=== PATIENT | female | born 1950 | race Caucasian/White ===

== ENCOUNTER 2016-09-08 12:12 | Emergency (ER) | payer MEDICARE, BC ==
[2016-09-08] MEDS ORDERED: NORMAL SALINE 1,000 ML IV ONE (12:36)
[2016-09-08] MEDS ORDERED: FAMOTIDINE 10 MG/ML VIAL IV ONE ×2 (12:52→13:35)
[2016-09-08 12:54] LABS: Hematocrit 29.9 % (37.0-47.0); Hemoglobin 9.5 gm/dL (12.5-16.0); Mean Cell Volume 86.7 fl (78-100); Mean Corpuscular Hemoglobin 27.5 pg (27-31); Mean Corpuscular Hgb Conc 31.8 g/dl (32-36); Neutrophil # 5.1 K/mm3 (1.3-6.0); Neutrophil % 62.4 % (42-75.0); Platelet Count 136 K/mm3 (150-450); Red Blood Count 3.45 M/mm3 (4.2-5.4); White Blood Count 8.2 K/mm3 (4.0-10.5)
[2016-09-08 13:17] LABS: Albumin * 3.1 gm/dl (3.4-5.0); BUN/Creatinine Ratio 42.3 (9.0-21.6); Bilirubin, Total 0.6 mg/dL (0.0-1.1); Ca. Corrected For Albumin 9.1 mg/dL (8.4-10.2); Calcium * 8.7 mg/dL (7.9-10.9); Carbon Dioxide 27.5 mmol/L (24-32.6); Potassium 4.5 mmol/L (3.4-4.6); Total Protein 7.2 gm/dL (6.2-8.2)
[2016-09-08 13:19] LABS: Prothrombin Time (Patient) 10.9 Seconds (9.4-11.4)
[2016-09-08 13:25] LABS: INR 1.05 INR (0.90-1.10)
--- NOTE | 2016-09-08 13:28 | ERNOTE ---
GI Bleeding/Rectal Pain ER Date of Service: 09/08/16 Time Seen by Provider: 09/08/16 12:29 Immunizations: IMMUNIZATION HX Immunizations Up to Date Yes History of Influenza Vaccine Yes Hx Pneumococcal Vaccination Yes Allergies/Adverse Reactions: Allergies lactose Adverse Reaction (Mild, Verified 09/08/16 12:30) GAS latex Adverse Reaction (Mild, Verified 09/08/16 12:30) RASH Home Medications: HOME MEDICATIONS Insulin Aspart [Novolog Flexpen] 10 unit SQ AC 09/18/13 [Last Taken Unknown] Insulin Glargine,Hum.rec.anlog [Lantus] 30 unit SQ BID 09/18/13 [Last Taken Unknown] Cholecalciferol (Vitamin D3) [Vitamin D3] 1,000 unit PO DAILY 12/01/14 [Last Taken Unknown] Aspirin [Aspirin EC] 81 mg PO DAILY 04/20/16 [Last Taken Unknown] Nadolol [Corgard] 40 mg PO DAILY 09/08/16 [Last Taken Unknown] Narrative: Here for vomiting coffee ground and feeling dizzy when she stands up. has a history of Cirrhosis and esophageal varices - Patient's Past Medical History Patient History - Medical: Anemia, Anesthesia Reaction, Arthritis, Diabetes Type 2, Depression, GERD, Headache, Liver Disease, UTI'S Patient History - Cardiac/Respiratory: Myocardial Infarction Patient History - Cancer: No Hx of Cancer Patient History - Surgical Procedures: Cataracts, Colonoscopy, Cardiac stent, EGD, Hysterectomy, Other Patient History - Other: None LMP (females 10-50): Menopausal - Family History Mother Family History - Medical: No pertinent hx Family History - Cardiac/Respiratory: No pertinent hx - Social History Living Situations: home Abuse History: No History of abuse Psych History: Hx of Depression Smoking Status: Never smoker Alcohol Use: none Drug Use: none - Immunizations Immunizations Up to Date: Yes Hx Pneumococcal Vaccination: Yes History of Influenza Vaccine: Yes ED Progress - Vital Signs Vital Signs: Vital Signs 09/08/16 09/08/16 12:22 12:38 Temperature 35.9 C L Pulse Rate 72 78 Respiratory 16 Rate Blood Pressure 113/56 82/38 O2 Sat by Pulse 100 Oximetry - Progress/Reassessment Chief Complaint: GI Bleed Departure Clinical Impression: Upper GI bleeding - Departure Disposition: [facility] Condition: Fair Referrals: Kavya Jacinto MD [Primary Care Provider] -
[2016-09-08] MEDS ORDERED: ONDANSETRON HCL/PF 2 MG/ML VIAL IV ONE (14:22)
[2016-09-08] MEDS ORDERED: ONDANSETRON HCL/PF 2 MG/ML VIAL ONE (14:26)
[2016-09-08 14:40] VITALS: BP 135/50
== END 2016-09-08 14:42 | disposition short-term general hospital (02) ==
LOC: ER 12:12
DX: K92.2 Gastrointestinal hemorrhage, unspecified (principal); E11.9 Type 2 diabetes mellitus without complications; Z79.4 Long term (current) use of insulin

== ENCOUNTER 2016-10-19 07:18 | Emergency (ER) | payer MEDICARE, BC ==
[2016-10-19] MEDS ORDERED: ONDANSETRON HCL/PF 2 MG/ML VIAL IV ONE ×2 (07:45→09:39)
[2016-10-19] MEDS ORDERED: NORMAL SALINE 1,000 ML IV ONE (07:46)
--- NOTE | 2016-10-19 07:53 | ERNOTE ---
<Kyler Berrios - Last Filed: 10/19/16 08:15> Medical Problem HPI - General Chief Complaint: Nausea/Vomiting Time Seen by Provider: 10/19/16 07:45 Source: patient Exam Limitations: no limitations - Immun/Allergies/Home Medications Immunizations: IMMUNIZATION HX Immunizations Up to Date Yes History of Influenza Vaccine Yes Hx Pneumococcal Vaccination Yes Allergies/Adverse Reactions: Allergies lisinopril Allergy (Verified 10/19/16 07:36) lactose Adverse Reaction (Mild, Verified 10/19/16 07:36) GAS latex Adverse Reaction (Mild, Verified 10/19/16 07:36) RASH Home Medications: HOME MEDICATIONS Insulin Aspart [Novolog Flexpen] 13 unit SQ AC 09/18/13 [Last Taken Unknown] Insulin Glargine,Hum.rec.anlog [Lantus] 30 unit SQ BID 09/18/13 [Last Taken Unknown] Cholecalciferol (Vitamin D3) [Vitamin D3] 1,000 unit PO DAILY 12/01/14 [Last Taken Unknown] Aspirin [Aspirin EC] 81 mg PO DAILY 04/20/16 [Last Taken Unknown] Nadolol [Corgard] 40 mg PO DAILY 09/08/16 [Last Taken Unknown] Dicyclomine HCl [Bentyl] 1 tab PO Q6H PRN #20 tablet 10/19/16 [Last Taken Unknown] Metoclopramide HCl [Reglan] 1 tab PO Q6H PRN #30 tab 10/19/16 [Last Taken Unknown] - History of Present History Narrative: approx 20:00 last night pt began to have nausea and an hour or two later began to vomit small amounts of clear liquid. Pt has been unable to hold down anything throughout the night. Timing: intermittent Severity: moderate Modifying Factors - (Worsens): Present: eating Review of Systems - Review of Systems Constitutional: Present: fatigue. Absent: recent illness EYE: Present: no symptoms reported ENT: Present: no symptoms reported Respiratory: Absent: shortness of breath Cardiology: Absent: chest pain Gastrointestinal/Abdominal: Present: See HPI, constipation - last BM Monday morning, abdominal pain, other - Melana and coffee ground emesis 3 weeks ago transferred to [facility], no source of bleeding found.. Absent: diarrhea Genitourinary: Present: no symptoms reported Musculoskeletal: Present: no symptoms reported Skin: Present: no symptoms reported Neurological: Present: no symptoms reported Endocrine: Present: no symptoms reported Hematologic/Lymphatic: Present: other - Anemia due to recent GI bleed, recieved Iron Psych: Present: no symptoms reported - Patient's Past Medical History Patient History - Medical: Anemia, Anesthesia Reaction, Arthritis, Diabetes Type 2, Depression, GERD, Headache, Liver Disease, UTI'S Patient History - Cardiac/Respiratory: Myocardial Infarction Patient History - Cancer: No Hx of Cancer Patient History - Surgical Procedures: Cataracts, Colonoscopy, Cardiac stent, EGD, Hysterectomy, Other Patient History - Other: None - Family History Mother Family History - Medical: No pertinent hx Family History - Cardiac/Respiratory: No pertinent hx - Social History Living Situations: alone Abuse History: No History of abuse Psych History: Hx of Depression Smoking Status: Never smoker Have you smoked in the past 12 months: No Do you dip or chew tobacco: No Alcohol Use: none Drug Use: none - Immunizations Immunizations Up to Date: Yes Hx Pneumococcal Vaccination: Yes History of Influenza Vaccine: Yes Physical Exam - Physical Exam General Appearance: Present: wd/wn, alert, no apparent distress Eye Exam: Normal inspection: bilateral, PERRL: bilateral Ears, Nose, Throat: Present: normal ENT inspection Neck: Present: normal inspection, nontender Respiratory: Present: no respiratory distress, normal breath sounds, lungs clear Cardiovascular/Chest: Present: regular rate, rhythm, no murmur, normal peripheral pulses Gastrointestinal/Abdominal: Present: normal bowel sounds, tenderness - diffuse across R & LUQ . Absent: distended, guarding, rebound Back Exam: Present: normal inspection, normal range of motion Neurological Exam: Present: alert, oriented, normal mood/affect, no motor/ sensory deficits Skin Exam: Present: normal color, warm/dry ED Progress - Vital Signs Vital Signs: Vital Signs 10/19/16 07:24 Temperature 37.3 C Pulse Rate 72 Respiratory 14 Rate Blood Pressure 123/48 - Progress/Reassessment Chief Complaint: Nausea/Vomiting Progress:: Unchanged - Transfer of Care Physician Sign Out: Kyler Berrios Receiving Physician: Kyle Glass Pending Results: Labs, X-ray results Departure - Departure Clinical Impression: Vomiting Qualifiers: Vomiting type: unspecified Vomiting Intractability: non-intractable Nausea presence: with nausea Qualified Code(s): R11.2 - Nausea with vomiting, unspecified Disposition: Home self-care Instructions: Nausea and Vomiting, Adult, [id number] Prescriptions: Dicyclomine HCl [Bentyl] 1 tab PO Q6H PRN #20 tablet PRN Reason: Abdominal cramps Metoclopramide HCl [Reglan] 1 tab PO Q6H PRN #30 tab PRN Reason: Nausea And Vomiting <QuanKyle - Last Filed: 10/19/16 11:48> Medical Problem HPI - Narrative Date of Service: 10/19/16 - Immun/Allergies/Home Medications Immunizations: IMMUNIZATION HX Immunizations Up to Date Yes History of Influenza Vaccine Yes Hx Pneumococcal Vaccination Yes ED Progress - Results and Orders Patient's Lab Results:: I have reviewed the patient's lab results. - Vital Signs Patient's Vital Signs:: I have reviewed the patient's vital signs. Vital Signs: Vital Signs 10/19/16 10/19/16 10/19/16 07:24 07:41 08:08 Temperature 37.3 C 37.3 C Pulse Rate 72 72 71 Respiratory 14 14 13 Rate Blood Pressure 123/48 133/40 123/40 O2 Sat by Pulse 96 95 96 Oximetry 10/19/16 10/19/16 10/19/16 09:00 09:36 10:29 Temperature 36.5 C 37.6 C H Pulse Rate 80 81 79 Respiratory 12 14 14 Rate Blood Pressure 144/64 145/65 123/56 O2 Sat by Pulse 94 93 91 Oximetry 10/19/16 10:48 Temperature 37.3 C Pulse Rate 77 Respiratory 14 Rate Blood Pressure 132/63 O2 Sat by Pulse 95 Oximetry - Progress/Reassessment Progress:: Improved - at discharge
[2016-10-19 08:00] LABS: Hematocrit 29.4 % (37.0-47.0); Hemoglobin 9.3 gm/dL (12.5-16.0); Mean Cell Volume 77.2 fl (78-100); Mean Corpuscular Hemoglobin 24.4 pg (27-31); Mean Corpuscular Hgb Conc 31.6 g/dl (32-36); Mean Platelet Volume 9.9 fl (6.0-9.5); Neutrophil # 10.8 K/mm3 (1.3-6.0); Neutrophil % 80.3 % (42-75.0); Platelet Count 160 K/mm3 (150-450); Red Blood Count 3.81 M/mm3 (4.2-5.4); Red Cell Distribution Width 17.2 % (11.5-14.0); White Blood Count 13.5 K/mm3 (4.0-10.5)
[2016-10-19] MEDS ORDERED: ONDANSETRON HCL/PF 2 MG/ML VIAL ONE ×2 (08:02→09:35)
--- OUTSIDE RECORDS SUMMARY | 2016-10-19 08:10 | XMS REPORT | Continuity of Care Document ---
:1950 Author Organization [facility] ([facility]) Address [address] [place] [address] Phone [phone] Care Team Providers Name Role Phone Kavya Jacinto Primary Care Provider [phone] Source Comments This disclosure is being made pursuant to the Care Everywhere program, applicable federal and state laws, and may not contain all informaitonavailable regarding this patient.[facility] ([facility]) Active Allergies and Adverse Reactions Allergen Noted Date Severity Reactions Comments Latex 09/08/2015 Rash Current Medications Prescription Sig. Disp. Refills Start End Date Status Date DULoxetine 30 mg XR Take 30 mg by Active capsule mouth daily. nadolol 40 mg Take 1 tablet (40 30 tablet 11 Active tablet mg total) by mouth 6 daily. INSULIN Inject 30 Units Active GLARGINE,HUM.REC.AN subcutaneously 2 LOG (LANTUS SC) times daily. INSULIN ASPART Inject 10 Units Active (NOVOLOG SC) subcutaneously 3 times daily. furosemide 20 mg Take 1 tablet (20 30 tablet 3 Active tablet mg total) by mouth 7 daily. vitamin E 400 unit Take 400 Units by Active capsule mouth daily. spironolactone 25 Take 25 mg by Active mg tablet mouth daily. CALCIUM Take 1 tablet by Active CARBONATE/VITAMIN mouth daily. D3 (CALCIUM + D PO) aspirin 81 mg EC Take 1 tablet (81 30 tablet 0 Active tablet mg total) by mouth 7 daily. Please start taking after two repeat hemoglobins are drawn within 7 days. You can restart this medication after 09/17 pantoprazole 40 mg Take 1 tablet (40 60 tablet 1 Active EC tablet mg total) by mouth 7 2 times daily. pantoprazole 40 mg Take 1 tablet (40 45 tablet 0 10/19/19 Discontinued EC tablet mg total) by mouth 7 17 2 times daily. Active Problems Problem Noted Date Alcoholic cirrhosis of liver without ascites 12/15/2015 Overview: With varices Diabetes mellitus type 2, controlled 09/08/2015 Diabetic neuropathy 09/08/2015 Unsteady gait 09/08/2015 Frequent falls 09/08/2015 Essential hypertension 09/08/2015 Depression 09/08/2015 GERD (gastroesophageal reflux disease) 09/08/2015 Coronary artery disease involving [place] coronary artery without angina 2015 pectoris Vision disturbance 09/08/2015 Stress incontinence 09/08/2015 Resolved Problems Problem Noted Date Resolved Date Gastrointestinal hemorrhage 09/08/2016 09/09/2016 Most Recent Encounters Date Type Specialty Providers Description 10/18/2016 Telephone Med GI/Hepatology Jayda Tran Chief Comp: Need Prior Authorization 10/18/2016 Refill Med GI/Hepatology Neo Gary, Dx: Alcoholic cirrhosis RN of liver without ascites (Primary Dx) 10/07/2016 Telephone Med GI/Hepatology Radha Ellison RN 09/13/2016 Nurse Triage General Care Jessie Hampton, Chief Comp: IP Inpatient - Adult training developer Follow-up Call 09/08/2016 - [facility] Jb Adamson Dx: Gastrointestinal 09/10/2016 Encounter Inpatient - Adult MD hemorrhage with Ball, Prosper hematemesis (Primary JrMD [place] Dx) Tawnya Gallego MD Iyer, Priyanka, MD 09/05/2016 Refill Med GI/Hepatology Kevin, Dx: 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 (Primary Dx) 09/02/2016 Orders/Notes Transplant JAMMIE Brown/GUILHERME/CRYS Cornelius MD 08/25/2016 Office Visit Med GI/Hepatology Kevin Dx: 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 (Primary Dx) 08/25/2016 Hospital Radiology Melvin Stark Dx: Pre-procedure lab Encounter MD Beau exam (Primary Dx) Immunizations Name Dates Previously Given Next Due Influenza, unspecified 05/07/2015 Social History Tobacco Use Types Packs/Day Years Used Date Never Smoker Smokeless Tobacco: Never Used Tobacco Cessation:Counseling Given: Yes Comments: Alcohol Use Drinks/Week oz/Week Comments No 0 Standard drinks or equivalent 0.0 Quit 30 years ago Last Filed Vital Signs Vital Sign Reading Time Taken Blood Pressure 116/54 09/10/2016 11:11 AM BIOLOGY LECTURER Pulse 81 09/10/2016 11:11 AM BIOLOGY LECTURER Temperature 36.8 C (98.2 F) 09/10/2016 11:11 AM BIOLOGY LECTURER Respiratory Rate 16 09/10/2016 11:11 AM BIOLOGY LECTURER Height 1.702 m (5' 7") 09/08/2016 11:45 PM BIOLOGY LECTURER Weight 83.7 kg (184 lb 8.4 oz) 09/08/2016 11:45 PM BIOLOGY LECTURER Body Mass Index 28.89 09/08/2016 11:45 PM BIOLOGY LECTURER Oxygen Saturation 97% 09/10/2016 11:11 AM BIOLOGY LECTURER Plan of Care Date Type Specialty Providers Description 11/14/2016 Appointment Radiology Subj: Appointment Scheduled 03/23/2017 Appointment Med GI/Hepatology Adryan Brown MD Subj: Appointment [address] [place] [address] [phone] (Fax) Health Maintenance Due Date Last Done Comments HCV Screening 1950 Hepatitis B Vaccine (1 of 3 - Primary 1950 Series) Tdap Vaccine 1960 DIABETIC: Cholesterol 1967 Diabetic: Hdl 1967 Diabetic: Ldl 1967 DIABETIC: Microalbumin 1967 DIABETIC: Triglycerides 1967 Td Vaccine 1967 Mammogram 1989 Colonoscopy 1999 Zoster Vaccine 2009 Osteoporosis Screening (DXA Bone Density) 2014 Pneumococcal Vaccine (1 of 2 - PCV13) 2014 DIABETIC: Foot Exam 09/08/2015 DIABETIC: Retinal Eye Exam 09/08/2015 Influenza Vaccine: Seasonal (#1) 03/07/2016 05/07/2015 DIABETIC: Hemoglobin A1C 06/16/2016 12/15/2015, 09/08/2015 Results from Last 3 Months HEMOGLOBIN (09/10/2016 1:06 PM)Only the most recent of2 resultswithin the time period is included. Component Value Range Hemoglobin 8.7(L) 11.9-15.5 g/dL Specimen Whole Blood BLOOD GLUCOSE, BEDSIDE (09/10/2016 12:09 PM)Only the most recent of9 resultswithin the time period is included. Component Value Range Glucose, Accu-Chek 344(H) 65-99 mg/dL Specimen Blood, capillary BASIC METABOLIC PANEL W/ CALCIUM (CHEM 8) (09/10/2016 8:12 AM)Only the most recent of2 resultswithin the time period is included. Component Value Range Sodium 137 135-145 mEq/L Potassium 4.1 3.5-5.0 mEq/L Chloride 103 95-107 mEq/L CO2 25 22-29 mEq/L Anion Gap 9 8-18 mEq/L BUN 13 10-20 mg/dL Creatinine 0.9Comment: 0.5-1.0 mg/dL Creatinine switched to enzymatic method on 12/14/2010.GFR equation switched to IDMS-traceable MDRD equation on 12/14/2010. Calculated GFR values are not valid in clinical settings where serum creatinine is changing. Glucose 308(H)Comment: 65-99 mg/dL The Expert Committee on the Diagnosis and Classification of Diabetes has defined impaired fasting glucose as greater than or equal to 100 mg/dL but less than 126 mg/dL.(Diabetes Care 28 (Suppl 1)S41,2005) Calcium 8.1(L) 8.5-10.5 mg/dL Calculated GFR 62 >60 mL/min/1.73 m2 Specimen Blood CBC (COMPLETE BLOOD COUNT) (09/10/2016 8:12 AM)Only the most recent of2 resultswithin the time period is included. Component Value Range WBC Count 6.0 3.7-10.5 K/MM3 RBC Count 3.12(L) 4.00-5.20 M/MM3 Hemoglobin 8.6(L) 11.9-15.5 g/dL Hematocrit 27(L) 35-47 % MCV (Mean Corpuscular Volume) 87 82-99 FL MCH (Mean Corpuscular Hemoglobin) 28 25-35 PG MCHC (Mean Corpuscular Hemoglobin Concentration) 32 32-36 % Platelet Count 104(L) 150-400 K/MM3 MPV (Mean Platelet Volume) 11.3 9.4-12.3 FL RBC Dist Width-STD 50.4(H) 36.4-46.3 FL RBC Distrib Width 15.8(H) 9.0-14.5 % Nucleated RBC 0 /100 WBC Specimen Whole Blood ENDOSCOPY UPPER (09/09/2016 12:30 PM) Narrative Aniket Wagner MD 09/09/2016 12:30 PM ENDOSCOPY UPPER Esophagogastroduodenoscopy (EGD) procedure note Procedure Date: 09/09/2016 Procedure: Esophagogastroduodenoscopy (EGD) Indications: coffee ground emesis Attending Staff: Andree Vick MD Fellow: MD Kevin Referring Physician: Kavya Jacinto Consent: The risks, benefits, indications, potential complications, and alternatives were explained to the patient and informed consent obtained. Medications No current facility-administered medications on file prior to encounter. Current Outpatient Prescriptions on File Prior to Encounter Medication Sig Dispense Refill aspirin 81 mg EC tablet Take 81 mg by mouth daily. DULoxetine 30 mg XR capsule Take 30 mg by mouth daily. furosemide 20 mg tablet Take 1 tablet (20 mg total) by mouth daily. 30 tablet 3 INSULIN ASPART (NOVOLOG SC) Inject 10 Units subcutaneously 3 times daily. INSULIN GLARGINE,HUM.REC.ANLOG (LANTUS SC) Inject 30 Units subcutaneously 2 times daily. nadolol 40 mg tablet Take 1 tablet (40 mg total) by mouth daily. 30 tablet 11 Allergies: Allergies Allergen Reactions Latex Rash ASA Class: 3 Preoperative Anesthesia Assessment: Based on the pre-procedure assessment, including review of the patient's medical history, medications, allergies, and review of systems, elizabeth been deemed to be an appropriate candidate for conscious sedation; she was therefore sedated with the medications listed below. Procedural Medications: Versed 4 mg IV, fentanyl 25 mcg IV The procedure sedation was given under my direction from 09/09/16 12:11 PM to 09/09/16 12:18 PM. Description of Procedure: The patient was placed in the left lateral decubitus position. The patient was monitored continuously withpulse oximetry, blood pressure monitoring, and direct observations. The gastroscope was inserted into the mouth and advanced under direct vision to third portion of the duodenum.A careful inspection was made as the gastroscope was withdrawn, including a retroflexed view of the proximal stomach; findings and interventions are described below. Photographs: Appropriate photodocumentation was obtained. Biopsy/Specimens: none Findings: Duodenum: the duodenum was explored to D3.The mucosa was endoscopically normal without ulcerations or erosions.Random biopsies were not taken. Stomach: The stomach insufflated normally, normal rugal folds, the mucosa appeared normal with no ulcers, erosions or erythema, but showed mild signs of portal hypertensive gastropathy. Retroflexion showed normal fundus. No evidence of recent or active bleeding Esophagus:Z-line was noted at 42 cm and was regular.No hiatal hernia.No esophageal varices, no endoscopic evidence of esophagitis. There was evidence of scarring from prior banding. Complications: The patient did tolerate the procedure well and no complications were noted. Impression: No signs of recent or active bleeding. Mild portal hypertensive gastropathy Plan: Stop octreotide Stop IV PPI and start PO PPI No need for further GI procedures this admission Monae Brown MD Gastroenterology/Hepatology Fellow Pager#: [phone] Teaching Statement: Dr. Manjit Rodriguez present for the entire procedure. Aniket Mathias MD Clinical Revenue Audit Clerk Department of Internal Medicine Division of Gastroenterology and Hepatology [address] [place] [address] Fax [email or web address] DIFFERENTIAL (09/09/2016 8:53 AM)Only the most recent of2 resultswithin the time period is included. Component Value Range % Neutrophils-Auto Diff 60.5 % Neutrophils-Auto Diff 3190 9377-1935 /MM3 % Lymphocytes-Auto Diff 26.4 % Lymphocytes-Auto Diff 3424 059-0058 /MM3 % Monocytes-Auto Diff 8.0 % Monocytes-Auto Diff 420 130-860 /MM3 % Eosinophils-Auto Diff 3.6 % Eosinophils-Auto Diff 190 40-390 /MM3 % Basophils 1.3 % Basophils-Auto Diff 70 10-136 /MM3 % Immature Granulocytes-Auto Diff 0.2 % Immature Granulocytes-Auto Diff 10 /MM3 Specimen Whole Blood CBC (COMPLETE BLOOD COUNT) (09/09/2016 8:53 AM)Only the most recent of2 resultswithin the time period is included. Component Value Range WBC Count 5.3 3.7-10.5 K/MM3 RBC Count 3.13(L) 4.00-5.20 M/MM3 Hemoglobin 8.8(L) 11.9-15.5 g/dL Hematocrit 27(L) 35-47 % MCV (Mean Corpuscular Volume) 87 82-99 FL MCH (Mean Corpuscular Hemoglobin) 28 25-35 PG MCHC (Mean Corpuscular Hemoglobin Concentration) 33 32-36 % Platelet Count 107(L) 150-400 K/MM3 MPV (Mean Platelet Volume) 11.6 9.4-12.3 FL RBC Dist Width-STD 51.4(H) 36.4-46.3 FL RBC Distrib Width 16.3(H) 9.0-14.5 % Nucleated RBC 0 /100 WBC Specimen Whole Blood PT/INR (PROTHROMBIN TIME/INR) VENOUS (09/09/2016 8:53 AM)Only the most recent of3 resultswithin the time period is included. Component Value Range PT (Prothrombin Time) 11 9-12 secs INR 1.1 <4.0 Specimen Blood GAMMA GLUTAMYLTRANSPEPTIDASE (09/09/2016 8:53 AM) Component Value Range GGT 166(H) 5-36 U/L Specimen Blood BILIRUBIN, TOTAL (09/09/2016 8:53 AM) Component Value Range Bilirubin Total 0.4 <=1.2 mg/dL Specimen Blood BILIRUBIN, DIRECT (09/09/2016 8:53 AM) Component Value Range Bilirubin, Direct <0.2 0.0-0.2 mg/dL Specimen Blood ASPARTATE AMINOTRANSFERASE (09/09/2016 8:53 AM) Component Value Range AST 41(H)Comment: 0-32 U/L Adult reference ranges updated on 07/02/13 at 830am Specimen Blood ALANINE AMINOTRANSFERASE (09/09/2016 8:53 AM) Component Value Range ALT 53(H)Comment: 0-33 U/L The upper limit of normal for alanine aminotransferase (ALT) reference ranges for adults is controversial with some authorities recommending limit as low as 30 U/L for males and 19 U/L for females. Th ere is increased incidence of subclinical liver disease (e.g., early steatohepatitis) in patients with ALT values in the range of 31-41 U/L for males and 20-33 U/L for females. ALT values should alway s be interpreted in conjunction with clinical history, physical examination findings, and, if applicable, data from other diagnostic tests. Specimen Blood ALKALINE PHOSPHATASE (09/09/2016 8:53 AM) Component Value Range ALP 137(H) 35-104 U/L Specimen Blood ALBUMIN (09/09/2016 8:53 AM) Component Value Range Albumin 3.1(L) 3.4-4.8 g/dL Specimen Blood CHEM 7 PANEL (09/09/2016 8:53 AM) Component Value Range Sodium 144 135-145 mEq/L Chloride 108(H) 95-107 mEq/L Potassium 3.9 3.5-5.0 mEq/L CO2 25 22-29 mEq/L BUN 23(H) 10-20 mg/dL Creatinine 0.8Comment: 0.5-1.0 mg/dL Creatinine switched to enzymatic method on 12/14/2010.GFR equation switched to IDMS-traceable MDRD equation on 12/14/2010. Calculated GFR values are not valid in clinical settings where serum creatinine is changing. Glucose 91Comment: 65-99 mg/dL The Expert Committee on the Diagnosis and Classification of Diabetes has defined impaired fasting glucose as greater than or equal to 100 mg/dL but less than 126 mg/dL.(Diabetes Care 28 (Suppl 1)S41,2005) Anion Gap 11 8-18 mEq/L Calculated GFR 72 >60 mL/min/1.73 m2 Specimen Blood CBC WITH DIFFERENTIAL (09/09/2016 8:53 AM)Only the most recent of2 resultswithin the time period is included. Specimen Whole Blood Narrative The following orders were created for panel order CBC WITH DIFFERENTIAL. Procedure Abnormality Status --------- ------ CBC (COMPLETE BLOOD COUNT)[[id number]] AbnormalFinal result DIFFERENTIAL[[id number]] Final result Please view results for these tests on the individual orders. MICROSCOPIC URINALYSIS (09/09/2016 12:37 AM)Only the most recent of2 resultswithin the time period is included. Component Value Range White Blood Cells, Urine 155(H) 0-5 /HPF Red Blood Cells, Urine 120(H) 0-2 /HPF Squamous Epithelial Cells, Urine 19(H) <=10 /LPF Specimen Urine URINALYSIS WITH REFLEX CULTURE (09/09/2016 12:37 AM)Only the most recent of2 resultswithin the time period is included. Component Value Range Color, Urine Yellow Straw, Pale Yellow, Yellow, Clear, None Clarity, Urine Slightly Cloudy(A) Clear pH, Urine 7.0 <9.0 Spec [place], Urine 1.015 1.000-1.030 Glucose, Urine Negative Negative Blood, Urine 2+(A) Negative Ketones, Urine Negative Negative Protein, Urine Negative Negative Urobilinogen, Urine Normal Normal Bilirubin, Urine Negative Negative Leukocyte Esterase, Urine 3+(A) Negative Nitrite, Urine Negative Negative Specimen Urine URINALYSIS WITH REFLEXED CULTURE AND MICROSCOPIC EXAM (09/09/2016 12:37 AM)Only the most recent of2 resultswithin the time period is included. Specimen Culture - Urine, Midstream clean catch Narrative The following orders were created for panel order URINALYSIS WITH REFLEXED CULTURE AND MICROSCOPIC EXAM. Procedure Abnormality Status --------- ------ URINALYSIS WITH REFLEX C...[[id number]]AbnormalFinal result MICROSCOPIC URINALYSIS[[id number]] Abnormal Final result URINE CULTURE, REFLEXED[[id number]]Abnormal Final result Please view results for these tests on the individual orders. URINE CULTURE, REFLEXED (09/09/2016 12:37 AM)Only the most recent of2 resultswithin the time period is included. Component Value Range Quantitative Culture 10,000-100,000 CFU/mL Enterococcus faecalis(A)Comment: Synergy for gentamicin when combined with ampicillin or vancomycin Synergy for streptomycin when combined with ampicillin or vancomycin. Specimen Culture - Urine, Midstream clean catch Narrative Identification performed by MALDI-TOF mass spectrometry (MS).The performance characteristics of MALDI-TOF MS were determined by the [facility].It has not been cleared orApproved by the FDA. The FDA has determined that such clearance or approval is not necessary.This test is for clinical purposes. It should not be regarded as investigational or for research.The laboratory is certified under the Clinical Laboratory Improvement Amendments of 1988 (CLIA) as qualified to perform high complexity clinical laboratory testing. Organism Antibiotic Method Susceptibility Enterococcus faecalis AMPICILLIN <=2: Susceptible Enterococcus faecalis GENTAMICIN HIGH LEVEL Susceptible Enterococcus faecalis LEVOFLOXACIN 1: Susceptible Enterococcus faecalis NITROFURANTOIN <=16: Susceptible Enterococcus faecalis STREPTOMYCIN HIGH LEVEL Susceptible Enterococcus faecalis VANCOMYCIN 2: Susceptible TYPE AND SCREEN (BLOOD TYPE(ABORH) AND RBC ANTIBODY SCREEN) (09/08/2016 4:36 PM ) Component Value Range ABORH B Negative Specimen Expiration Date 2016-09-11 Antibody Screen Negative Specimen Blood LIPASE (09/08/2016 4:34 PM) Component Value Range Lipase 51 13-60 U/L Specimen Blood PTT (PARTIAL THROMBOPLASTIN TIME) (09/08/2016 4:34 PM) Component Value Range PTT 22 22-31 secs Specimen Blood HEPATIC FUNCTION PANEL (09/08/2016 4:34 PM) Component Value Range Albumin 3.4 3.4-4.8 g/dL ALP 157(H) 35-104 U/L Bilirubin Total 0.5 <=1.2 mg/dL Bilirubin, Direct <0.2 0.0-0.2 mg/dL ALT 65(H) 0-33 U/L Total Protein 7.1 6.0-8.0 g/dL AST Hemolyzed(A)Comment: U/L For inpatient phlebotomy redraws, please contact pager #[phone] between the hours of 05:00 to 13:00. Specimen Blood LACTIC ACID, WHOLE BLOOD ([facility]) (09/08/2016 4:34 PM) Component Value Range Lactic Acid, Whole Blood 1.1Comment: 0.5-2.0 mEq/L Glycolate, the principle toxic metabolite of ethylene glycol, can cause artifactual elevation of measured lactate. Specimen Blood ALPHA-FETOPROTEIN (08/25/2016 3:23 PM) Component Value Range AFP 1.8 0.0-9.0 ng/mL Specimen Blood AMMONIA, PLASMA (08/25/2016 3:23 PM) Component Value Range Plasma Ammonia 31 16-60 mol/L Specimen Blood COMPREHENSIVE METABOLIC PANEL (CMP) (08/25/2016 3:23 PM) Component Value Range Sodium 140 135-145 mEq/L Potassium 5.1(H) 3.5-5.0 mEq/L Chloride 103 95-107 mEq/L CO2 29 22-29 mEq/L Anion Gap 8 8-18 mEq/L BUN 18 10-20 mg/dL Creatinine 0.9Comment: 0.5-1.0 mg/dL Creatinine switched to enzymatic method on 12/14/2010.GFR equation switched to IDMS-traceable MDRD equation on 12/14/2010. Calculated GFR values are not valid in clinical settings where serum creatinine is changing. Glucose 143(H)Comment: 65-99 mg/dL The Expert Committee on the Diagnosis and Classification of Diabetes has defined impaired fasting glucose as greater than or equal to 100 mg/dL but less than 126 mg/dL.(Diabetes Care 28 (Suppl 1)S41,2005) Calcium 8.4(L) 8.5-10.5 mg/dL Total Protein 7.6 6.0-8.0 g/dL Albumin 3.5 3.4-4.8 g/dL AST 44(H)Comment: 0-32 U/L Adult reference ranges updated on 07/02/13 at 830am ALP 211(H) 35-104 U/L Bilirubin Total 0.6 <=1.2 mg/dL ALT 42(H)Comment: 0-33 U/L The upper limit of normal for alanine aminotransferase (ALT) reference ranges for adults is controversial with some authorities recommending limit as low as 30 U/L for males and 19 U/L for females. Th ere is increased incidence of subclinical liver disease (e.g., early steatohepatitis) in patients with ALT values in the range of 31-41 U/L for males and 20-33 U/L for females. ALT values should alway s be interpreted in conjunction with clinical history, physical examination findings, and, if applicable, data from other diagnostic tests. Calculated GFR 62 >60 mL/min/1.73 m2 Specimen Blood MRI ABDOMEN W/WO CONTRAST ([id number]) (08/25/2016 2:58 PM) Impressions Impression: 1. Cirrhotic liver. 2. Stable subcentimeter hypoenhancing fat-containing nodule in hepatic segment 7; differential diagnosis includes HCC, fat-containing regenerative nodule and (less likely) hepatic adenoma (LR3/4). 3. Small early enhancing lesion with washout to isointensity in segment 4A (LR 3). 4. Small Tranter perfusion abnormality in peripheral segment 5. 5. Cholelithiasis. Narrative Procedure: MRI ABDOMEN W/WO CONTRAST ([id number]) Clinical Indication: Cirrhosis, F/U LR3-4 lesions in January/2016. Technique: MRI of the abdomen with attention to the liver was performed on a 1.5 [facility] scanner using a surface multicoil. Imaging consisted of 3 plane TrueFISP localizer, coronal HASTE T2 localizer, axial T1 FLASH in- and bbi-la-pakci, axial T2 fat-sat BRICE, axial T2* GRE, axial long TE T2 HASTE, axial diffusion-weighted imaging, axial fat-sat T1 FLASH, and pre-contrast, multiphase dynamic post-contrast and 20 min post-contrast (hepatocyte phase) axial fat-sat T1 3D VIBE. Imaging was performed before and after administration IV Eovist. 20 ml of IV contrast was administered. Comparison:MRI with Gadavist dated 01/18/2016. Findings: Lower chest: Normal Liver: Liver is cirrhotic and measures 17.6 cm craniocaudal. There is a stable 0.9 cm lesion in segment 7 shows mild hyperintensity versus background liver on in phase T1, signal loss on opposed phase T1, near isointensity on fat-sat T2, does not exclude iron on T2* gradient echo, and appears hypointense versus background liver on all postcontrast phases. 7 mm early enhancing lesion at dome in anterior segment 4A shows washout to isointensity, unchanged. 6 mm peripheral wedge-shaped area of transient early enhancement in segment 5. Patent portal veins and hepatic veins. Small recanalized umbilical vein. Small distal esophageal and perigastric varices. Bile ducts: Not dilated. Gallbladder: Multiple small gallstones. No gallbladder wall thickening. Pancreas: There are a few tiny cysts in the uncinate process, unchanged. Spleen: Mildly enlarged at 13 cm. Adrenal glands: Normal Kidneys: Tiny right renal cyst. 2 left renal arteries. Ureters: Normal Aorta: Normal. Left gastric artery arises directly from aorta. Retroperitoneum: No lymphadenopathy. Peritoneum: Trace ascites. Mesentery: Normal Stomach: Not distended. Bowel: Not distended. Abdominal wall: Normal. Bones: Hemangioma on right side of L2. Procedure Note Zve, Incoming Imaging Results - [facility] Aug 25, 2016 4:48 PM BIOLOGY LECTURER Procedure: MRI ABDOMEN W/WO CONTRAST ([id number]) Clinical Indication: Cirrhosis, F/U LR3-4 lesions in January/2016. Technique: MRI of the abdomen with attention to the liver was performed on a 1.5 [facility] scanner using a surface multicoil. Imaging consisted of 3 plane TrueFISP localizer, coronal HASTE T2 localizer, axial T1 FLASH in- and [id number], axial T2 fat-sat BRICE, axial T2* GRE, axial long TE T2 HASTE, axial diffusion-weighted imaging, axial fat-sat T1 FLASH, and pre-contrast, multiphase dynamic post-contrast and 20 min post-contrast (hepatocyte phase) axial fat-sat T1 3D VIBE. Imaging was performed before and after administration IV Eovist. 20 ml of IV contrast was administered. Comparison: MRI with Gadavist dated 01/18/2016. Findings: Lower chest: Normal Liver: Liver is cirrhotic and measures 17.6 cm craniocaudal. There is a stable 0.9 cm lesion in segment 7 shows mild hyperintensity versus background liver on in phase T1, signal loss on opposed phase T1, near isointensity on fat-sat T2, does not exclude iron on T2* gradient echo, and appears hypointense versus background liver on all postcontrast phases. 7 mm early enhancing lesion at dome in anterior segment 4A shows washout to isointensity, unchanged. 6 mm peripheral wedge-shaped area of transient early enhancement in segment 5. Patent portal veins and hepatic veins. Small recanalized umbilical vein. Small distal esophageal and perigastric varices. Bile ducts: Not dilated. Gallbladder: Multiple small gallstones. No gallbladder wall thickening. Pancreas: There are a few tiny cysts in the uncinate process, unchanged. Spleen: Mildly enlarged at 13 cm. Adrenal glands: Normal Kidneys: Tiny right renal cyst. 2 left renal arteries. Ureters: Normal Aorta: Normal. Left gastric artery arises directly from aorta. Retroperitoneum: No lymphadenopathy. Peritoneum: Trace ascites. Mesentery: Normal Stomach: Not distended. Bowel: Not distended. Abdominal wall: Normal. Bones: Hemangioma on right side of L2. IMPRESSION Impression: 1. Cirrhotic liver. 2. Stable subcentimeter hypoenhancing fat-containing nodule in hepatic segment 7; differential diagnosis includes HCC, fat-containing regenerative nodule and (less likely) hepatic adenoma (LR3/4). 3. Small early enhancing lesion with washout to isointensity in segment 4A (LR 3). 4. Small Tranter perfusion abnormality in peripheral segment 5. 5. Cholelithiasis. CREATININE, POINT OF CARE (08/25/2016 2:15 PM) Component Value Range POC CREATININE 0.9 0.5-1.0 mg/dL POC CALCULATED GFR >60 60 mL/min/1.73 m2 Specimen Blood
[2016-10-19 08:13] LABS: Albumin * 3.2 gm/dl (3.4-5.0); Anion Gap 10.8 mmol/L (6.8-13.8); BUN/Creatinine Ratio 13.9 (9.0-21.6); Bilirubin, Total 0.6 mg/dL (0.0-1.1); Calcium * 8.7 mg/dL (7.9-10.9); Carbon Dioxide 27.9 mmol/L (24-32.6); Potassium 3.7 mmol/L (3.4-4.6); Total Protein 7.9 gm/dL (6.2-8.2)
[2016-10-19] MEDS ORDERED: ORPHENADRINE CITRATE 30 MG/ML VIAL ONE (09:35)
[2016-10-19] MEDS ORDERED: ORPHENADRINE CITRATE 30 MG/ML VIAL IV ONE (09:39)
[2016-10-19 09:45] LABS: Urine Appearance Cloudy; Urine Bacteria 3+; Urine Bilirubin Negative (NEGATIVE); Urine Blood 250 /ul (NEGATIVE); Urine Color Dark Yellow; Urine Ketone Negative (NEGATIVE); Urine Nitrite Positive (NEGATIVE); Urine Protein 15 mg/dL (NEGATIVE); Urine RBC >50 /hpf (0-5); Urine Urobilinogen Normal (NORMAL); Urine WBC 25-50 /hpf (0-5); Urine pH 7.5 pH (5.0-7.0)
[2016-10-19] MEDS ORDERED: METOCLOPRAMIDE HCL 5 MG/ML VIAL ONE (10:51)
[2016-10-19] MEDS ORDERED: METOCLOPRAMIDE HCL 5 MG/ML VIAL IV ONE (10:52)
[2016-10-19 11:50] VITALS: BP 126/55
== END 2016-10-19 11:57 | disposition home or self-care (01) ==
LOC: ER 07:18
DX: R11.2 Nausea with vomiting, unspecified (principal); I25.2 Old myocardial infarction; E11.9 Type 2 diabetes mellitus without complications

== ENCOUNTER 2016-10-20 10:18 | Inpatient (IN) | payer MEDICARE, BC ==
--- OUTSIDE RECORDS SUMMARY | 2016-10-20 10:25 | XMS REPORT | Continuity of Care Document ---
:1950 Author Organization [facility] ([facility]) Address [address] [place] [address] Phone [phone] Care Team Providers Name Role Phone Kavya Jacinto Primary Care Provider [phone] Source Comments This disclosure is being made pursuant to the Care Everywhere program, applicable federal and state laws, and may not contain all informaitonavailable regarding this patient.[facility] ([facility]) Active Allergies and Adverse Reactions Allergen Noted [...] pantoprazole 40 mg Take 1 tablet (40 30 tablet 1 Active EC tablet mg total) by mouth 7 daily. pantoprazole 40 mg Take 1 tablet (40 45 tablet 0 10/19/19 Discontinued EC tablet mg total) by mouth 7 17 2 times daily. pantoprazole 40 mg Take 1 tablet (40 60 tablet 1 10/20/19 Discontinued EC tablet mg total) by mouth 7 17 2 times daily. Active Problems Problem Noted Date Alcoholic cirrhosis of liver without ascites 12/15/2015 Overview: With varices Diabetes mellitus type 2, controlled 09/08/2015 Diabetic neuropathy 09/08/2015 Unsteady gait 09/08/2015 Frequent falls 09/08/2015 Essential hypertension 09/08/2015 Depression 09/08/2015 GERD (gastroesophageal reflux disease) 09/08/2015 Coronary artery disease involving [place] coronary artery without angina 2015 pectoris Vision disturbance 09/08/2015 Stress incontinence 09/08/2015 Resolved Problems Problem Noted Date Resolved Date Gastrointestinal hemorrhage 09/08/2016 09/09/2016 Most Recent Encounters Date Type Specialty Providers Description 10/19/2016 Telephone Med GI/Hepatology Jayda Tran Chief Comp: Need Prior Authorization 10/18/2016 Refill Med GI/Hepatology Jayda Tran Dx: Alcoholic cirrhosis of liver without ascites (Primary Dx) 10/18/2016 Refill Med GI/Hepatology Neo Gary Dx: Alcoholic cirrhosis RN of liver without ascites (Primary Dx) 10/07/2016 Telephone Med GI/Hepatology Radha Ellison RN 09/13/2016 Nurse Triage [facility] Jessie [place], Chief Comp: 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 Follow-up Call 09/08/2016 - Hospital [facility] Jb Adamson, Dx: Gastrointestinal 09/10/2016 Encounter Inpatient - Adult MD hemorrhage with Ball, Prosper hematemesis (Primary MD Nikia Dx) Tawnya Gallego MD Iyer, Priyanka, MD 09/05/2016 Refill Med GI/Hepatology Kevin Dx: Liver cirrhosis MD [...] Taken Blood Pressure 116/54 09/10/2016 11:11 AM NEWS ASSIGNMENT EDITOR Pulse 81 09/10/2016 11:11 AM NEWS ASSIGNMENT EDITOR Temperature 36.8 C (98.2 F) 09/10/2016 11:11 AM NEWS ASSIGNMENT EDITOR Respiratory Rate 16 09/10/2016 11:11 AM NEWS ASSIGNMENT EDITOR Height 1.702 m (5' 7") 09/08/2016 11:45 PM NEWS ASSIGNMENT EDITOR Weight 83.7 kg (184 lb 8.4 oz) 09/08/2016 11:45 PM NEWS ASSIGNMENT EDITOR Body Mass Index 28.89 09/08/2016 11:45 PM NEWS ASSIGNMENT EDITOR Oxygen Saturation 97% 09/10/2016 11:11 AM NEWS ASSIGNMENT EDITOR Plan of Care Date Type Specialty Providers Description 11/14/2016 Appointment Radiology Subj: Appointment Scheduled 03/23/2017 Appointment Med GI/Hepatology Adryan Brown MD Subj: Appointment [address] [place] [address] [phone] (Fax) Health Maintenance Due Date Last Done [...] Whole Blood ENDOSCOPY UPPER (09/09/2016 12:30 PM) Aniket Holliday MD 09/09/2016 12:30 PM ENDOSCOPY UPPER Esophagogastroduodenoscopy [...] admission Monae Brown MD Gastroenterology/Hepatology Fellow Pager#: [phone] Teaching Statement: Dr. Manjit Rodriguez present for the entire procedure. Aniket Mathias MD Clinical Manager [place] Department of [facility] Medicine Division of Gastroenterology and Hepatology [address] [place] [address] Fax [email or web address] DIFFERENTIAL (09/09/2016 8:53 AM)Only the most recent of2 resultswithin the time period is included. Component Value Range % Neutrophils-Auto Diff 60.5 % Neutrophils-Auto Diff 3190 [id number] /MM3 % Lymphocytes-Auto Diff 26.4 % Lymphocytes-Auto Diff 6706 198-4813 /MM3 % Monocytes-Auto Diff 8.0 % Monocytes-Auto [...] Abnormality Status --------- ------ CBC (COMPLETE BLOOD COUNT)[[id number]] AbnormalFinal result DIFFERENTIAL[[id number]] Final result Please view results for these [...] Cloudy(A) Clear pH, Urine 7.0 <9.0 Spec [place], Urine 1.015 1.000-1.030 Glucose, Urine Negative Negative [...] Abnormality Status --------- ------ URINALYSIS WITH REFLEX C...[[id number]]AbnormalFinal result MICROSCOPIC URINALYSIS[[id number]] Abnormal Final result URINE CULTURE, REFLEXED[[id number]]Abnormal Final result Please view results for these [...] were determined by the [facility].It has not been cleared orApproved by [...] For inpatient phlebotomy redraws, please contact pager #[phone] between the hours of 05:00 to 13:00. [...] m2 Specimen Blood MRI ABDOMEN W/WO CONTRAST ([id number]) (08/25/2016 2:58 PM) Impressions Impression: 1. Cirrhotic liver. 2. Stable subcentimeter hypoenhancing fat-containing nodule in hepatic segment 7; differential diagnosis includes HCC, fat-containing regenerative nodule and (less likely) hepatic adenoma (LR3/4). 3. Small early enhancing lesion with washout to isointensity in segment 4A (LR 3). 4. Small Tranter perfusion abnormality in peripheral segment 5. 5. Cholelithiasis. Narrative Procedure: MRI ABDOMEN W/WO CONTRAST ([id number]) Clinical Indication: Cirrhosis, F/U LR3-4 lesions in January/2016. Technique: MRI of the abdomen with attention to the liver was performed on a 1.5 Ashley scanner using a surface multicoil. Imaging consisted of 3 plane TrueFISP localizer, coronal HASTE T2 localizer, axial T1 FLASH in- and [id number], axial T2 fat-sat BRICE, axial T2* GRE, [...] on right side of L2. Procedure Note Zev, Incoming Imaging Results - Clemencia Aug 25, 2016 4:48 PM NEWS ASSIGNMENT EDITOR Procedure: MRI ABDOMEN W/WO CONTRAST ([id number]) Clinical Indication: Cirrhosis, F/U LR3-4 lesions in January/2016. Technique: MRI of the abdomen with attention to the liver was performed on a 1.5 Ashley scanner using a surface multicoil. Imaging consisted of 3 plane TrueFISP localizer, coronal HASTE T2 localizer, axial T1 FLASH in- and [id number], axial T2 fat-sat BRICE, axial T2* GRE, [...]
[2016-10-20] MEDS ORDERED: NORMAL SALINE 1,000 ML IV PRN (11:08)
[2016-10-20] MEDS: PANTOPRAZOLE SODIUM 40 MG in NORMAL SALINE 100 ML IV SCH (11:41)
[2016-10-20] MEDS: ACETAMINOPHEN 500 MG TABLET PO SCH ×3 (11:41→22:56)
[2016-10-20 11:54] LABS: Hematocrit 27.8 % (37.0-47.0); Hemoglobin 8.7 gm/dL (12.5-16.0); Mean Cell Volume 79.2 fl (78-100); Mean Corpuscular Hemoglobin 24.8 pg (27-31); Mean Corpuscular Hgb Conc 31.3 g/dl (32-36); Mean Platelet Volume 10.6 fl (6.0-9.5); Neutrophil # 11.6 K/mm3 (1.3-6.0); Neutrophil % 82.3 % (42-75.0); Platelet Count 140 K/mm3 (150-450); Red Blood Count 3.51 M/mm3 (4.2-5.4); Red Cell Distribution Width 17.9 % (11.5-14.0); White Blood Count 14.1 K/mm3 (4.0-10.5)
[2016-10-20 11:55] LABS: Albumin * 2.7 gm/dl (3.4-5.0); Anion Gap 10.6 mmol/L (6.8-13.8); BUN/Creatinine Ratio 15.6 (9.0-21.6); Bilirubin, Total 1.2 mg/dL (0.0-1.1); Calcium * 8.3 mg/dL (7.9-10.9); Carbon Dioxide 27.8 mmol/L (24-32.6); Potassium 3.4 mmol/L (3.4-4.6); Total Protein 7.1 gm/dL (6.2-8.2)
[2016-10-20] MEDS ORDERED: traMADol HCL 50 MG TABLET PO PRN (13:14)
[2016-10-20] MEDS ORDERED: DEXTROSE 5%-0.5 NORMAL SALINE 1,000 ML IV PRN (17:01)
[2016-10-20] MEDS: CIPROFLOXACIN LACTATE/D5W 400 MG in Premix Bag 1 BAG IV SCH (17:14)
[2016-10-20] MEDS: metroNIDAZOLE/SODIUM CHLORIDE 500 MG/100 ML BAG IV SCH (18:54)
[2016-10-20 21:02] LABS: Urine Bilirubin Negative (NEGATIVE); Urine Blood 50 /ul (NEGATIVE); Urine Ketone Negative (NEGATIVE); Urine Protein 30 mg/dL (NEGATIVE); Urine Specific Gravity >=1.030 SP.GR. (1.005-1.010); Urine Urobilinogen Normal (NORMAL); Urine pH 5.5 pH (5.0-7.0)
[2016-10-20 21:14] LABS: Urine Appearance Cloudy; Urine Bacteria 2+; Urine Color Yellow; Urine Nitrite Positive (NEGATIVE); Urine RBC 0-5 /hpf (0-5); Urine WBC >50 /hpf (0-5)
[2016-10-20] MEDS: NORMAL SALINE 1,000 ML IV PRN (21:15)
[2016-10-21] MEDS: metroNIDAZOLE/SODIUM CHLORIDE 500 MG/100 ML BAG IV SCH ×3 (00:39→16:49)
[2016-10-21] MEDS ORDERED: ACETAMINOPHEN 650 MG SUPP.RECT RC ONE (02:25)
[2016-10-21] MEDS: CIPROFLOXACIN LACTATE/D5W 400 MG in Premix Bag 1 BAG IV SCH ×2 (05:03→18:00)
[2016-10-21] MEDS: ACETAMINOPHEN 500 MG TABLET PO SCH ×4 (05:05→22:21)
[2016-10-21 05:55] LABS: Hematocrit 27.4 % (37.0-47.0); Hemoglobin 8.4 gm/dL (12.5-16.0); Mean Cell Volume 79.4 fl (78-100); Mean Corpuscular Hemoglobin 24.3 pg (27-31); Mean Corpuscular Hgb Conc 30.7 g/dl (32-36); Mean Platelet Volume 11.4 fl (6.0-9.5); Neutrophil # 11.8 K/mm3 (1.3-6.0); Neutrophil % 79.2 % (42-75.0); Platelet Count 136 K/mm3 (150-450); Red Blood Count 3.45 M/mm3 (4.2-5.4); Red Cell Distribution Width 18.6 % (11.5-14.0); White Blood Count 14.9 K/mm3 (4.0-10.5)
[2016-10-21 06:09] LABS: Total Cells Counted 100
[2016-10-21 06:21] LABS: Atypical (Reactive) Lymph 1 % (0-2); Eosinophil 1 % (0-3); Lymphocyte 2 % (20-51); Monocyte 7 % (0-9); Neutrophil 89 % (42-75); Neutrophil # 13.3 K/mm3 (1.3-6.0); Platelet Estimate Normal (NORMAL); RBC Morphology Normal (NORMAL)
[2016-10-21] MEDS: INSULIN LISPRO 100 UNITS/ML VIAL SC SCH ×3 (07:19→16:52)
--- NOTE | 2016-10-21 08:11 | PN ---
Progess Note - Interim Narrative: 10/21/16 08:09 US showed multiple GS with tickened GB wall- acute vs chronic cholecystitis. Spiked a fever and WBC went up , Cipro/flagyl started yesterday. HIDA scan scheduled for today. Not sure if WBC /Fever due to UTI or GB. await HIDA scan before surgery consult. 10/21/16 10:04 10/21/16 11:39 HIDA scan ow EF 5%, positive kinevac. Consult surgery. keep patient NPO.
[2016-10-21] MEDS ORDERED: SINCALIDE IJ ONE (09:30)
[2016-10-21] MEDS ORDERED: NORMAL SALINE IJ ONE (09:30)
[2016-10-21] MEDS: ONDANSETRON HCL/PF 2 MG/ML VIAL IV PRN (10:34)
[2016-10-21] MEDS: PANTOPRAZOLE SODIUM 40 MG in NORMAL SALINE 100 ML IV SCH (12:35)
--- NOTE | 2016-10-21 12:46 | PN ---
Subjective - Date and Time Seen Date: 10/21/16 Time: 12:45 Subjective Narrative: Patient is still with RUQ pain. WBC is 14.9. Tmax is 39.4. Objective - Review of Systems Generalized/Overall Review: Reports: Fever. Denies: Chills EENTM: Reports: No Symptoms Reported Respiratory: Denies: Cough, Shortness of Breath Cardiac: Denies: Chest Pain, Edema, Palpitations Abdominal: Reports: Nausea, Abdominal Pain. Denies: Vomiting Genitourinary Symptoms: Denies: Urgency, Frequency - Vitals Vitals: Last Vital Signs Temp 37.6 C H 10/21/16 11:09 Pulse 74 10/21/16 11:09 Resp 16 10/21/16 11:09 BP 151/61 10/21/16 11:09 Pulse Ox 96 10/21/16 11:09 - Abnormal Lab Findings Abnormal Lab Findings: Abnormal Lab Results 10/20/16 10/21/16 Range/Units 20:53 05:00 WBC 14.9 H (4.0-10.5) K/mm3 RBC 3.45 L (4.2-5.4) M/mm3 Hgb 8.4 L (12.5-16.0) gm/dL Hct 27.4 L (37.0-47.0) % MCH 24.3 L (27-31) pg MCHC 30.7 L (32-36) g/dl RDW 18.6 H (11.5-14.0) % Plt Count 136 L (150-450) K/mm3 MPV 11.4 H (6.0-9.5) fl Immature Gran % (Auto) 0.70 H (0.001-0.429) % Immature Gran # (Auto) 0.10 H (0.000-0.0310) K/mm3 Neutrophils % 79.2 H (42-75.0) % Neutrophils % (Manual) 89 H (42-75) % Lymphocytes % 7.7 L (20-51) % Lymphocytes % (Manual) 2 L (20-51) % Monocytes % 11.7 H (0.0-9) % Neutrophils # 11.8 H (1.3-6.0) K/mm3 Neutrophils # (Manual) 13.3 H (1.3-6.0) K/mm3 Lymphocytes # 1.2 L (1.5-3.5) k/mm3 Lymphocytes # (Manual) 0.3 L (1.5-3.5) k/mm3 Monocytes # 1.7 H (0.0-1.0) k/mm3 Urine Protein 30 H (NEGATIVE) mg/dL Urine Blood 50 H (NEGATIVE) /ul Urine Nitrate Positive H (NEGATIVE) Ur Leukocyte Esterase 75 H (NEGATIVE) /ul Urine WBC >50 H (0-5) /hpf Urine Bacteria 2+ H (NONE) - Exam Constitutional: Present: Alert, Oriented x3, Cooperative ENT Exam: Present: hearing grossly normal Neck: Present: supple Breasts: Present: Exam deferred Respiratory: Present: normal breath sounds, No wheezing Cardiovascular/Chest: Present: regular rate, rhythm, no JVD, no murmur Abdomen: Present: soft, nondistended, tender - RUQ, hypoactive Extremity: Present: no pedal edema, no calf tenderness Assessment/Plan - Problems/Diagnosis (1) Leukocytosis Problem: Acute Narrative: infectious likely acute cholecystits vs UTI. on Cipro /flagyl. (2) Nausea & vomiting Problem: Acute Qualifiers: Vomiting type: unspecified Narrative: with RUQ pain likely acute cholecystits. surgery on consult. (3) Urinary tract infection Problem: Acute Qualifiers: Urinary tract infection type: acute cystitis Hematuria presence: with hematuria Qualified Code(s): N30.01 - Acute cystitis with hematuria Narrative: on Cipro. C & S on 10/19/16 in the ER - [facility] on admission pending. (4) Orthostatic hypotension Problem: Resolved Narrative: (5) Liver cirrhosis, alcoholic Problem: Acute (6) CAD (coronary artery disease) Problem: Chronic Qualifiers: Coronary Disease-Associated Artery/Lesion type: unspecified vessel or lesion type [place] vs. transplanted heart: [place] heart Associated angina: without angina Qualified Code(s): I25.10 - Atherosclerotic heart disease of [place] coronary artery without angina pectoris (7) Diabetes mellitus type 2 in obese Problem: Chronic (8) HTN (hypertension) Problem: Chronic Qualifiers: Hypertension type: essential hypertension Qualified Code(s): I10 - Essential (primary) hypertension (9) Anemia Problem: Acute Qualifiers: Anemia type: iron deficiency Iron deficiency anemia type: unspecified iron deficiency Qualified Code(s): D50.9 - Iron deficiency anemia, unspecified Narrative: chronic. will type and x-match 2 units.. transfuse .
[2016-10-21] MEDS: NORMAL SALINE 1,000 ML IV PRN (13:08)
--- NOTE | 2016-10-21 14:02 | CONS ---
HPI - General Date of Service: 10/21/16 Narrative: Asked to see this patient admitted through the ER with RUQ pain. She has had intermittant RUQ pain for many years. An US yesterday showed multiple gallstones, a 5mm wall, negative sonographic joshi's sign, and no pericholecystic fluid. Subsequent HIDA showed normal gallbladder filling but only a tiny ejection fraction with a reproduction of her symptoms with CCK. Since admission her white count continues to climb and she is having fevers. She may have urosepsis as a confounding factor. Source: patient, old records Exam Limitations: no limitations - History of Present Illness Allergies/Adverse Reactions: Allergies lisinopril Allergy (Verified 10/20/16 10:30) lactose Adverse Reaction (Mild, Verified 10/20/16 10:30) GAS latex Adverse Reaction (Mild, Verified 10/20/16 10:30) RASH Home Medications: Home Medications Medication Instructions Recorded Last Taken Insulin Aspart [Novolog Flexpen] 13 unit SQ AC 09/18/13 Unknown Insulin Glargine,Hum.rec.anlog 30 unit SQ BID 09/18/13 Unknown [Lantus] Cholecalciferol (Vitamin D3) 1,500 mg PO DAILY 12/01/14 Unknown [Vitamin D3] Aspirin [Aspirin EC] 81 mg PO DAILY 04/20/16 Unknown Nadolol [Corgard] 40 mg PO HS 09/08/16 Unknown Acetaminophen [Tylenol] 1 - 2 tab PO Q6H 10/20/16 Unknown Cholecalciferol (Vitamin D3) 2,000 unit PO DAILY 10/20/16 Unknown [Vitamin D3] Duloxetine HCl [Cymbalta] 30 mg PO DAILY 10/20/16 Unknown Furosemide [Lasix] 20 mg PO DAILY 10/20/16 Unknown Pantoprazole Sodium [Protonix] 40 mg PO DAILY 10/20/16 Unknown Pramipexole Di-HCl [Mirapex] 0.25 mg PO HS 10/20/16 Unknown Pravastatin Sodium [Pravachol] 20 mg PO DAILY 10/20/16 Unknown Vitamin E 1,000 unit PO DAILY 10/20/16 Unknown - Patient's Past Medical History Patient History - Medical: Anemia, Anesthesia Reaction, Arthritis, Diabetes Type 2, Depression, GERD, Headache, Liver Disease, UTI'S Patient History - Cardiac/Respiratory: Coronary Heart Disease, Hypertension, Myocardial Infarction Patient History - Cancer: No Hx of Cancer Patient History - Surgical Procedures: Cataracts, Colonoscopy, Cardiac stent, EGD, Hysterectomy, Other Patient History - Other: None - Family History Mother Family History - Medical: Family History - Cardiac/Respiratory: No pertinent hx Family History - Cancer: Pancreatic Father Family History - Medical: , Diabetes Type 2 Family History - Cardiac/Respiratory: CHF Brother Family History - Medical: , Diabetes Type 2 Sister Family History - Medical: - Social History Living Situations: home Abuse History: No History of abuse Psych History: Hx of Depression Smoking Status: Never smoker Have you smoked in the past 12 months: No Do you dip or chew tobacco: No Patient requests Smoking Cessation Consult: No Initiate information on Smoking Cessation: No Alcohol Use: none Drug Use: none - Immunizations Immunizations Up to Date: Yes Hx Pneumococcal Vaccination: Yes History of Influenza Vaccine: Yes Procedures ARTERIAL BLD GAS MEASURE (12/10/14) ENDOSC POLYPECTOMY OF LG INTEST (09/30/13) ESOPHAGOGASTRODUODENOSCOPY [EGD] W/CLOSED BIOPSY (02/11/15) EXCISION OF STOMACH, ENDO, DIAGN (11/04/15) FLUOROSCOPY OF RIGHT SHOULDER (02/23/16) IMMOBILIZATION OF LEFT LOWER LEG USING SPLINT (05/29/15) INTERPHALANGEAL FUSION (12/10/14) REPOSITION RIGHT HUMERAL HEAD WITH INT FIX, OPEN APPROACH (04/20/16) Medications - Medications Current Medications: Current Medications Acetaminophen (Tylenol) 500 mg PO Q6H SHEREEN Stop: 11/19/16 11:16 Last Admin: 10/21/16 11:13 Dose: 500 mg Pantoprazole Sodium 40 mg/ (Sodium Chloride) 100 mls @ 400 mls/hr IV Q24H SHEREEN Stop: 11/19/16 11:16 Last Admin: 10/21/16 12:35 Dose: 400 mls/hr Ciprofloxacin/Dextrose 400 mg/ (Premix Bag) 200 mls @ 200 mls/hr IV Q12H SHEREEN PRN Reason: Protocol Stop: 11/19/16 17:01 Last Admin: 10/21/16 05:03 Dose: 200 mls/hr Metronidazole (Flagyl) 500 mg in 100 mls @ 100 mls/hr IV Q8H SHEREEN Stop: 11/19/16 17:01 Last Admin: 03/17/17 10:36 Dose: 100 mls/hr Sodium Chloride (Sodium Chloride 0.9%) 1,000 mls @ 100 mls/hr IV .Q10H PRN PRN Reason: HYDRATION Stop: 11/19/16 21:10 Last Admin: 10/21/16 13:08 Dose: 100 mls/hr Sincalide 2 mcg/ Sodium (Chloride) 8 mls @ 0.01 mls/hr IJ ONCE ONE Stop: 11/23/16 17:29 Last Admin: 10/21/16 10:43 Dose: Not Given Insulin Human Lispro (Humalog) 0 - 21 units SC ACINS SHEREEN PRN Reason: Protocol Stop: 11/20/16 07:01 Last Admin: 10/21/16 11:54 Dose: Not Given Ondansetron HCl (Zofran) 4 mg IV Q6H PRN PRN Reason: Nausea And Vomiting Stop: 11/19/16 11:11 Last Admin: 10/21/16 10:34 Dose: 4 mg Tramadol HCl (Ultram) 50 mg PO Q6H PRN PRN Reason: Pain Stop: 11/19/16 13:15 Last Admin: 10/20/16 13:43 Dose: 50 mg Review of Systems - Review of Systems Abdominal: Present: Abdominal Pain Misc: All systems neg except as marked Physical Examination - Exam Vital Signs: Vital Signs - Last Taken Temp 37.6 C H 10/21/16 11:09 Pulse 74 10/21/16 11:09 Resp 16 10/21/16 11:09 BP 151/61 10/21/16 11:09 Pulse Ox 96 10/21/16 11:09 O2 Oxygen Delivery Method Room Air Constitutional: Present: Alert, Oriented x3, Cooperative, Mild distress ENT Exam: Present: normal ENT inspection Neck: Present: full range of motion, supple, normal inspection Respiratory: Present: no respiratory distress Abdomen: Present: soft, nondistended, no hepatospenomegaly, positive Joshi sign , other - small upper midline scar with hernia.. Absent: hernia /Rectal: Present: Exam deferred Extremity: Present: normal inspection Skin Exam: Present: warm/dry Neurologic: Present: no motor/sensory deficits - Results and Findings: Narrative: A: Acute Cholecystitis P: While she had a negative joshi's yesterday on sonogram, she certainly has an unequivocal one today on my physical exam. I recommend early cholecystectomy and would like to get a little more antibiotic in her and take her to the OR tomorrow morning. The options, risks, and benefits of the procedure have been discussed fully with the patient. She seems to understand, asks appropriate questions, and desires to proceed. Lab/Microbiology results last 24 hrs: Abnormal/Pending Laboratory Last 24 HRS 10/21/16 10/20/16 05:00 20:53 WBC 14.9 H RBC 3.45 L Hgb 8.4 L Hct 27.4 L MCH 24.3 L MCHC 30.7 L RDW 18.6 H Plt Count 136 L MPV 11.4 H Immature Gran % (Auto) 0.70 H Immature Gran # (Auto) 0.10 H Neutrophils % 79.2 H Neutrophils % (Manual) 89 H Lymphocytes % 7.7 L Lymphocytes % (Manual) 2 L Monocytes % 11.7 H Neutrophils # 11.8 H Neutrophils # (Manual) 13.3 H Lymphocytes # 1.2 L Lymphocytes # (Manual) 0.3 L Monocytes # 1.7 H Urine Protein 30 H Urine Blood 50 H Urine Nitrate Positive H Ur Leukocyte Esterase 75 H Urine WBC >50 H Urine Bacteria 2+ H - Assessments/Findings (1) Acute cholecystitis with chronic cholecystitis Problem: Acute
[2016-10-21 14:49] LABS: INR 1.15 INR (0.90-1.10)
[2016-10-21] MEDS: PIPERACILLIN SODIUM/TAZOBACTAM 3.375 GM in DEXTROSE 5 % IN WATER 100 ML IV SCH ×2 (22:47)
[2016-10-22] MEDS: NORMAL SALINE 1,000 ML IV PRN ×2 (00:45→13:18)
[2016-10-22] MEDS: ONDANSETRON HCL/PF 2 MG/ML VIAL IV PRN (01:06)
[2016-10-22] MEDS: metroNIDAZOLE/SODIUM CHLORIDE 500 MG/100 ML BAG IV SCH (02:45)
[2016-10-22] MEDS: CIPROFLOXACIN LACTATE/D5W 400 MG in Premix Bag 1 BAG IV SCH (03:59)
[2016-10-22] MEDS: PIPERACILLIN SODIUM/TAZOBACTAM 3.375 GM in DEXTROSE 5 % IN WATER 100 ML IV SCH ×2 (05:01)
[2016-10-22] MEDS ORDERED: diphenhydrAMINE HCL 50 MG/ML VIAL IV ONE ×2 (05:09→07:10)
[2016-10-22] MEDS ORDERED: FUROSEMIDE 10 MG/ML VIAL IV ONE (05:09)
[2016-10-22] MEDS: ACETAMINOPHEN 500 MG TABLET PO SCH ×3 (05:15→12:02)
--- NOTE | 2016-10-22 05:24 | PN ---
Subjective - Date and Time Seen Date: 10/22/16 Time: 04:54 Subjective Narrative: patient seen today AOX3 no acute distress. Temp gradually improved overnight with tylenol. She denies cough, chest pain, palpitation and reported nausea, vomiting and abdominal pain. Pt anticipating lap flo possible open later today. Objective - Review of Systems Generalized/Overall Review: Reports: Fever, Fatigue EENTM: Reports: No Symptoms Reported Respiratory: Reports: No Symptoms Reported Cardiac: Reports: No Symptoms Reported Abdominal: Reports: Nausea, Vomiting, Abdominal Pain Genitourinary Symptoms: Reports: No Symptoms Reported Musculoskeletal Complaints: Reports: No Symptoms Reported Neurological: Reports: No Symptoms Reported Skin: Reports: No Symptoms Reported Endocrine: Reports: No Symptoms Reported - Vitals Vitals: Last Vital Signs Temp 37.5 C 10/22/16 03:00 Pulse 81 10/22/16 03:00 Resp 16 10/22/16 03:00 BP 151/63 10/22/16 03:00 Pulse Ox 94 10/22/16 03:00 - Abnormal Lab Findings Abnormal Lab Findings: Abnormal Lab Results 10/21/16 10/21/16 Range/Units 05:00 14:15 WBC 14.9 H (4.0-10.5) K/mm3 RBC 3.45 L (4.2-5.4) M/mm3 Hgb 8.4 L (12.5-16.0) gm/dL Hct 27.4 L (37.0-47.0) % MCH 24.3 L (27-31) pg MCHC 30.7 L (32-36) g/dl RDW 18.6 H (11.5-14.0) % Plt Count 136 L (150-450) K/mm3 MPV 11.4 H (6.0-9.5) fl Immature Gran % (Auto) 0.70 H (0.001-0.429) % Immature Gran # (Auto) 0.10 H (0.000-0.0310) K/mm3 Neutrophils % 79.2 H (42-75.0) % Neutrophils % (Manual) 89 H (42-75) % Lymphocytes % 7.7 L (20-51) % Lymphocytes % (Manual) 2 L (20-51) % Monocytes % 11.7 H (0.0-9) % Neutrophils # 11.8 H (1.3-6.0) K/mm3 Neutrophils # (Manual) 13.3 H (1.3-6.0) K/mm3 Lymphocytes # 1.2 L (1.5-3.5) k/mm3 Lymphocytes # (Manual) 0.3 L (1.5-3.5) k/mm3 Monocytes # 1.7 H (0.0-1.0) k/mm3 PT 12.0 H (9.4-11.4) Seconds INR (Anticoag Therapy) 1.15 H (0.90-1.10) INR - Exam Constitutional: Present: Alert, Oriented x3, Cooperative, Well developed, No distress ENT Exam: Present: normal ENT inspection, moist mucous membranes Neck: Present: full range of motion Breasts: Present: Exam deferred Respiratory: Present: chest non-tender, lungs clear, normal breath sounds, no respiratory distress Cardiovascular/Chest: Present: normal peripheral pulses, regular rate, rhythm, no chest tenderness, no edema Abdomen: Present: Normal bowel sounds, soft, nondistended /Rectal: Present: Exam deferred Extremity: Present: normal range of motion, non-tender, normal inspection, no pedal edema, no calf tenderness Skin Exam: Present: normal color, warm/dry, no cyanosis Neurologic: Present: oriented x 3 Appearance: Present: appropriate appearance Eye contact: Present: cooperative Thoughts: Present: normal thought pattern Assessment/Plan Plan Narrative: Acute cholecystitis 10/21/16 Preliminary blood cultures: gram + cocci in clusters.DC cipro and flagyl and start Zosyn Temp gradually improving overnight temp 36.7---->37.5 after zosyn added and use of Tylenol CBC and CMP in am pt is schedule for Lap cholecystectomy possible open CXR pending EKG- NSR VTE ppx SCD and ambulate Encourage use of I/S RCRI moderate risk and pt medically appropriate for planned procedure. Nausea and vomiting- likely due to cholecystitis IV antiemetics PRN Keep NPO Supportive care Anemia On adm hgb-8.7---->8.4 Type and screen, transfuse 1 UPRBC and hold 1 unit for OR Per PCP Pt has history esophageal varices and have + orthostatic vitals in office Pre-medicated with Tylenol and Benadryl before transfusion. May give Lasix 10mg x1 between transfusion Monitor H/H 1hr post transfusion Diabetes Accu-check AC+HS and PRN as indicated Continue with Low dose SSI UTI- seen on urinalysis Culture and sensitivity pending Continue with Zosyn Code Status: Full code VTE ppx:SCD and ambulate pt Anticipate discharge 2-3 days Time 45 minutes, previous records reviewed - Problems/Diagnosis (1) Acute cholecystitis with chronic cholecystitis Problem: Acute (2) Nausea & vomiting Problem: Acute Qualifiers: Vomiting type: unspecified (3) Urinary tract infection Problem: Acute Qualifiers: Urinary tract infection type: acute cystitis Hematuria presence: with hematuria Qualified Code(s): N30.01 - Acute cystitis with hematuria (4) Diabetes mellitus type 2 in obese Problem: Chronic (5) HTN (hypertension) Problem: Chronic Qualifiers: Hypertension type: essential hypertension Qualified Code(s): I10 - Essential (primary) hypertension
[2016-10-22 05:49] LABS: Hematocrit 27.7 % (37.0-47.0); Hemoglobin 8.6 gm/dL (12.5-16.0); Mean Cell Volume 79.4 fl (78-100); Mean Corpuscular Hemoglobin 24.6 pg (27-31); Mean Platelet Volume 10.9 fl (6.0-9.5); Neutrophil # 11.4 K/mm3 (1.3-6.0); Neutrophil % 83.5 % (42-75.0); Platelet Count 128 K/mm3 (150-450); Red Blood Count 3.49 M/mm3 (4.2-5.4); Red Cell Distribution Width 19.3 % (11.5-14.0); White Blood Count 13.6 K/mm3 (4.0-10.5)
[2016-10-22 06:06] LABS: Albumin * 2.2 gm/dl (3.4-5.0); Anion Gap 15.1 mmol/L (6.8-13.8); BUN/Creatinine Ratio 14.4 (9.0-21.6); Bilirubin, Total 1.5 mg/dL (0.0-1.1); Ca. Corrected For Albumin 9.1 mg/dL (8.4-10.2); Carbon Dioxide 21.7 mmol/L (24-32.6); Potassium 3.8 mmol/L (3.4-4.6); Total Protein 6.6 gm/dL (6.2-8.2)
[2016-10-22] MEDS: INSULIN LISPRO 100 UNITS/ML VIAL SC SCH ×2 (09:23→12:02)
[2016-10-22] MEDS ORDERED: VANCOMYCIN HCL 1.5 GM in DEXTROSE 5 % IN WATER 500 ML IV SCH ×2 (11:30)
[2016-10-22] MEDS: PANTOPRAZOLE SODIUM 40 MG in NORMAL SALINE 100 ML IV SCH (11:36)
[2016-10-22 11:45] LABS: Hematocrit 30.3 % (37.0-47.0); Hemoglobin 9.6 gm/dL (12.5-16.0)
[2016-10-22] MEDS ORDERED: FUROSEMIDE 10 MG/ML VIAL IV SCH (12:00)
--- NOTE | 2016-10-22 12:56 | PN ---
Subjective - Date and Time Seen Date: 10/22/16 Time: 12:50 Subjective Narrative: Pt is not having RUQ abdominal pain this morning. Objective - Vitals Vitals: Last Vital Signs Temp 36.9 C 10/22/16 11:05 Pulse 77 10/22/16 11:25 Resp 18 10/22/16 11:05 BP 127/56 10/22/16 11:25 Pulse Ox 94 10/22/16 11:05 - Abnormal Lab Findings Abnormal Lab Findings: Abnormal Lab Results 10/21/16 10/22/16 10/22/16 Range/Units 14:15 05:40 05:40 WBC 13.6 H (4.0-10.5) K/mm3 RBC 3.49 L (4.2-5.4) M/mm3 Hgb 8.6 L (12.5-16.0) gm/dL Hct 27.7 L (37.0-47.0) % MCH 24.6 L (27-31) pg MCHC 31.0 L (32-36) g/dl RDW 19.3 H (11.5-14.0) % Plt Count 128 L (150-450) K/mm3 MPV 10.9 H (6.0-9.5) fl Immature Gran % (Auto) 1.10 H (0.001-0.429) % Immature Gran # (Auto) 0.15 H (0.000-0.0310) K/mm3 Neutrophils % 83.5 H (42-75.0) % Lymphocytes % 4.8 L (20-51) % Monocytes % 10.3 H (0.0-9) % Neutrophils # 11.4 H (1.3-6.0) K/mm3 Lymphocytes # 0.7 L (1.5-3.5) k/mm3 Monocytes # 1.4 H (0.0-1.0) k/mm3 PT 12.0 H (9.4-11.4) Seconds INR (Anticoag Therapy) 1.15 H (0.90-1.10) INR Carbon Dioxide 21.7 L (24-32.6) mmol/L Anion Gap 15.1 H (6.8-13.8) mmol/L Est GFR (Non-Af Amer) 49 L (60-130) mL/min Random Glucose 314 H D (70-110) mg/dL Total Bilirubin 1.5 H (0.0-1.1) mg/dL Albumin 2.2 L (3.4-5.0) gm/dl Crossmatch 10/22/16 10/22/16 Range/Units 05:40 11:30 WBC (4.0-10.5) K/mm3 RBC (4.2-5.4) M/mm3 Hgb 9.6 L (12.5-16.0) gm/dL Hct 30.3 L (37.0-47.0) % MCH (27-31) pg MCHC (32-36) g/dl RDW (11.5-14.0) % Plt Count (150-450) K/mm3 MPV (6.0-9.5) fl Immature Gran % (Auto) (0.001-0.429) % Immature Gran # (Auto) (0.000-0.0310) K/mm3 Neutrophils % (42-75.0) % Lymphocytes % (20-51) % Monocytes % (0.0-9) % Neutrophils # (1.3-6.0) K/mm3 Lymphocytes # (1.5-3.5) k/mm3 Monocytes # (0.0-1.0) k/mm3 PT (9.4-11.4) Seconds INR (Anticoag Therapy) (0.90-1.10) INR Carbon Dioxide (24-32.6) mmol/L Anion Gap (6.8-13.8) mmol/L Est GFR (Non-Af Amer) (60-130) mL/min Random Glucose (70-110) mg/dL Total Bilirubin (0.0-1.1) mg/dL Albumin (3.4-5.0) gm/dl Crossmatch See Detail - Exam Constitutional: Present: Alert, Oriented x3, Cooperative, No distress Abdomen: Present: soft, nontender, negative Joshi sign Assessment/Plan Plan Narrative: A: Absence of Joshi's today brings into question acute cholecystitis P: Pt now has bacteremia with Gm Pos Cocci. Was switched to Zosyn overnight. Her sugar is >300. Bilirubin is climbing which may raise the spectre of cholangitis. Given her pre-existing liver disease and esophageal varices I am going to cancel her intended lap flo, given her clinical deterioration overnight, and recommend transfer to a higher level of care. Case D/W Dr. Lewis who is in agreement. - Problems/Diagnosis (1) Acute cholecystitis with chronic cholecystitis Problem: Acute
[2016-10-22 14:35] VITALS: BP 117/59
--- NOTE | 2016-10-24 11:06 | DS ---
Transfer Discharge Summary - Diagnosis(s)/Problems (1) Bacteremia due to Gram-positive bacteria Problem: Acute (2) Acute cholecystitis with chronic cholecystitis Problem: Acute (3) Anemia Problem: Acute - Course Description of Stay: Patient admitted from PCP, Dr. Jacinto' office on 10.20.2016 for dizziness, nausea and vomiting. Work-up revealed acute vs. chronic cholecystitis. The plan was to proceed with cholecystectomy on 10.22.2016 by general surgeon, Dr. Santos, here at [facility]. However, her blood culture result came back positive for gram positive cocci. Case discussed with Dr. Santos and the decision was made to transfer the patient to the [facility] for a higher level of care given her history of liver cirrhosis and esophageal varices. There was concern that the patient was possibly developing ascending cholangitis. Also, concern that patient may need an ERCP which we cannot do at our facility.C ase discussed with triage physician, Dr. Palacios, at the [facility] and patient accepted for transfer once a bed is available. Patient transferred via ground ambulance. Procedures Performed: none - Medications Medications: Active Medications Discontinued Medications Acetaminophen (Tylenol) 500 mg PO Q6H SHEREEN Stop: 11/19/16 11:16 Last Admin: 10/22/16 12:02 Dose: 500 mg Acetaminophen (Tylenol Suppository) 650 mg RC ONCE ONE Stop: 10/21/16 02:26 Last Admin: 10/21/16 03:03 Dose: 650 mg Diphenhydramine HCl (Benadryl) 25 mg IV ONCE ONE Stop: 10/22/16 05:10 Last Admin: 10/22/16 07:15 Dose: Not Given Diphenhydramine HCl (Benadryl) 25 mg IV ONCE ONE Stop: 10/22/16 07:11 Last Admin: 10/22/16 07:14 Dose: 25 mg Furosemide (Lasix) 10 mg IV ONCE ONE Stop: 10/22/16 05:10 Last Admin: 10/22/16 11:51 Dose: Not Given Furosemide (Lasix) 10 mg IV ONCE SHEREEN Stop: 10/22/16 23:59 Last Admin: 10/22/16 11:25 Dose: 10 mg Sodium Chloride (Sodium Chloride 0.9%) 1,000 mls @ 125 mls/hr IV .Q8H PRN PRN Reason: HYDRATION Stop: 11/19/16 11:09 Last Infusion: 10/20/16 17:04 Dose: 0 mls/hr Pantoprazole Sodium 40 mg/ (Sodium Chloride) 100 mls @ 400 mls/hr IV Q24H SHEREEN Stop: 11/19/16 11:16 Last Admin: 10/22/16 11:36 Dose: 400 mls/hr Ciprofloxacin/Dextrose 400 mg/ (Premix Bag) 200 mls @ 200 mls/hr IV Q12H SHEREEN PRN Reason: Protocol Stop: 11/19/16 17:01 Last Infusion: 10/22/16 05:00 Dose: Infused Metronidazole (Flagyl) 500 mg in 100 mls @ 100 mls/hr IV Q8H SHEREEN Stop: 11/19/16 17:01 Last Infusion: 10/22/16 04:17 Dose: Infused Dextrose/Sodium Chloride (Dextrose 5%-0.45%Ns) 1,000 mls @ 100 mls/hr IV .Q10H PRN PRN Reason: HYDRATION Stop: 11/19/16 17:02 Last Infusion: 10/20/16 21:15 Dose: 0 mls/hr Sodium Chloride (Sodium Chloride 0.9%) 1,000 mls @ 100 mls/hr IV .Q10H PRN PRN Reason: HYDRATION Stop: 11/19/16 21:10 Last Admin: 10/22/16 13:18 Dose: 100 mls/hr Sincalide 2 mcg/ Sodium (Chloride) 8 mls @ 0.01 mls/hr IJ ONCE ONE Stop: 11/23/16 17:29 Last Admin: 10/21/16 10:43 Dose: Not Given Piperacillin Sod/Tazobactam (Sod 3.375 gm/ Dextrose/Water) 100 mls @ 25 mls/hr IV Q8H SHEREEN PRN Reason: Protocol Stop: 11/20/16 22:01 Last Infusion: 10/22/16 09:01 Dose: Infused Vancomycin HCl 1.5 gm/ (Dextrose/Water) 500 mls @ 250 mls/hr IV Q24H SHEREEN PRN Reason: Protocol Stop: 11/21/16 11:31 Last Admin: 10/22/16 11:39 Dose: 250 mls/hr Insulin Human Lispro (Humalog) 0 - 21 units SC ACINS SHEREEN PRN Reason: Protocol Stop: 11/20/16 07:01 Last Admin: 10/22/16 12:02 Dose: 12 units Ondansetron HCl (Zofran) 4 mg IV Q6H PRN PRN Reason: Nausea And Vomiting Stop: 11/19/16 11:11 Last Admin: 10/22/16 01:06 Dose: 4 mg Tramadol HCl (Ultram) 50 mg PO Q6H PRN PRN Reason: Pain Stop: 11/19/16 13:15 Last Admin: 10/20/16 13:43 Dose: 50 mg - Disposition Disposition: [facility] Condition: Fair Discharge Date: 10/22/16
== END 2016-10-22 14:56 | disposition short-term general hospital (02) | DRG 445 ==
LOC: MS 10:18 → OBSVTOIN 10-22 08:38
PROVIDERS: ADMIT Internal Medicine; ATTEND Internal Medicine
DX: K80.12 Calculus of gallbladder with acute and chronic cholecystitis without obstruction (principal); I85.00 Esophageal varices without bleeding; Z53.09 Procedure and treatment not carried out because of other contraindication; B96.89 Other specified bacterial agents as the cause of diseases classified elsewhere; K70.30 Alcoholic cirrhosis of liver without ascites; F10.10 Alcohol abuse, uncomplicated; I10 Essential (primary) hypertension; I25.10 Atherosclerotic heart disease of native coronary artery without angina pectoris; Z95.5 Presence of coronary angioplasty implant and graft
CPT/HCPCS: 36415; 71020; 76700; 78227; 80053; 81001; 83605; 85007; 85014; 85018; 85025; 85610; 86850; 86900; 87040; 87077; 87086; 87186; 93005; A9537; G0378; G0379; P9016

== ENCOUNTER 2017-04-24 15:13 | Emergency (ER) | payer MEDICARE, BC ==
[2017-04-24 15:21] VITALS: BP 110/66
--- NOTE | 2017-04-24 16:36 | ERNOTE ---
Lower Extremity HPI - General Lower Extremities Pain: leg: left Time Seen by Provider: 04/24/17 15:29 Source: patient Exam Limitations: no limitations - Immun/Allergies/Home Medications Immunizations: IMMUNIZATION HX Immunizations Up to Date Yes History of Influenza Vaccine Yes Hx Pneumococcal Vaccination Yes Allergies/Adverse Reactions: Allergies Allergy/AdvReac Type Severity Reaction Status Date / Time lisinopril Allergy Verified 04/24/17 15:21 lactose AdvReac Mild GAS Verified 04/24/17 15:21 latex AdvReac Mild RASH Verified 04/24/17 15:21 Home Medications: HOME MEDICATIONS Insulin Aspart [Novolog Flexpen] 13 unit SQ AC 09/18/13 [Last Taken Unknown] Insulin Glargine,Hum.rec.anlog [Lantus] 30 unit SQ BID 09/18/13 [Last Taken Unknown] Cholecalciferol (Vitamin D3) [Vitamin D3] 1,500 mg PO DAILY 12/01/14 [Last Taken Unknown] Aspirin [Aspirin EC] 81 mg PO DAILY 04/20/16 [Last Taken Unknown] Nadolol [Corgard] 40 mg PO HS 09/08/16 [Last Taken Unknown] Dicyclomine HCl [Bentyl] 1 tab PO Q6H PRN #20 tablet 10/19/16 [Last Taken Unknown] Metoclopramide HCl [Reglan] 1 tab PO Q6H PRN #30 tab 10/19/16 [Last Taken Unknown] Acetaminophen [Tylenol] 1 - 2 tab PO Q6H 10/20/16 [Last Taken Unknown] Cholecalciferol (Vitamin D3) [Vitamin D3] 2,000 unit PO DAILY 10/20/16 [Last Taken Unknown] Duloxetine HCl [Cymbalta] 30 mg PO DAILY 10/20/16 [Last Taken Unknown] Furosemide [Lasix] 20 mg PO DAILY 10/20/16 [Last Taken Unknown] Pantoprazole Sodium [Protonix] 40 mg PO DAILY 10/20/16 [Last Taken Unknown] Pramipexole Di-HCl [Mirapex] 0.25 mg PO HS 10/20/16 [Last Taken Unknown] Pravastatin Sodium [Pravachol] 20 mg PO DAILY 10/20/16 [Last Taken Unknown] Vitamin E 1,000 unit PO DAILY 10/20/16 [Last Taken Unknown] traMADol HCL [Ultram] 50 mg PO QID PRN #20 tablet 04/24/17 [Last Taken Unknown] - History of Present Illness Narrative: Patient tripped on the sidewalk and landed on the left knee causing a small abrasion and mostly has pain in the left tibial saba area. The pain is moderate intensity and worse with walking. Occurred: just prior to arrival Location of Incident: other - Street Method of Injury: Reports: fell Reason for Fall: Reports: tripped Loss of Consciousness: Reports: no loss of consciousness Associated Symptoms: Reports: none Other Injuries: Reports: none Review of Systems - Review of Systems Constitutional: Present: See HPI EYE: Present: no symptoms reported ENT: Present: no symptoms reported Respiratory: Present: no symptoms reported Cardiology: Present: no symptoms reported Gastrointestinal/Abdominal: Present: no symptoms reported Genitourinary: Present: no symptoms reported Musculoskeletal: Present: See HPI Skin: Present: no symptoms reported Neurological: Present: no symptoms reported Endocrine: Present: no symptoms reported Hematologic/Lymphatic: Present: no symptoms reported Psych: Present: no symptoms reported - Patient's Past Medical History Patient History - Medical: Anemia, Anesthesia Reaction, Arthritis, Diabetes Type 2, Depression, GERD, Headache, Liver Disease, UTI'S Patient History - Cardiac/Respiratory: Coronary Heart Disease, Hypertension, Myocardial Infarction Patient History - Cancer: No Hx of Cancer Patient History - Surgical Procedures: Cataracts, Colonoscopy, Cardiac stent, EGD, Hysterectomy, Other Patient History - Other: None - Family History Mother Family History - Medical: Family History - Cardiac/Respiratory: No pertinent hx Family History - Cancer: Pancreatic Father Family History - Medical: , Diabetes Type 2 Family History - Cardiac/Respiratory: CHF Brother Family History - Medical: , Diabetes Type 2 Sister Family History - Medical: - Social History Living Situations: home Abuse History: No History of abuse Psych History: Hx of Depression Alcohol Use: none Drug Use: none - Immunizations Immunizations Up to Date: Yes Hx Pneumococcal Vaccination: Yes History of Influenza Vaccine: Yes Physical Exam - Physical Exam General Appearance: Present: wd/wn, alert, mild distress Head Exam: Present: normal inspection Eye Exam: Normal inspection: bilateral, PERRL: bilateral Ears, Nose, Throat: Present: normal ENT inspection, H, normal pharynx Neck: Present: normal inspection, nontender Respiratory: Present: no respiratory distress, normal breath sounds, no accessory muscle use, chest nontender, lungs clear Cardiovascular/Chest: Present: regular rate, rhythm, no murmur, normal peripheral pulses Gastrointestinal/Abdominal: Present: normal bowel sounds, nontender, nondistended, soft, no organomegaly Rectal Exam: Present: deferred Back Exam: Present: normal inspection, normal range of motion Extremity Exam: Present: non-tender, normal range of motion, no edema, other - palpable tenderness along the musculature fascia of the left saba Neurological Exam: Present: alert, oriented, normal mood/affect Skin Exam: Present: normal color, warm/dry Lymphatic Exam: Present: no adenopathy ED Progress - Results and Orders Patient's Lab Results:: I have reviewed the patient's lab results. - Vital Signs Vital Signs: Vital Signs 04/24/17 04/24/17 15:17 15:21 Temperature 36.7 C 36.7 C Pulse Rate 70 70 Respiratory 12 12 Rate Blood Pressure 110/66 110/66 O2 Sat by Pulse 100 100 Oximetry - X-Ray X-Ray #1 X-Ray: leg Interpretation: Reviewed by me - Progress/Reassessment Chief Complaint: Lower Extremity Pain/ Injury Plan - Plan Plan: Patient appears to have a small knee contusion and what appears also to be saba splint type of injury. Patient will be started on anti-inflammatory for what appears to be shins splints and she will follow-up with her family physician as needed Departure Clinical Impression: Knee contusion Qualifiers: Encounter type: initial encounter Laterality: left Qualified Code(s): S80.02XA - Contusion of left knee, initial encounter - Departure Disposition: Home self-care Condition: Good Instructions: Contusion, [id number], Muscle Strain, [id number] Prescriptions: traMADol HCL [Ultram] 50 mg PO QID PRN #20 tablet PRN Reason: Moderate Pain
== END 2017-04-24 16:40 | disposition home or self-care (01) ==
LOC: ER 15:13
DX: S80.02XA Contusion of left knee, initial encounter (principal); Z87.440 Personal history of urinary (tract) infections; E11.9 Type 2 diabetes mellitus without complications; Z79.4 Long term (current) use of insulin; I10 Essential (primary) hypertension; Z95.5 Presence of coronary angioplasty implant and graft; I25.2 Old myocardial infarction; F32.9 Major depressive disorder, single episode, unspecified

== ENCOUNTER 2017-07-08 02:46 | Emergency (ER) | payer MEDICARE, BC ==
[2017-07-08] MEDS ORDERED: HYDROmorphone HCL 1 MG/ML DISP.SYRIN IM ONE (02:57)
[2017-07-08] MEDS ORDERED: HYDROmorphone HCL 1 MG/ML DISP.SYRIN ONE (03:01)
--- NOTE | 2017-07-08 04:13 | ERNOTE ---
Back Pain ER HPI Date of Service: 07/08/17 Presenting Symptoms: injury/pain to back Time Seen by Provider: 07/08/17 02:46 Source: patient Exam Limitations: no limitations Immunizations: IMMUNIZATION HX Immunizations Up to Date Yes History of Influenza Vaccine No Hx Pneumococcal Vaccination No Allergies/Adverse Reactions: Allergies lisinopril Allergy (Verified 04/24/17 15:21) lactose Adverse Reaction (Mild, Verified 04/24/17 15:21) GAS latex Adverse Reaction (Mild, Verified 04/24/17 15:21) RASH Home Medications: HOME MEDICATIONS Insulin Aspart [Novolog Flexpen] 13 unit SQ AC 09/18/13 [Last Taken Unknown] Insulin Glargine,Hum.rec.anlog [Lantus] 30 unit SQ BID 09/18/13 [Last Taken Unknown] Aspirin [Aspirin EC] 81 mg PO DAILY 04/20/16 [Last Taken Unknown] Nadolol [Corgard] 40 mg PO HS 09/08/16 [Last Taken Unknown] Acetaminophen [Tylenol] 1 - 2 tab PO Q6H 10/20/16 [Last Taken Unknown] Duloxetine HCl [Cymbalta] 90 mg PO DAILY 10/20/16 [Last Taken Unknown] Furosemide [Lasix] 20 mg PO DAILY 10/20/16 [Last Taken Unknown] Pantoprazole Sodium [Protonix] 40 mg PO DAILY 10/20/16 [Last Taken Unknown] Pramipexole Di-HCl [Mirapex] 0.5 mg PO HS 10/20/16 [Last Taken Unknown] Pravastatin Sodium [Pravachol] 20 mg PO DAILY 10/20/16 [Last Taken Unknown] Calcium Carb, Citrate/Vit D3 [Calcium + D3 ER Tablet] 1 each PO DAILY 07/08/17 [ Last Taken Unknown] HYDROcodone/ACETAMINOPHEN [[place] 5-325] 1 tab PO Q4H PRN #40 tab 07/08/17 [Last Taken Unknown] Spironolactone [Aldactone] 25 mg PO DAILY 07/08/17 [Last Taken Unknown] Narrative: prior to having cholecystectomy patient fell and sustained l-1 fracture, pain become worse this am brought by ambulance Timing: Reports: constant, getting worse Quality/Severity: Reports: moderate Location of pain: Reports: mid back, lower back Activities at Onset: Reports: none Recent Injury?: Reports: yes Possible Precipitating Factor: Reports: lifting, turning/bending Modifying Factors - (Improves): Reports: nothing Modifying Factors - (Worsens): Reports: movement to right, movement to left, movement flexion Associated Symptoms: Reports: none Prior Treament: Reports: recently seen, treated by physician Review of Systems - Narrative Narrative: c/o of back pain - Review of Systems Constitutional: Present: See HPI, weakness, fatigue, malaise EYE: Present: no symptoms reported ENT: Present: no symptoms reported Respiratory: Present: no symptoms reported Cardiology: Present: no symptoms reported Gastrointestinal/Abdominal: Present: no symptoms reported Genitourinary: Present: no symptoms reported Musculoskeletal: Present: See HPI, back pain Neurological: Present: no symptoms reported Endocrine: Present: no symptoms reported Hematologic/Lymphatic: Present: no symptoms reported Psych: Present: no symptoms reported All Other Systems: All systems neg except as marked - Narrative Narrative: c/o of back pain since before surgery - Patient's Past Medical History Patient History - Medical: Anemia, Anesthesia Reaction, Arthritis, Diabetes Type 2, Depression, GERD, Headache, Liver Disease, UTI'S Patient History - Cardiac/Respiratory: Coronary Heart Disease, Hypertension, Myocardial Infarction Patient History - Cancer: No Hx of Cancer Patient History - Surgical Procedures: Cataracts, Cholecystectomy, Colonoscopy, Cardiac stent, EGD, Hysterectomy, Other Patient History - Other: None - Family History Mother Family History - Medical: Family History - Cardiac/Respiratory: No pertinent hx Family History - Cancer: Pancreatic Father Family History - Medical: , Diabetes Type 2 Family History - Cardiac/Respiratory: No pertinent hx, CHF Family History - Cancer: No pertinent family hx Brother Family History - Medical: , Diabetes Type 2 Family History - Cardiac/Respiratory: No pertinent hx Family History - Cancer: No pertinent family hx Sister Family History - Medical: Family History - Cardiac/Respiratory: No pertinent hx Family History - Cancer: No pertinent family hx - Social History Living Situations: alone Abuse History: No History of abuse Psych History: Hx of Depression Does anyone smoke in the home?: No Smoking Status: Never smoker Have you smoked in the past 12 months: No Do you dip or chew tobacco: No Patient requests Smoking Cessation Consult: No Initiate information on Smoking Cessation: No Alcohol Use: none Drug Use: none - Immunizations Immunizations Up to Date: Yes Hx Pneumococcal Vaccination: No History of Influenza Vaccine: No Physical Exam - Physical Exam General Appearance: Present: moderate distress Head Exam: Present: normal inspection, no evidence of injury Eye Exam: Normal inspection: bilateral, PERRL: bilateral, EOMI: bilateral Ears, Nose, Throat: Present: normal ENT inspection Neck: Present: normal inspection, nontender Respiratory: Present: no respiratory distress, normal breath sounds, no accessory muscle use, chest nontender, lungs clear Cardiovascular/Chest: Present: regular rate, rhythm, no murmur, normal peripheral pulses Peripheral Pulses: N=norm/S=strong/W=weak/B=bound/A=absent: Carotid (R): Normal , Carotid (L): Normal, Radial (R): Normal, Radial (L): Normal, Femoral (R): Normal, Femoral (L): Normal, Dorsalis-pedis (R): Normal, Dorsalis-pedis (L): Normal Gastrointestinal/Abdominal: Present: normal bowel sounds, nontender, nondistended, soft, no organomegaly Back Exam: Present: vertebral tenderness, decreased range of motion, muscle spasm - pain in lumbar region Extremity Exam: Present: normal inspection, non-tender, normal range of motion, no edema Neurological Exam: Present: alert, oriented, normal mood/affect, no motor/ sensory deficits DTR: N=norm/NB=norm/brisk/A=abs/DD=dull/dimin/HC=hyperactive: Bicep (R): Normal , Bicep (L): Normal, Tricep (R): Normal, Tricep (L): Normal, Knee (R): Normal, Knee (L): Normal, Ankle (R): Normal, Ankle (L): Normal Skin Exam: Present: normal color, warm/dry Lymphatic Exam: Present: no adenopathy ED Progress - Vital Signs Vital Signs: Vital Signs 07/08/17 02:49 Temperature 37.0 C Pulse Rate 84 Respiratory 20 Rate Blood Pressure 128/54 O2 Sat by Pulse 95 Oximetry - X-Ray X-Ray #1 X-Ray: lumbosacral - evidense of l-1 compressiion fracture, appears stable - Progress/Reassessment Chief Complaint: Back Pain Progress:: Improved - discussed findings of x-ray with patient, to be dismissed - Transfer of Care Expected Disposition: Discharge Plan - Plan Plan: to be discharged Departure Clinical Impression: Lumbar compression fracture - Departure Disposition: Home self-care Condition: Fair Instructions: Lumbar Fracture, Lumbar Puncture, Care After Referrals: Kavya Jacinto MD [Primary Care Provider] - Prescriptions: HYDROcodone/ACETAMINOPHEN [[place] 5-325] 1 tab PO Q4H PRN #40 tab PRN Reason: Pain
[2017-07-08 05:30] VITALS: BP 132/65
== END 2017-07-08 04:30 | disposition home or self-care (01) ==
LOC: ER 02:46
DX: M48.56XD Collapsed vertebra, not elsewhere classified, lumbar region, subsequent encounter for fracture with routine healing (principal); W19.XXXA Unspecified fall, initial encounter; D64.9 Anemia, unspecified; E11.9 Type 2 diabetes mellitus without complications; M19.90 Unspecified osteoarthritis, unspecified site; K21.9 Gastro-esophageal reflux disease without esophagitis; I10 Essential (primary) hypertension; I25.2 Old myocardial infarction

== ENCOUNTER 2018-08-10 19:08 | Observation (INO) | payer BC, MEDICARE ==
--- NOTE | 2018-08-10 19:30 | ERNOTE ---
<Jackeline Guerrero - Last Filed: 08/10/18 20:09> Dizziness ER Record Presenting Symptoms: dizziness Time Seen by Provider: 08/10/18 19:08 Source: patient Exam Limitations: no limitations Immunizations: IMMUNIZATION HX Immunizations Up to Date Yes History of Influenza Vaccine No Hx Pneumococcal Vaccination Yes Allergies/Adverse Reactions: Allergies Allergy/AdvReac Type Severity Reaction Status Date / Time lisinopril Allergy dry cough Verified 07/26/18 15:08 lactose AdvReac Mild GAS Verified 07/26/18 15:08 latex AdvReac Mild RASH Verified 07/26/18 15:08 Home Medications: HOME MEDICATIONS Duloxetine HCl [Cymbalta] 60 mg PO DAILY 10/20/16 [Last Taken 08/09/18 21:00] Pravastatin Sodium [Pravachol] 20 mg PO DAILY 10/20/16 [Last Taken 08/09/18 21:00] Aspirin 81 mg PO DAILY 01/12/18 [Last Taken 08/09/18 21:00] Sennosides/Docusate Sodium [Senokot-S] 2 tab PO HS #30 tab 01/18/18 [Last Taken Unknown] tramadol 50 mg tablet 50 mg PO Q6H PRN 03/26/18 [Last Taken 05/13/18] melatonin 5 mg tablet 5 mg PO HS PRN 04/17/18 [Last Taken 08/09/18 21:00] nadolol 20 mg tablet 10 mg PO DAILY tab 04/17/18 [Last Taken 08/09/18 21:00] fludrocortisone 0.1 mg tablet 0.1 mg PO DAILY #90 tab 04/24/18 [Last Taken 08/09/18 21:00] insulin lispro (U- 100) 100 unit/mL subcutaneous pen 10 unit SUBCUT AC #15 ml 05/15/18 [Last Taken Unknown] polyethylene glycol 3350 17 gram/dose oral powder 17 g PO Q OTHER DAY #255 g 05/30/18 [Last Taken Unknown] furosemide 40 mg tablet 40 mg PO DAILY #30 tab 06/07/18 [Last Taken 08/09/18 21:00] spironolactone 25 mg tablet 50 mg PO DAILY #180 tab 06/11/18 [Last Taken 08/10/18 09:00] pramipexole 0.5 mg tablet 1 mg PO HS #180 tab 06/15/18 [Last Taken 08/09/18 21:00] acetaminophen 500 mg tablet 500 mg PO Q6H PRN 06/25/18 [Last Taken Unknown] calcitonin (salmon) 200 unit/actuation nasal spray 1 spray INTRANASAL (ALT) DAILY #3.7 ml 07/09/18 [Last Taken 08/09/18 21:00] Cholecalciferol (Vitamin D3) [Vitamin D3] 400 unit PO DAILY 08/10/18 [Last Taken 08/10/18 09:00] Ciprofloxacin HCl 500 mg PO DAILY 08/10/18 [Last Taken Unknown] Insulin Glargine,Hum.rec.anlog [Lantus] 20 unit SUB-Q TID 08/10/18 [Last Taken 08/10/18 12:00] Lactobacillus Combination No.4 [Probiotic] 1 ea PO DAILY 08/10/18 [Last Taken 09:00] - History of Present Illness Narrative: Patient states that she was sitting on the edge of her bed and reaching when she lost her balance and slid to the floor. She denies falling, hitting her head or loosing consciousness. She has had generalized weakness for a while and was unable to get up and called EMS. On arrival she complaint of dizziness (which she has had for months), her glucose was over 400 and she was advised to come to the ER. She denies any pain currently. She has a history of cirrhosis (ETOH related?),lives by herself, admits to missing her midday insulin frequently. She falls frequently, has chronic urinary incontinence Review of Systems - Review of Systems Constitutional: Present: weakness, malaise. Absent: recent illness, fever, chills EYE: Absent: vision changes ENT: Absent: nose congestion, sore throat Respiratory: Absent: shortness of breath, cough Cardiology: Absent: chest pain Gastrointestinal/Abdominal: Absent: nausea, vomiting, abdominal pain Genitourinary: Present: See HPI. Absent: dysuria Musculoskeletal: Absent: back pain Skin: Present: lesions - on right shoulder that possibly started as a zit? Neurological: Present: weakness - generalized. Absent: headache, numbness Medical History (Last Reviewed 08/10/18 @ 20:16 by Jackeline Guerrero MD) Alcoholic cirrhosis of liver Onset Date: 10/2015 CAD (coronary artery disease) Onset Date: 06/14/13 Depression Diabetes mellitus type II, uncontrolled Onset Date: 06/14/13 Esophageal varices Onset Date: 10/2015 Fracture, fibula Left Lateral malleous Fracture, humerus, proximal Onset Date: 07/18/16 Fracture, scapula Onset Date: 07/18/16 Glenoid cavity and neck of right scapula GI bleed Onset Date: 10/2015 Humerus surgical neck fracture Onset Date: ~2017 right Hypertension Influenza vaccine refused wants to receive at a later date. 07/26/18 Shoulder arthritis Onset Date: 11/28/16 Shoulder pain right Steatohepatitis Onset Date: 09/09/13 Surgical History: Surgical History (Last Reviewed 08/10/18 @ 20:16 by Jackeline Guerrero MD) Cataract Onset Date: 06/30/08 Left H/O inguinal hernia repair Onset Date: 10/14/99 [facility] H/O repair of left rotator cuff Onset Date: 05/05/04 History of liver biopsy Onset Date: 03/13/96 open-steatohepatitis History of open reduction and internal fixation (ORIF) procedure Onset Date: 04/21/16 Breder/ORIF R 3 part proximal humerus fracture Hx of hysterectomy, total Onset Date: 1983 Radius distal fracture Onset Date: 09/05/12 ORIF-right Stented coronary artery Onset Date: ~2006 2 Stents. [place]. finger surgery Onset Date: 12/10/14 Dr. Gomez, left index finger arthrodesis PIP and excision of mucus History of colonoscopy Onset Date: 05/14/18 10/02/13 Bagan/villous adenoma, serrated adenoma, hyperplastic polyp. 05/14/18 Bagan-tubular adenoma. Recheck 5 yrs. History of esophagogastroduodenoscopy (EGD) Onset Date: 05/14/18 94,96,15,16,17, 08/24 2013 EGD with Variceal banding. 05/14/18 Bagan-clotest negative, mild benign reactive gastropathy/chemical gastritis. Hx laparoscopic cholecystectomy Onset Date: 06/2017 [facility] Family History: Family History (Last Reviewed 07/26/18 @ 15:08 by Roro Martinez) Brother , 5 brothers-all w/heart disease Diabetes Heart disease Brother Diabetes Parkinson disease Father , age 70's-bone cancer Diabetes Heart disease CHF (congestive heart failure) Cancer bone Sister Diabetes 1 sister Cancer 1 sister-lung cancer Mother , age 72-pancreatic cancer Cancer pancreatic CA Goiter Social History: Preferred Language Tongan Do you have any jew or No cultural preference? Smoking Status Never smoker Abuse History No History of abuse Psych History Hx of Depression,Currently on Meds Alcohol Use none (Last Updated 07/27/18 @ 12:42 by Kirsten Lyle DPM) No Social History Section defined Physical Exam - Physical Exam General Appearance: Present: wd/wn, alert, no apparent distress, anxious Head Exam: Present: normal inspection, no evidence of injury Eye Exam: Normal inspection: bilateral Ears, Nose, Throat: Present: normal ENT inspection, normal pharynx Neck: Present: normal inspection, nontender, supple, full range of motion Respiratory: Present: no respiratory distress, normal breath sounds, no accessory muscle use, chest nontender, lungs clear, decreased breath sounds Cardiovascular/Chest: Present: regular rate, rhythm, no murmur Peripheral Pulses: N=norm/S=strong/W=weak/B=bound/A=absent: Dorsalis-pedis (R): Normal, Dorsalis-pedis (L): Normal Gastrointestinal/Abdominal: Present: normal bowel sounds, nondistended, soft, hepatomegaly - mildly tender Extremity Exam: Present: pedal edema - +2 bilateral Neurological Exam: Present: alert, oriented, normal mood/affect, other - minimal resting tremor Skin Exam: Present: normal color, warm/dry, other - on right posterior shoulder about 1cm skin ulcer with surrounding erythema Progress - Results and Orders Patient's Lab Results:: I have reviewed the patient's lab results. - Vital Signs Patient's Vital Signs:: I have reviewed the patient's vital signs. Vital Signs: Vital Signs 08/10/18 19:10 Temperature 37.1 C Pulse Rate 80 Respiratory Rate 17 Blood Pressure 126/66 O2 Sat by Pulse Oximetry 100 - EKG EKG: NSR, nonspecific ST T wave changes, other - poor R progression, unchanged from prior EKG read: Interp. by me - Progress/Reassessment Chief Complaint: Dizziness - Transfer of Care Physician Sign Out: Jackeline Guerrero Receiving Physician: Matt Jeronimo Clinical Impression: Generalized weakness, Cirrhosis of liver - Departure Disposition: Still a patient Condition: Stable Referrals: Kavya Jacinto MD [Primary Care Provider] - <Matt Jeronimo - Last Filed: 08/10/18 23:15> Dizziness ER Record Immunizations: IMMUNIZATION HX Immunizations Up to Date Yes History of Influenza Vaccine No Hx Pneumococcal Vaccination Yes Medical History (Last Reviewed 08/10/18 @ 20:16 by Jackeline Guerrero MD) Alcoholic cirrhosis of liver Onset Date: 10/2015 CAD (coronary artery disease) Onset Date: 06/14/13 Depression Diabetes mellitus type II, uncontrolled Onset Date: 06/14/13 Esophageal varices Onset Date: 10/2015 Fracture, fibula Left Lateral malleous Fracture, humerus, proximal Onset Date: 07/18/16 Fracture, scapula Onset Date: 07/18/16 Glenoid cavity and neck of right scapula GI bleed Onset Date: 10/2015 Humerus surgical neck fracture Onset Date: ~2017 right Hypertension Influenza vaccine refused wants to receive at a later date. 07/26/18 Shoulder arthritis Onset Date: 11/28/16 Shoulder pain right Steatohepatitis Onset Date: 09/09/13 Surgical History: Surgical History (Last Reviewed 08/10/18 @ 20:16 by Jackeline Guerrero MD) Cataract Onset Date: 06/30/08 Left H/O inguinal hernia repair Onset Date: 10/14/99 [facility] H/O repair of left rotator cuff Onset Date: 05/05/04 History of liver biopsy Onset Date: 03/13/96 open-steatohepatitis History of open reduction and internal fixation (ORIF) procedure Onset Date: 04/21/16 Breder/ORIF R 3 part proximal humerus fracture Hx of hysterectomy, total Onset Date: 1983 Radius distal fracture Onset Date: 09/05/12 ORIF-right Stented coronary artery Onset Date: ~2006 2 Stents. [place], [place]. finger surgery Onset Date: 12/10/14 Dr. Gomez, left index finger arthrodesis PIP and excision of mucus History of colonoscopy Onset Date: 05/14/18 10/02/13 Bagan/villous adenoma, serrated adenoma, hyperplastic polyp. 05/14/18 Bagan-tubular adenoma. Recheck 5 yrs. History of esophagogastroduodenoscopy (EGD) Onset Date: 05/14/18 94,96,15,16,17, 08/24 2013 EGD with Variceal banding. 05/14/18 Bagan-clotest negative, mild benign reactive gastropathy/chemical gastritis. Hx laparoscopic cholecystectomy Onset Date: 06/2017 [facility] Family History: Family History (Last Reviewed 07/26/18 @ 15:08 by Roor Martinez) Brother , 5 brothers-all w/heart disease Diabetes Heart disease Brother Diabetes Parkinson disease Father , age 70's-bone cancer Diabetes Heart disease CHF (congestive heart failure) Cancer bone Sister Diabetes 1 sister Cancer 1 sister-lung cancer Mother , age 72-pancreatic cancer Cancer pancreatic CA Goiter Social History: Preferred Language Tongan Do you have any jew or No cultural preference? Smoking Status Never smoker Abuse History No History of abuse Psych History Hx of Depression,Currently on Meds Alcohol Use none (Last Updated 07/27/18 @ 12:42 by Kirsten Lyle DPM) No Social History Section defined Progress - Vital Signs Vital Signs: Vital Signs 08/10/18 19:10 08/10/18 19:27 08/10/18 19:52 Temperature 37.1 C Pulse Rate 80 82 77 Respiratory Rate 17 15 Blood Pressure 126/66 122/79 O2 Sat by Pulse Oximetry 100 99 Plan - Plan Plan: Taking over for Dr. Guerrero, patient is dizzy Patient has a history of end stage liver disease and cirrhosis. She fell today and couldnt get back up. WBC is 5, ammonia is 61, lactic acid is 2.7. glucose is 392. Patient fell at home couldnt get back up, and she has upper back pain on the left side, with nausea and a headache. Left rib x ray is negative for acute fracture. She is stuttering her words, and is weak, and cannot ambulate. Likely hepatic encephalopathy. Admit to Dr. Germain 11:11 p.m.
[2018-08-10 19:41] LABS: Hemoglobin 10.7 gm/dL (12.5-16.0); Mean Cell Volume 92.5 fl (78-100); Mean Corpuscular Hemoglobin 30.9 pg (27-31); Mean Corpuscular Hgb Conc 33.4 g/dl (32-36); Mean Platelet Volume 10.6 fl (8-12.5); Neutrophil # 3.2 K/mm3 (1.3-6.0); Neutrophil % 63.8 % (42-75.0); Platelet Count 110 K/mm3 (150-450); Red Blood Count 3.46 M/mm3 (4.2-5.4); Red Cell Distribution Width 13.4 % (11.5-14.0)
[2018-08-10 19:59] LABS: ALT 69 U/L (19-67); AST 61 U/L (0-48); Albumin * 2.7 gm/dl (3.4-5.0); Alkaline Phosphatase * 254 U/L (50-170); Anion Gap 11.9 mmol/L (6.8-13.8); Bilirubin, Total 0.6 mg/dL (0.0-1.1); Blood Urea Nitrogen 19 mg/dL (3-23); Ca. Corrected For Albumin 9.3 mg/dL (8.4-10.2); Calcium * 8.6 mg/dL (7.9-10.9); Carbon Dioxide 26.1 mmol/L (24-32.6); Chloride 102 mmol/L (97-106); Glucose * 392 mg/dL (70-110); Sodium 136 mmol/L (132-142); Total Protein 7.1 gm/dL (6.2-8.2)
[2018-08-10 20:49] LABS: Troponin I Less than 0.017 ng/mL (0.00-0.10)
[2018-08-10 21:16] LABS: Urine Amorphous Sediment Few - 1+ (NONE-FEW); Urine Appearance Cloudy (CLEAR); Urine Bacteria 2+; Urine Bilirubin Negative (NEGATIVE); Urine Blood Negative /ul (NEGATIVE); Urine Color Yellow; Urine Ketone Negative (NEGATIVE); Urine Nitrite Negative (NEGATIVE); Urine Protein Negative (NEGATIVE); Urine RBC None Seen /hpf (0-5); Urine Urobilinogen Normal (NORMAL); Urine WBC None Seen /hpf (0-5); Urine pH 6.5 pH (5.0-7.0)
[2018-08-10] MEDS ORDERED: NORMAL SALINE 1,000 ML IV ONE ×2 (21:37→22:59)
[2018-08-10] MEDS ORDERED: ONDANSETRON HCL/PF 2 MG/ML VIAL IV ONE (21:47)
[2018-08-10] MEDS ORDERED: KETOROLAC TROMETHAMINE 30 MG/ML VIAL IV ONE (21:47)
[2018-08-11] MEDS ORDERED: ACETAMINOPHEN 325 MG TABLET PO PRN (00:41)
[2018-08-11] MEDS: NYSTATIN 15 APPL BTL TP SCH ×2 (01:15→08:13)
[2018-08-11] MEDS ORDERED: FLUDROCORTISONE ACETATE 0.1 MG TABLET PO SCH (09:45)
[2018-08-11] MEDS ORDERED: CALCITONIN,SALMON,SYNTHETIC 30 SPRAY BTL NS SCH (09:45)
[2018-08-11] MEDS ORDERED: ASPIRIN 81 MG TAB.CHEW PO SCH (09:45)
[2018-08-11] MEDS ORDERED: FUROSEMIDE 40 MG TABLET PO SCH (09:45)
[2018-08-11] MEDS ORDERED: SPIRONOLACTONE 25 MG TABLET PO SCH (09:45)
[2018-08-11] MEDS ORDERED: DULoxetine HCL 20 MG CAPSULE.SA PO SCH (09:45)
[2018-08-11] MEDS ORDERED: POLYETHYLENE GLYCOL 3350 119 GM BTL PO SCH (09:45)
[2018-08-11] MEDS ORDERED: INSULIN GLARGINE,HUM.REC.ANLOG 100 UNITS/ML VIAL SC SCH ×2 (09:52→13:00)
[2018-08-11] MEDS ORDERED: CIPROFLOXACIN HCL 500 MG TABLET PO SCH (10:00)
--- NOTE | 2018-08-11 10:33 | HP ---
Chief Complaint - Chief Complaint Date of Service: 08/11/18 Time of Service: 10:07 Chief Complaint: dizziness, weakness History of Present Illness: This is a 68-year-old female who presents with complaints of fall and dizziness. She states she was sitting at the edge of her bed and reached for something when she lost her balance and slipped to the floor. She called for help and when the EMS arrived she noted that she had weakness and was unable to pull herself up from the floor, at that time she also felt dizzy. Her blood sugar was checked and was almost almost 400, so EMS decided to send her to the emergency room. She denied loss of consciousness or blacking out and she denied hitting her head or any injuries with the fall. Medical History (Last Reviewed 08/11/18 @ 00:57 by Karissa Ryder RN) Alcoholic cirrhosis of liver Onset Date: 10/2015 CAD (coronary artery disease) Onset Date: 06/14/13 Depression Diabetes mellitus type II, uncontrolled Onset Date: 06/14/13 Esophageal varices Onset Date: 10/2015 Fracture, fibula Left Lateral malleous Fracture, humerus, proximal Onset Date: 07/18/16 Fracture, scapula Onset Date: 07/18/16 Glenoid cavity and neck of right scapula GI bleed Onset Date: 10/2015 Humerus surgical neck fracture Onset Date: ~2017 right Hypertension Influenza vaccine refused wants to receive at a later date. 07/26/18 Shoulder arthritis Onset Date: 11/28/16 Shoulder pain right Steatohepatitis Onset Date: 09/09/13 Surgical History: Surgical History (Last Reviewed 08/11/18 @ 00:57 by Karissa Ryder RN) Cataract Onset Date: 06/30/08 Left H/O inguinal hernia repair Onset Date: 10/14/99 R[facility] H/O repair of left rotator cuff Onset Date: 05/05/04 History of liver biopsy Onset Date: 03/13/96 open-steatohepatitis History of open reduction and internal fixation (ORIF) procedure Onset Date: 04/21/16 Breder/ORIF R 3 part proximal humerus fracture Hx of hysterectomy, total Onset Date: 1983 Radius distal fracture Onset Date: 09/05/12 ORIF-right Stented coronary artery Onset Date: ~2006 2 Stents. [place] finger surgery Onset Date: 12/10/14 Dr. Gomez, left index finger arthrodesis PIP and excision of mucus History of colonoscopy Onset Date: 05/14/18 10/02/13 Bagan/villous adenoma, serrated adenoma, hyperplastic polyp. 05/14/18 Bagan-tubular adenoma. Recheck 5 yrs. History of esophagogastroduodenoscopy (EGD) Onset Date: 05/14/18 94,96,15,16,17, 08/24 2013 EGD with Variceal banding. 05/14/18 Bagan-clotest negative, mild benign reactive gastropathy/chemical gastritis. Hx laparoscopic cholecystectomy Onset Date: 06/2017 [facility] Family History: Family History (Last Reviewed 08/11/18 @ 00:57 by Karissa Ryder RN) Brother , 5 brothers-all w/heart disease Diabetes Heart disease Brother Diabetes Parkinson disease Father , age 70's-bone cancer Diabetes Heart disease CHF (congestive heart failure) Cancer bone Sister Diabetes 1 sister Cancer 1 sister-lung cancer Mother , age 72-pancreatic cancer Cancer pancreatic CA Goiter Social History: Patient Lives/Resources Home Utilized Occupation retired Preferred Language Turkmen Do you have any pentecostalism or No cultural preference? Smoking Status Never smoker Have you smoked in the past 12 No months Do you dip or chew tobacco No Abuse History No History of abuse Psych History Hx of Depression,Currently on Meds Alcohol Use none (Last Updated 07/27/18 @ 12:42 by Kirsten Lyle DPM) No Social History Section defined Review Of Systems (GEN) - Review of Systems Generalized/Overall Review: Present: Weakness Respiratory: Absent: Shortness of Breath Cardiac: Absent: Chest Pain Abdominal: Absent: Nausea, Vomiting, Abdominal Pain Misc: All systems neg except as marked Immunizations: IMMUNIZATION HX Immunizations Up to Date Yes History of Influenza Vaccine No Hx Pneumococcal Vaccination Yes Allergies/Adverse Reactions: Allergies Allergy/AdvReac Type Severity Reaction Status Date / Time lisinopril Allergy dry cough Verified 07/26/18 15:08 lactose AdvReac Mild GAS Verified 07/26/18 15:08 latex AdvReac Mild RASH Verified 07/26/18 15:08 Home Medications: HOME MEDICATIONS Duloxetine HCl [Cymbalta] 60 mg PO DAILY 10/20/16 [Last Taken 08/09/18 21:00] Pravastatin Sodium [Pravachol] 20 mg PO DAILY 10/20/16 [Last Taken 08/09/18 21:00] Aspirin 81 mg PO DAILY 01/12/18 [Last Taken 08/09/18 21:00] Sennosides/Docusate Sodium [Senokot-S] 2 tab PO HS #30 tab 01/18/18 [Last Taken Unknown] tramadol 50 mg tablet 50 mg PO Q6H PRN 03/26/18 [Last Taken 05/13/18] melatonin 5 mg tablet 5 mg PO HS PRN 04/17/18 [Last Taken 08/09/18 21:00] nadolol 20 mg tablet 10 mg PO DAILY tab 04/17/18 [Last Taken 08/09/18 21:00] fludrocortisone 0.1 mg tablet 0.1 mg PO DAILY #90 tab 04/24/18 [Last Taken 08/09/18 21:00] insulin lispro (U- 100) 100 unit/mL subcutaneous pen 10 unit SUBCUT AC #15 ml 05/15/18 [Last Taken Unknown] polyethylene glycol 3350 17 gram/dose oral powder 17 g PO Q OTHER DAY #255 g 05/30/18 [Last Taken Unknown] furosemide 40 mg tablet 40 mg PO DAILY #30 tab 06/07/18 [Last Taken 08/09/18 21:00] spironolactone 25 mg tablet 50 mg PO DAILY #180 tab 06/11/18 [Last Taken 08/10/18 09:00] pramipexole 0.5 mg tablet 1 mg PO HS #180 tab 06/15/18 [Last Taken 08/09/18 21:00] acetaminophen 500 mg tablet 500 mg PO Q6H PRN 06/25/18 [Last Taken Unknown] calcitonin (salmon) 200 unit/actuation nasal spray 1 spray INTRANASAL (ALT) DAILY #3.7 ml 07/09/18 [Last Taken 08/09/18 21:00] Cholecalciferol (Vitamin D3) [Vitamin D3] 400 unit PO DAILY 08/10/18 [Last Taken 08/10/18 09:00] Ciprofloxacin HCl 500 mg PO DAILY 08/10/18 [Last Taken Unknown] Insulin Glargine,Hum.rec.anlog [Lantus] 20 unit SUB-Q TID 08/10/18 [Last Taken 08/10/18 12:00] Lactobacillus Combination No.4 [Probiotic] 1 ea PO DAILY 08/10/18 [Last Taken 08/10/18 09:00] Exam - Exam Vital Signs: Vital Signs - Last Taken Temp 36.6 C 08/11/18 06:56 Pulse 82 08/11/18 06:56 Resp 18 08/11/18 06:56 BP 125/55 08/11/18 06:56 Pulse Ox 96 08/11/18 06:56 Constitutional: Present: Alert, Cooperative, Well developed, Well nourished, No distress ENT Exam: Present: hearing grossly normal Neck: Present: non-tender, supple, trachea midline. Absent: lymphadenopathy (R), lymphadenopathy (L) Cardiovascular/Chest: Present: normal peripheral pulses, regular rate, rhythm, no murmur, edema Abdomen: Present: Normal bowel sounds, soft, nontender Extremity: Present: pedal edema Skin Exam: Present: normal color, warm/dry Eye contact: Present: cooperative Diagnostic Studies: Abnormal Lab Results 08/10/18 08/10/18 08/10/18 Range/Units 19:35 19:35 19:35 RBC 3.46 L (4.2-5.4) M/mm3 Hgb 10.7 L (12.5-16.0) gm/dL Hct 32.0 L (37.0-47.0) % Plt Count 110 L (150-450) K/mm3 Lymphocytes % 18.6 L (20-51) % Monocytes % 13.0 H (0.0-9) % Eosinophils % 3.2 H (0.0-3.0) % Lymphocytes # 0.93 L (1.5-3.5) k/mm3 VBG pH 7.471 H (7.32-7.43) Est GFR (Non-Af Amer) 48 L (60-130) mL/min Random Glucose 392 H (70-110) mg/dL Lactic Acid, Venous (0.4-2.0) mmol/L AST 61 H (0-48) U/L ALT 69 H (19-67) U/L Alkaline Phosphatase 254 H (50-170) U/L Ammonia (11-35) mcmol/L Albumin 2.7 L (3.4-5.0) gm/dl Urine Glucose (UA) (NEGATIVE) mg/dL Urine Bacteria (NONE) 01/11/2308/10/18 08/10/18 Range/Units 19:35 19:45 21:04 RBC (4.2-5.4) M/mm3 Hgb (12.5-16.0) gm/dL Hct (37.0-47.0) % Plt Count (150-450) K/mm3 Lymphocytes % (20-51) % Monocytes % (0.0-9) % Eosinophils % (0.0-3.0) % Lymphocytes # (1.5-3.5) k/mm3 VBG pH (7.32-7.43) Est GFR (Non-Af Amer) (60-130) mL/min Random Glucose (70-110) mg/dL Lactic Acid, Venous 2.7 H* (0.4-2.0) mmol/L AST (0-48) U/L ALT (19-67) U/L Alkaline Phosphatase (50-170) U/L Ammonia 61.0 H (11-35) mcmol/L Albumin (3.4-5.0) gm/dl Urine Glucose (UA) >=1000 H (NEGATIVE) mg/dL Urine Bacteria 2+ H (NONE) Laboratory Results WBC 5.0 K/mm3 (4.0-10.5) 08/10/18 19:35 RBC 3.46 M/mm3 (4.2-5.4) L 08/10/18 19:35 Hgb 10.7 gm/dL (12.5-16.0) L 08/10/18 19:35 Hct 32.0 % (37.0-47.0) L 08/10/18 19:35 MCV 92.5 fl (78-100) 08/10/18 19:35 MCH 30.9 pg (27-31) 08/10/18 19:35 MCHC 33.4 g/dl (32-36) 08/10/18 19:35 RDW 13.4 % (11.5-14.0) 08/10/18 19:35 Plt Count 110 K/mm3 (150-450) L 08/10/18 19:35 MPV 10.6 fl (8-12.5) 08/10/18 19:35 Immature Gran % (Auto) 0.40 % (0.001-0.429) 08/10/18 19:35 Immature Gran # (Auto) 0.02 K/mm3 (0.000-0.0310) 08/10/18 19:35 Neutrophils % 63.8 % (42-75.0) 08/10/18 19:35 Lymphocytes % 18.6 % (20-51) L 08/10/18 19:35 Monocytes % 13.0 % (0.0-9) H 08/10/18 19:35 Eosinophils % 3.2 % (0.0-3.0) H 08/10/18 19:35 Basophils % 1.0 % (0.0-1.0) 08/10/18 19:35 Nucleated RBC % 0.0 k/mm3 (0-1) 08/10/18 19:35 Neutrophils # 3.2 K/mm3 (1.3-6.0) 08/10/18 19:35 Lymphocytes # 0.93 k/mm3 (1.5-3.5) L 08/10/18 19:35 Monocytes # 0.7 k/mm3 (0.0-1.0) 08/10/18 19:35 Eosinophils # 0.2 k/mm3 (0.0-0.7) 08/10/18 19:35 Absolute Basophils 0.1 k/mm3 (0.0-0.1) 08/10/18 19:35 VBG pH 7.471 (7.32-7.43) H 08/10/18 19:35 Sodium 136 mmol/L (132-142) 08/10/18 19:35 Plasma Sodium 141 mmol/L (130-142) 08/10/18 19:35 Potassium 4.0 mmol/L (3.4-4.6) 08/10/18 19:35 Chloride 102 mmol/L (97-106) 08/10/18 19:35 Carbon Dioxide 26.1 mmol/L (24-32.6) 08/10/18 19:35 Anion Gap 11.9 mmol/L (6.8-13.8) 08/10/18 19:35 BUN 19 mg/dL (3-23) 08/10/18 19:35 Creatinine 1.19 mg/dL (0.4-1.4) 08/10/18 19:35 Est GFR (Non-Af Amer) 48 mL/min (60-130) L 01/04/19 19:35 BUN/Creatinine Ratio 16.0 (9.0-21.6) 08/10/18 19:35 Random Glucose 392 mg/dL (70-110) H 08/10/18 19:35 Lactic Acid, Venous 1.3 mmol/L (0.4-2.0) 08/11/18 00:15 Calcium 8.6 mg/dL (7.9-10.9) 08/10/18 19:35 Calcium Adj for Albumin 9.3 mg/dL (8.4-10.2) 08/10/18 19:35 Total Bilirubin 0.6 mg/dL (0.0-1.1) 08/10/18 19:35 AST 61 U/L (0-48) H 08/10/18 19:35 ALT 69 U/L (19-67) H 08/10/18 19:35 Alkaline Phosphatase 254 U/L (50-170) H 08/10/18 19:35 Ammonia 61.0 mcmol/L (11-35) H 08/10/18 19:35 Troponin I Less than 0.017 ng/mL (0.00-0.10) 08/10/18 19:35 C-Reactive Prot, Quant 0.8 mg/dL (0.0-0.9) 08/10/18 19:45 Total Protein 7.1 gm/dL (6.2-8.2) 08/10/18 19:35 Albumin 2.7 gm/dl (3.4-5.0) L 08/10/18 19:35 Urine Color Yellow 08/10/18 21:04 Urine Appearance Cloudy (CLEAR) 08/10/18 21:04 Urine pH 6.5 pH (5.0-7.0) 08/10/18 21:04 Ur Specific [place] 1.010 SP.GR. (1.005-1.010) 08/10/18 21:04 Urine Protein Negative mg/dL (NEGATIVE) 08/10/18 21:04 Urine Glucose (UA) >=1000 mg/dL (NEGATIVE) H 08/10/18 21:04 Urine Ketones Negative mg/dL (NEGATIVE) 08/10/18 21:04 Urine Blood Negative /ul (NEGATIVE) 08/10/18 21:04 Urine Nitrate Negative (NEGATIVE) 08/10/18 21:04 Urine Bilirubin Negative mg/dl (NEGATIVE) 08/10/18 21:04 Urine Urobilinogen Normal EU/dl (NORMAL) 08/10/18 21:04 Ur Leukocyte Esterase Negative /ul (NEGATIVE) 08/10/18 21:04 Urine RBC None seen /hpf (0-5) 08/10/18 21:04 Urine WBC None seen /hpf (0-5) 08/10/18 21:04 Ur Epithelial Cells None seen /hpf (0-5) 08/10/18 21:04 Amorphous Sediment Few - 1+ (NONE-FEW) 08/10/18 21:04 Urine Bacteria 2+ (NONE) H 08/10/18 21:04 Urine Culture Comments No culture indicated 08/10/18 21:04 Serum Ketones Negative (NEGATIVE) 08/10/18 19:35 Assessment/Plan - Assessment/Plan (1) Generalized weakness Assessment: Etiology may be secondary to poor hydration versus hepatic encephalopathy. Hepatic encephalopathy less likely because her symptoms have improved without use of bowel stimulating agents. She ambulates with a walker at home. She has been evaluated by physical therapy today and performed well on ambulation. She will be going home with home health services. Problem: Acute (2) Cirrhosis of liver Assessment: She follows with a mattress packer at [facility]. No changes to current medication regimen. Problem: Chronic Qualifiers: (3) Diabetes mellitus type 2 in obese Assessment: Blood sugar has improved this morning. Continue with her home dose of insulin. Problem: Chronic (4) HTN (hypertension) Assessment: Stable no changes to medication regimen. Problem: Chronic Qualifiers:
--- NOTE | 2018-08-11 10:46 | DS ---
(1) Generalized weakness Diagnosis(s): In the setting of poor hydration status. Symptoms have improved with IV fluids. She has ambulated with the physical therapist and performed well enough to be discharged. Problem: Acute (2) Diabetes mellitus type 2 in obese Diagnosis(s): Continue with current home medication regimen. Follow-up with her PCP. 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 Problem: Chronic Qualifiers: (4) HTN (hypertension) Diagnosis(s): Stable. No changes to her medication regimen. Problem: Chronic Qualifiers: Description of Stay: This is a 68-year-old female who presented with generalized weakness. She was sitting at the edge of her bed at home and reached over to grab something and lost her balance and slipped down to the floor. She found that she was unable to get herself off the floor so she called for help. She noted that she felt dizzy and weak. When EMS arrived they noted that her blood sugar was elevated almost to 400 and decided to send her to the emergency department. In the emergency department she was found to have a pneumonia level in the 60s she received IV fluid hydration and was admitted for observation. Her symptoms improved. Me ntation and confusion both improved. She ambulated with the physical therapist. She will be going home with home health services. Fifi Washburn is confined to the home due to generalized weakness and need for care home is for medication education and management and vital sign monitoring, and the need for physical therapy is for gait and balance issues strengthening, endurance and mobility issues. The need for home health care skilled services is directly related to the time spent [id number] with the patient on August 11, 2018. Procedures Performed: none Results and Findings: Lab Pending Results 08/10/18 19:35: WBC 5.0, RBC 3.46 L, Hgb 10.7 L, Hct 32.0 L, MCV 92.5, MCH 30.9, MCHC 33.4, RDW 13.4, Plt Count 110 L, MPV 10.6, Immature Gran % (Auto) 0.40, Immature Gran # (Auto) 0.02, Neutrophils % 63.8, Lymphocytes % 18.6 L, Monocytes % 13.0 H, Eosinophils % 3.2 H, Basophils % 1.0, Nucleated RBC % 0.0, Neutrophils # 3.2, Lymphocytes # 0.93 L, Monocytes # 0.7, Eosinophils # 0.2, Absolute Basophils 0.1 08/10/18 19:35: VBG pH 7.471 H 08/10/18 19:35: Sodium 136, Plasma Sodium 141, Potassium 4.0, Chloride 102, Carbon Dioxide 26.1, Anion Gap 11.9, BUN 19, Creatinine 1.19, Est GFR (Non-Af Amer) 48 L, BUN/Creatinine Ratio 16.0, Random Glucose 392 H, Calcium 8.6, Calcium Adj for Albumin 9.3, Total Bilirubin 0.6, AST 61 H, ALT 69 H, Alkaline Phosphatase 254 H, Troponin I Less than 0.017, Total Protein 7.1, Albumin 2.7 L, Serum Ketones Negative 08/10/18 19:35: Ammonia 61.0 H 08/10/18 19:45: Lactic Acid, Venous 2.7 H* 08/10/18 19:45: C-Reactive Prot, Quant 0.8 08/10/18 21:04: Urine Color Yellow, Urine Appearance Cloudy, Urine pH 6.5, Ur Specific Woodruff 1.010, Urine Protein Negative, Urine Glucose (UA) >=1000 H, Urine Ketones Negative, Urine Blood Negative, Urine Nitrate Negative, Urine Bilirubin Negative, Urine Urobilinogen Normal, Ur Leukocyte Esterase Negative, Urine RBC None seen, Urine WBC None seen, Ur Epithelial Cells None seen, Amorph ous Sediment Few - 1+, Urine Bacteria 2+ H, Urine Culture Comments No culture indicated 08/11/18 00:15: Lactic Acid, Venous 1.3 Discharge Location: Home Disposition: Home Health Service Home Health Agency: [facility] Home Health Condition: Stable Face to Face Encounter completed per CMS Guidelines: Yes Discharge Activity: Activity as tolerated Discharge Diet: Consistent carbs, Low salt Referrals: Kavya Jacinto MD [Primary Care Provider] - Complete Home Medications List: Complete Home Medication List: Duloxetine HCl [Cymbalta] 60 mg PO DAILY 10/20/16 Pravastatin Sodium [Pravachol] 20 mg PO DAILY 10/20/16 Aspirin 81 mg PO DAILY 01/12/18 Sennosides/Docusate Sodium [Senokot-S] 2 tab PO HS #30 tab 01/18/18 tramadol 50 mg tablet 50 mg PO Q6H PRN 03/26/18 melatonin 5 mg tablet 5 mg PO HS PRN 04/17/18 nadolol 20 mg tablet 10 mg PO DAILY tab 04/17/18 fludrocortisone 0.1 mg tablet 0.1 mg PO DAILY #90 tab 04/24/18 insulin lispro (U- 100) 100 unit/mL subcutaneous pen 10 unit SUBCUT AC #15 ml 05/15/18 polyethylene glycol 3350 17 gram/dose oral powder 17 g PO Q OTHER DAY #255 g 05/30/18 furosemide 40 mg tablet 40 mg PO DAILY #30 tab 06/07/18 spironolactone 25 mg tablet 50 mg PO DAILY #180 tab 06/11/18 pramipexole 0.5 mg tablet 1 mg PO HS #180 tab 06/15/18 acetaminophen 500 mg tablet 500 mg PO Q6H PRN 06/25/18 calcitonin (salmon) 200 unit/actuation nasal spray 1 spray INTRANASAL (ALT) DAILY #3.7 ml 07/09/18 Cholecalciferol (Vitamin D3) [Vitamin D3] 400 unit PO DAILY 08/10/18 Ciprofloxacin HCl 500 mg PO DAILY 08/10/18 Insulin Glargine,Hum.rec.anlog [Lantus] 20 unit SUB-Q TID 08/10/18 Lactobacillus Combination No.4 [Probiotic] 1 ea PO DAILY 08/10/18
[2018-08-11 11:28] VITALS: BP 134/68
[2018-08-11] MEDS ORDERED: INSULIN LISPRO 100 UNITS/ML VIAL SC SCH (12:00)
[2018-08-11] MEDS ORDERED: SENNOSIDES/DOCUSATE SODIUM 1 TAB TABLET PO SCH (21:00)
[2018-08-11] MEDS ORDERED: PRAMIPEXOLE DI-HCL 0.5 MG TABLET PO SCH ×2 (21:00)
== END 2018-08-11 11:58 | disposition home health service (06) ==
LOC: MS 19:08 → ER 19:08 → MS 23:30
PROVIDERS: ADMIT Family Medicine; ATTEND Internal Medicine
DX: Z23 Encounter for immunization; K70.30 Alcoholic cirrhosis of liver without ascites; E66.9 Obesity, unspecified; E11.9 Type 2 diabetes mellitus without complications; R53.1 Weakness; I10 Essential (primary) hypertension; R41.82 Altered mental status, unspecified
CPT/HCPCS: 36415; 71010; 71045; 71100; 80053; 81001; 82009; 82140; 82800; 83605; 84484; 85025; 86140; 87040; 90686; 93005; 96365; 96372; 96375; 97161; 99285; G0008; G0378; J2405

== ENCOUNTER 2018-10-16 14:30 | Observation (INO) ==
[2018-10-16] MEDS ORDERED: NORMAL SALINE 1,000 ML IV ONE (14:48)
[2018-10-16] MEDS ORDERED: DIPHTH,PERTUSS(ACELL),TET VAC 0.5 ML VIAL IM ONE (14:55)
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
[2018-10-16 15:20] LABS: Hemoglobin 10.6 gm/dL (12.5-16.0); Mean Cell Volume 86.5 fl (78-100); Mean Corpuscular Hemoglobin 28.6 pg (27-31); Mean Corpuscular Hgb Conc 33.1 g/dl (32-36); Mean Platelet Volume 11.1 fl (8-12.5); Neutrophil # 4.9 K/mm3 (1.3-6.0); Neutrophil % 78.7 % (42-75.0); Platelet Count 87 K/mm3 (150-450); Red Cell Distribution Width 13.2 % (11.5-14.0); White Blood Count 6.2 K/mm3 (4.0-10.5)
[2018-10-16 15:35] LABS: Troponin I Less than 0.017 ng/mL (0.00-0.10)
[2018-10-16 15:37] LABS: ALT 46 U/L (19-67); AST 46 U/L (0-48); Albumin * 2.8 gm/dl (3.4-5.0); Alkaline Phosphatase * 226 U/L (50-170); Anion Gap 12.8 mmol/L (6.8-13.8); BNP * 144 pg/mL (5-325); BUN/Creatinine Ratio 12.4 (9.0-21.6); Bilirubin, Total 1.6 mg/dL (0.0-1.1); Blood Urea Nitrogen 15 mg/dL (3-23); CK Total * 349 U/L (0-259); Ca. Corrected For Albumin 9.8 mg/dL (8.4-10.2); Calcium * 9.2 mg/dL (7.9-10.9); Carbon Dioxide 25.8 mmol/L (24-32.6); Chloride 100 mmol/L (97-106); Glucose * 459 mg/dL (70-110); Potassium 3.6 mmol/L (3.4-4.6); Sodium 135 mmol/L (132-142); Total Protein 7.6 gm/dL (6.2-8.2)
[2018-10-16 15:58] LABS: Urine Bilirubin Negative (NEGATIVE); Urine Blood 50 /ul (NEGATIVE); Urine Ketone 15 mg/dL (NEGATIVE); Urine Nitrite Negative (NEGATIVE); Urine Protein Negative (NEGATIVE); Urine Specific Gravity 1.015 SP.GR. (1.005-1.010); Urine Urobilinogen Normal (NORMAL)
[2018-10-16 16:10] LABS: Urine Appearance Cloudy (CLEAR); Urine Bacteria 2+; Urine Color Yellow; Urine Mucus Few - 1+; Urine WBC 0-5 /hpf (0-5)
[2018-10-16] MEDS ORDERED: INSULIN REGULAR, HUMAN 100 UNITS/ML VIAL SC SCH (18:00)
[2018-10-16] MEDS ORDERED: LACTULOSE 10 G/15 ML BTL PO ONE (18:00)
[2018-10-16] MEDS ORDERED: INSULIN REGULAR, HUMAN 100 UNITS/ML VIAL SC ONE (23:27)
[2018-10-17] MEDS ORDERED: ACETAMINOPHEN 500 MG TABLET PO PRN (00:15)
--- NOTE | 2018-10-17 00:18 | HP ---
Chief Complaint - Chief Complaint Date of Service: 10/16/18 Time of Service: 23:50 Chief Complaint: AMS, weakness History of Present Illness: 68-year-old female brought into the hospital by EMS after being found down. Patient states that she has felt weak over the last few weeks which progressively worsened. On Monday she states she bent over to do something which caused her to fall down and she was unable to pick herself up. She claims that she was down since Monday though she is confused and her appearance does not match her story. She did have a slightly elevated creatine phosphokinase at 349. She did have an elevated ammonia level in the ER at 70 with a history of alcoholic cirrhosis which could lead to so the confusion that she is having. Head CT scan of the ER showed no acute intracranial hemorrhage or mass-effect, essentially no acute processes identified. She was also found to be hyperglycemic with a glucose of 459 with glucose greater than 1000 and her urine. She also had a lactic acidosis of 2.2. Her urine also had positive blood, positive leukocyte esterase positive urine bacteria, negative nitrites and negative white blood cells. She denies any urinary symptoms at this time. There is a culture ordered by the ER that is pending. Patient was given a dose of lactulose in the ER as well as 20 units of regular insulin for her hyperglycemia. She was transferred to the floor in observation and was resting comfortably when I saw her. Her confusion appears to have resolved she denied any symptoms other than some toe pain that apparently happened when she fell. X-ray of the foot showed no apparent fractures seen on x-ray. Medical History (Last Reviewed 10/16/18 @ 20:50 by Alice Cowan RN) Alcoholic cirrhosis of liver Onset Date: 10/2015 CAD (coronary artery disease) Onset Date: 06/14/13 Depression Diabetes mellitus type II, uncontrolled Onset Date: 06/14/13 Esophageal varices Onset Date: 10/2015 Fracture, fibula Left Lateral malleous Fracture, humerus, proximal Onset Date: 07/18/16 Fracture, scapula Onset Date: 07/18/16 Glenoid cavity and neck of right scapula GI bleed Onset Date: 10/2015 Humerus surgical neck fracture Onset Date: ~2017 right Hypertension Influenza vaccine refused wants to receive at a later date. 07/26/18 Shoulder arthritis Onset Date: 11/28/16 Shoulder pain right Steatohepatitis Onset Date: 09/09/13 Surgical History: Surgical History (Last Reviewed 10/16/18 @ 20:50 by Alice Cowan RN) Cataract Onset Date: 06/30/08 Left H/O inguinal hernia repair Onset Date: 10/14/99 RIH H/O repair of left rotator cuff Onset Date: 05/05/04 History of liver biopsy Onset Date: 03/13/96 open-steatohepatitis History of open reduction and internal fixation (ORIF) procedure Onset Date: 04/21/16 Breder/ORIF R 3 part proximal humerus fracture Hx of hysterectomy, total Onset Date: 1983 Radius distal fracture Onset Date: 09/05/12 ORIF-right Stented coronary artery Onset Date: ~2006 2 Stents. [place], [place]. finger surgery Onset Date: 12/10/14 Dr. Gomez, left index finger arthrodesis PIP and excision of mucus History of colonoscopy Onset Date: 05/14/18 10/02/13 Bagan/villous adenoma, serrated adenoma, hyperplastic polyp. 05/14/18 Bagan-tubular adenoma. Recheck 5 yrs. History of esophagogastroduodenoscopy (EGD) Onset Date: 05/14/18 94,96,15,16,17, 08/24 2013 EGD with Variceal banding. 05/14/18 Bagan-clotest negative, mild benign reactive gastropathy/chemical gastritis. Hx laparoscopic cholecystectomy Onset Date: 06/2017 [facility] Family History: Family History (Last Reviewed 10/16/18 @ 20:50 by Alice Cowan RN) Brother , 5 brothers-all w/heart disease Diabetes Heart disease Brother Diabetes Parkinson disease Father , age 70's-bone cancer Diabetes Heart disease CHF (congestive heart failure) Cancer bone Sister Diabetes 1 sister Cancer 1 sister-lung cancer Mother , age 72-pancreatic cancer Cancer pancreatic CA Goiter Social History: Patient Lives/Resources Home Utilized Occupation Retired Preferred Language Mohawk Do you have any presybeterian or No cultural preference? Smoking Status Never smoker Have you smoked in the past 12 No months Do you dip or chew tobacco No Abuse History No History of abuse Psych History Hx of Depression,Currently on Meds Alcohol Use none Drug Use none (Last Updated 09/17/18 @ 14:39 by Isaac Mccurdy MD) No Social History Section defined Review Of Systems (GEN) - Review of Systems Generalized/Overall Review: Present: Fatigue EENTM: Present: No Symptoms Reported Respiratory: Absent: Cough, Shortness of Breath Cardiac: Absent: Chest Pain, Edema, Palpitations Abdominal: Absent: Nausea, Vomiting, Abdominal Pain Musculoskeletal: Present: Joint Pain Neurological: Present: Weakness, Other. Absent: Headache Immunizations: IMMUNIZATION HX Immunizations Up to Date Yes History of Influenza Vaccine No Hx Pneumococcal Vaccination Yes Allergies/Adverse Reactions: Allergies Allergy/AdvReac Type Severity Reaction Status Date / Time lisinopril Allergy dry cough Verified 09/17/18 13:12 lactose AdvReac Mild GAS Verified 09/17/18 13:12 latex AdvReac Mild RASH Verified 09/17/18 13:12 Home Medications: HOME MEDICATIONS calcitonin (salmon) 200 unit/actuation nasal spray 1 spray INTRANASAL (ALT) DAILY #3.7 ml 07/09/18 [Last Taken 08/09/18 21:00] acetaminophen 500 mg tablet 500 mg PO Q6H PRN #360 tab 08/17/18 [Last Taken Unknown] docusate calcium 240 mg capsule 240 - 480 mg PO DAILY PRN #180 cap MDD 480mg Daily 08/17/18 [Last Taken Unknown] insulin glargine (U- 100) 100 unit/mL subcutaneous solution 20 unit SUBCUT BID #36 ml 08/17/18 [Last Taken Unknown] insulin lispro (U- 100) 100 unit/mL subcutaneous pen See Rx Instructions SUBCUT AC #15 ml 08/17/18 [Last Taken Unknown] lactobacillus combination no.4 3 billion cell capsule 3,000 mmu cells PO DAILY #90 cap 08/17/18 [Last Taken Unknown] melatonin 3 mg tablet 3 mg PO HS PRN #90 tab 08/17/18 [Last Taken Unknown] polyethylene glycol 3350 17 gram/dose oral powder 17 g PO Q OTHER DAY #255 g 08/17/18 [Last Taken Unknown] tramadol 50 mg tablet 50 mg PO Q6H PRN #90 tab 08/17/18 [Last Taken Unknown] pramipexole 1 mg tablet 1 mg PO HS #90 tab 08/21/18 [Last Taken Unknown] spironolactone 50 mg tablet 50 mg PO DAILY #90 tab 08/21/18 [Last Taken Unknown] duloxetine 30 mg capsule,delayed release 60 mg PO DAILY #180 cap 09/03/18 [Last Taken Unknown] nystatin 100,000 unit/gram topical cream 1 applic TP BID #30 g 09/03/18 [Last Taken Unknown] aspirin 81 mg chewable tablet 81 mg PO DAILY #90 tab 09/13/18 [Last Taken Unknown] ciprofloxacin 500 mg tablet 500 mg PO DAILY #90 tab 09/13/18 [Last Taken Unknown] fludrocortisone 0.1 mg tablet 0.1 mg PO DAILY #90 tab 09/13/18 [Last Taken Unknown] furosemide 40 mg tablet 40 mg PO DAILY #90 tab 09/13/18 [Last Taken Unknown] pantoprazole 40 mg tablet,delayed release 40 mg PO DAILY #90 tab 09/13/18 [Last Taken Unknown] cholecalciferol (vitamin D3) 400 unit tablet 400 unit PO DAILY #90 tab 09/17/18 [Last Taken Unknown] pravastatin 20 mg tablet 20 mg PO DAILY #90 tab 09/17/18 [Last Taken Unknown] Exam - Exam Vital Signs: Vital Signs - Last Taken Temp 36.7 C 10/16/18 19:08 Pulse 98 10/16/18 19:08 Resp 16 10/16/18 19:08 BP 153/79 H 10/16/18 19:08 Pulse Ox 96 10/16/18 19:08 Constitutional: Present: Alert, Oriented x3, Cooperative, No distress Eye Exam: bilateral eye: normal inspection, EOMI Neck: Present: non-tender, full range of motion, supple Back Exam: Present: no CVA tenderness, no vertebral tenderness Respiratory: Present: chest non-tender, lungs clear, normal breath sounds Cardiovascular/Chest: Present: normal peripheral pulses, systolic murmur Abdomen: Present: Normal bowel sounds, soft, nontender /Rectal: Present: Exam deferred Extremity: Present: other Skin Exam: Present: normal color Neurologic: Present: alert, oriented x 3. Absent: facial droop, motor weakness, sensory deficit Appearance: Present: appropriate appearance, impaired insight Eye contact: Present: cooperative, good eye contact, normal speech Thoughts: Present: normal thought pattern, normal mood /affect Diagnostic Studies: Abnormal Lab Results 10/16/18 10/16/18 10/16/18 Range/Units 15:04 15:04 15:04 RBC 3.70 L (4.2-5.4) M/mm3 Hgb 10.6 L (12.5-16.0) gm/dL Hct 32.0 L (37.0-47.0) % Plt Count 87 L (150-450) K/mm3 Immature Gran % (Auto) 0.50 H (0.001-0.429) % Neutrophils % 78.7 H (42-75.0) % Lymphocytes % 8.6 L (20-51) % Monocytes % 10.4 H (0.0-9) % Lymphocytes # 0.53 L (1.5-3.5) k/mm3 Est GFR (Non-Af Amer) 47 L (60-130) mL/min Random Glucose 459 H (70-110) mg/dL Lactic Acid, Venous 2.2 H* (0.4-2.0) mmol/L Total Bilirubin 1.6 H (0.0-1.1) mg/dL Alkaline Phosphatase 226 H (50-170) U/L Ammonia (11-35) mcmol/L Creatine Kinase 349 H (0-259) U/L Albumin 2.8 L (3.4-5.0) gm/dl Urine Glucose (UA) (NEGATIVE) mg/dL Urine Blood (NEGATIVE) /ul Ur Leukocyte Esterase (NEGATIVE) /ul Urine RBC (0-5) /hpf Ur Epithelial Cells (0-5) /hpf Urine Bacteria (NONE) Urine Mucus (NONE) 10/16/18 10/16/18 Range/Units 15:43 16:30 RBC (4.2-5.4) M/mm3 Hgb (12.5-16.0) gm/dL Hct (37.0-47.0) % Plt Count (150-450) K/mm3 Immature Gran % (Auto) (0.001-0.429) % Neutrophils % (42-75.0) % Lymphocytes % (20-51) % Monocytes % (0.0-9) % Lymphocytes # (1.5-3.5) k/mm3 Est GFR (Non-Af Amer) (60-130) mL/min Random Glucose (70-110) mg/dL Lactic Acid, Venous (0.4-2.0) mmol/L Total Bilirubin (0.0-1.1) mg/dL Alkaline Phosphatase (50-170) U/L Ammonia 70.0 H (11-35) mcmol/L Creatine Kinase (0-259) U/L Albumin (3.4-5.0) gm/dl Urine Glucose (UA) >=1000 H (NEGATIVE) mg/dL Urine Blood 50 H (NEGATIVE) /ul Ur Leukocyte Esterase 75 H (NEGATIVE) /ul Urine RBC 5-10 H (0-5) /hpf Ur Epithelial Cells 5-10 H (0-5) /hpf Urine Bacteria 2+ H (NONE) Urine Mucus Few - 1+ H (NONE) Laboratory Results WBC 6.2 K/mm3 (4.0-10.5) 10/16/18 15:04 RBC 3.70 M/mm3 (4.2-5.4) L 10/16/18 15:04 Hgb 10.6 gm/dL (12.5-16.0) L 10/16/18 15:04 Hct 32.0 % (37.0-47.0) L 10/16/18 15:04 MCV 86.5 fl (78-100) 10/16/18 15:04 MCH 28.6 pg (27-31) 10/16/18 15:04 MCHC 33.1 g/dl (32-36) 10/16/18 15:04 RDW 13.2 % (11.5-14.0) 10/16/18 15:04 Plt Count 87 K/mm3 (150-450) L 10/16/18 15:04 MPV 11.1 fl (8-12.5) 10/16/18 15:04 Immature Gran % (Auto) 0.50 % (0.001-0.429) H 10/16/18 15:04 Immature Gran # (Auto) 0.03 K/mm3 (0.000-0.0310) 10/16/18 15:04 Neutrophils % 78.7 % (42-75.0) H 10/16/18 15:04 Lymphocytes % 8.6 % (20-51) L 10/16/18 15:04 Monocytes % 10.4 % (0.0-9) H 10/16/18 15:04 Eosinophils % 1.0 % (0.0-3.0) 10/16/18 15:04 Basophils % 0.8 % (0.0-1.0) 10/16/18 15:04 Nucleated RBC % 0.0 k/mm3 (0-1) 10/16/18 15:04 Neutrophils # 4.9 K/mm3 (1.3-6.0) 10/16/18 15:04 Lymphocytes # 0.53 k/mm3 (1.5-3.5) L 10/16/18 15:04 Monocytes # 0.6 k/mm3 (0.0-1.0) 10/16/18 15:04 Eosinophils # 0.1 k/mm3 (0.0-0.7) 10/16/18 15:04 Absolute Basophils 0.1 k/mm3 (0.0-0.1) 10/16/18 15:04 Sodium 135 mmol/L (132-142) 10/16/18 15:04 Plasma Sodium 141 mmol/L (130-142) 10/16/18 15:04 Potassium 3.6 mmol/L (3.4-4.6) 10/16/18 15:04 Chloride 100 mmol/L (97-106) 10/16/18 15:04 Carbon Dioxide 25.8 mmol/L (24-32.6) 10/16/18 15:04 Anion Gap 12.8 mmol/L (6.8-13.8) 10/16/18 15:04 BUN 15 mg/dL (3-23) 10/16/18 15:04 Creatinine 1.21 mg/dL (0.4-1.4) 10/16/18 15:04 Est GFR (Non-Af Amer) 47 mL/min (60-130) L 10/16/18 15:04 BUN/Creatinine Ratio 12.4 (9.0-21.6) 10/16/18 15:04 Random Glucose 459 mg/dL (70-110) H 10/16/18 15:04 Lactic Acid, Venous 2.2 mmol/L (0.4-2.0) H* 10/16/18 15:04 Calcium 9.2 mg/dL (7.9-10.9) 10/16/18 15:04 Calcium Adj for Albumin 9.8 mg/dL (8.4-10.2) 10/16/18 15:04 Total Bilirubin 1.6 mg/dL (0.0-1.1) H 10/16/18 15:04 AST 46 U/L (0-48) 10/16/18 15:04 ALT 46 U/L (19-67) 10/16/18 15:04 Alkaline Phosphatase 226 U/L (50-170) H 10/16/18 15:04 Ammonia 70.0 mcmol/L (11-35) H 10/16/18 16:30 Creatine Kinase 349 U/L (0-259) H 10/16/18 15:04 Troponin I Less than 0.017 ng/mL (0.00-0.10) 10/16/18 15:04 B-Natriuretic Peptide 144 pg/mL (5-325) 10/16/18 15:04 Total Protein 7.6 gm/dL (6.2-8.2) 10/16/18 15:04 Albumin 2.8 gm/dl (3.4-5.0) L 10/16/18 15:04 Urine Color Yellow 10/16/18 15:43 Urine Appearance Cloudy (CLEAR) 10/16/18 15:43 Urine pH 6.0 pH (5.0-7.0) 10/16/18 15:43 Ur Specific [place] 1.015 SP.GR. (1.005-1.010) 10/16/18 15:43 Urine Protein Negative mg/dL (NEGATIVE) 10/16/18 15:43 Urine Glucose (UA) >=1000 mg/dL (NEGATIVE) H 10/16/18 15:43 Urine Ketones 15 mg/dL (NEGATIVE) 10/16/18 15:43 Urine Blood 50 /ul (NEGATIVE) H 10/16/18 15:43 Urine Nitrate Negative (NEGATIVE) 10/16/18 15:43 Urine Bilirubin Negative mg/dl (NEGATIVE) 10/16/18 15:43 Urine Urobilinogen Normal EU/dl (NORMAL) 10/16/18 15:43 Ur Leukocyte Esterase 75 /ul (NEGATIVE) H 10/16/18 15:43 Urine RBC 5-10 /hpf (0-5) H 10/16/18 15:43 Urine WBC 0-5 /hpf (0-5) 10/16/18 15:43 Ur Epithelial Cells 5-10 /hpf (0-5) H 10/16/18 15:43 Urine Bacteria 2+ (NONE) H 10/16/18 15:43 Urine Mucus Few - 1+ (NONE) H 10/16/18 15:43 Urine Culture Comments Culture to follow 10/16/18 15:43 Serum Ketones Negative (NEGATIVE) 10/16/18 16:13 Assessment/Plan - Narrative Narrative: Patient placed under observation to the [facility] floor for altered mental status which appears to have resolved. She is sleeping comfortably in bed when I came to examine her. She is a&o x3 and has no neurological deficits. Patient does endorse weakness which appears to be more from deconditioning than anything else. Patient would benefit from physical therapy and occupation therapy, this has been ordered. We will recheck an ammonia level tomorrow morning due to her elevated ammonia levels. For insulin-dependent diabetes: Restarted her long-acting insulin to be started in the morning. Sliding scale ordered, with Accu-Cheks q. before meals at bedtime. Will monitor. SCDs for DVT prophylaxis ordered, to be warm on bed. Consistent carb diet ordered. Chronic medications have also been restarted. Vital signs are stable, nurse to call with any questions or concerns. - Assessment/Plan (1) Hyperammonemia Problem: Acute (2) Confusion Problem: Acute (3) Liver cirrhosis, alcoholic Problem: Chronic Qualifiers: (4) Hypoglycemia due to type 2 diabetes mellitus Problem: Chronic (5) Diabetes mellitus type 2 in obese Problem: Chronic (6) Physical deconditioning Problem: Acute
[2018-10-17] MEDS: INSULIN REGULAR, HUMAN 100 UNITS/ML VIAL SC SCH ×3 (06:45→17:18)
[2018-10-17] MEDS ORDERED: ASPIRIN 81 MG TAB.CHEW PO SCH (09:00)
[2018-10-17] MEDS ORDERED: PANTOPRAZOLE SODIUM 40 MG TABLET.EC PO SCH (09:00)
[2018-10-17] MEDS ORDERED: FUROSEMIDE 40 MG TABLET PO SCH (09:00)
[2018-10-17] MEDS ORDERED: LACTULOSE 10 G/15 ML BTL PO SCH (09:00)
[2018-10-17] MEDS ORDERED: SIMVASTATIN 10 MG TABLET PO SCH ×2 (09:00→21:00)
[2018-10-17] MEDS ORDERED: DULoxetine HCL 30 MG CAPSULE.SA PO SCH (09:00)
[2018-10-17] MEDS ORDERED: INSULIN GLARGINE,HUM.REC.ANLOG 100 UNITS/ML VIAL SC SCH (09:00)
--- NOTE | 2018-10-17 14:41 | DS ---
(1) Confusion Diagnosis(s): due to hyperammonemia from UTI Problem: Resolved (2) Hyperammonemia Diagnosis(s): improved. had another big BM this morning. Problem: Acute (3) Generalized weakness Diagnosis(s): PT/OT consulted, from deconditioning. Problem: Chronic (4) Physical deconditioning Diagnosis(s): acute on chronic illness. Problem: Acute (5) CAD (coronary artery disease) Problem: Chronic Qualifiers: Coronary Disease-Associated Artery/Lesion type: [place] artery [place] vs. transplanted heart: [place] heart Associated angina: without angina Qualified Code(s): I25.10 - Atherosclerotic heart disease of [place] coronary artery without angina pectoris (6) Cirrhosis of liver Diagnosis(s): due to RITCHIE Problem: Chronic Qualifiers: Hepatic cirrhosis type: other cirrhosis Qualified Code(s): K74.69 - Other cirrhosis of liver (7) Diabetes mellitus type 2 in nonobese Problem: Chronic (8) Diabetic neuropathy Problem: Chronic Qualifiers: Diabetes mellitus type: type 2 Diabetes mellitus complication detail: diabetic polyneuropathy Qualified Code(s): E11.42 - Type 2 diabetes mellitus with diabetic polyneuropathy (9) HTN (hypertension) Problem: Chronic Qualifiers: Hypertension type: essential hypertension Qualified Code(s): I10 - Essential (primary) hypertension Description of Stay: Fifi Washburn, is a 68-year-old female brought into the hospital on 10/16/2018 by EMS after being found down. The patient stated that she has felt weak over the last few weeks which progressively worsened. 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 She claimed that she was down since Monday. She was, however, confused and her appearance did not match her story. Her elevated creatine phosphokinase at 349 and her elevated ammonia level was 70 . She has a history of liver cirrhosis due to RITCHIE which could have made her confused . Her Head CT scan showed no acute intracranial hemorrhage or mass-effect, essentially no acute processes identified. She was also found to be hyperglycemic with a glucose of 459 with glucose greater than 1000 and her urine. She also had a lactic acidosis of 2.2. Her urine also had positive blood, positive leukocyte esterase positive urine bacteria, negative nitrites and negative white blood cells. She admitted to burning sensation when she urinated prior to her fall. She was given a dose of lactulose in the ER as well as 20 units of regular insulin for her hyperglycemia. She was transferred to the floor in observation. Her confusion appears to have resolved by the time the heavy antiarmor weapons infantryman doctor saw her. She denied any symptoms other than some toe X-ray of the foot showed no apparent fractures seen on x-ray. This morning , she was AAO x 3 but only had 1 BM with her lactulose. We gave her another dose of lactulose and she had a big BM. She also got 1 gram of Rocephin. She was seen by PT for her deconditioning and will have HH care at home. She is homebound because of her physical decondtioning and multiple medical problems . The need for care home care is for monitoring of vital signs, medication management and the need for PT is for her physical deconditioning, increasing her strengthening exercises to increase her activities of daily living. The need of home health care skilled services is directly related to the time spent face to face with the person. Procedures Performed: none Results and Findings: Pending Mircobiology Results 10/16/18 15:56 Urine,Clean Catch Urine Culture - Preliminary Ruling Out Pathogen Lab Pending Results 10/16/18 15:04: WBC 6.2, RBC 3.70 L, Hgb 10.6 L, Hct 32.0 L, MCV 86.5, MCH 28.6, MCHC 33.1, RDW 13.2, Plt Count 87 L, MPV 11.1, Immature Gran % (Auto) 0.50 H, Immature Gran # (Auto) 0.03, Neutrophils % 78.7 H, Lymphocytes % 8.6 L, Monocy isrrael % 10.4 H, Eosinophils % 1.0, Basophils % 0.8, Nucleated RBC % 0.0, Neutrophils # 4.9, Lymphocytes # 0.53 L, Monocytes # 0.6, Eosinophils # 0.1, Absolute Basophils 0.1 10/16/18 15:04: Sodium 135, Plasma Sodium 141, Potassium 3.6, Chloride 100, Carbon Dioxide 25.8, Anion Gap 12.8, BUN 15, Creatinine 1.21, Est GFR (Non-Af Amer) 47 L, BUN/Creatinine Ratio 12.4, Random Glucose 459 H, Calcium 9.2, Calcium Adj for Albumin 9.8, Total Bilirubin 1.6 H, AST 46, ALT 46, Alkaline Phosphatase 226 H, Creatine Kinase 349 H, Troponin I Less than 0.017, B- Natriuretic Peptide 144, Total Protein 7.6, Albumin 2.8 L 10/16/18 15:04: Lactic Acid, Venous 2.2 H* 10/16/18 15:43: Urine Color Yellow, Urine Appearance Cloudy, Urine pH 6.0, Ur Specific [place] 1.015, Urine Protein Negative, Urine Glucose (UA) >=1000 H, Urine Ketones 15, Urine Blood 50 H, Urine Nitrate Negative, Urine Bilirubin Negative, Urine Urobilinogen Normal, Ur Leukocyte Esterase 75 H, Urine RBC 5-10 H, Urine WBC 0-5, Ur Epithelial Cells 5-10 H, Urine Bacteria 2+ H, Urine Mucus Few - 1+ H, Urine Culture Comments Culture to follow 10/16/18 16:13: Serum Ketones Negative 10/16/18 16:30: Ammonia 70.0 H 10/17/18 00:25: Lactic Acid, Venous 1.6 10/17/18 07:05: Ammonia 55.0 H Discharge Location: Home Disposition: Home Health Service Home Health Agency: [facility] Health Condition: Stable Face to Face Encounter completed per [facility] Guidelines: Yes Discharge Activity: Activity as tolerated Discharge Diet: Consistent carbs, Low salt [facility] Therapy: Physicial Therapy Referrals: Kavya Jacinto MD [Primary Care Provider] - Additional Patient Instructions (free text): -Please make TCM appointment unless penitentiary discharge. Thank you! Eli @ [phone]. [facility] new at discharge please call and fax discharge information. Follow up with PCP in 2 weeks. Prescriptions (Any new or edited meds): Ciprofloxacin HCl 500 mg PO BID #90 tab Lactulose [Enulose] 20 g PO BID #1 btl Complete Home Medications List: Complete Home Medication List: acetaminophen 500 mg tablet 500 mg PO Q6H PRN #360 tab 08/17/18 docusate calcium 240 mg capsule 240 - 480 mg PO DAILY PRN #180 cap MDD 480mg Daily 08/17/18 pramipexole 1 mg tablet 1 mg PO HS #90 tab 08/21/18 spironolactone 50 mg tablet 50 mg PO DAILY #90 tab 08/21/18 duloxetine 30 mg capsule,delayed release 60 mg PO DAILY #180 cap 09/03/18 aspirin 81 mg chewable tablet 81 mg PO DAILY #90 tab 09/13/18 fludrocortisone 0.1 mg tablet 0.1 mg PO DAILY #90 tab 09/13/18 furosemide 40 mg tablet 40 mg PO DAILY #90 tab 09/13/18 pantoprazole 40 mg tablet,delayed release 40 mg PO DAILY #90 tab 09/13/18 cholecalciferol (vitamin D3) 400 unit tablet 400 unit PO DAILY #90 tab 09/17/18 pravastatin 20 mg tablet 20 mg PO DAILY #90 tab 09/17/18 Ciprofloxacin HCl 500 mg PO BID #90 tab 10/17/18 Insulin Glargine,Hum.rec.anlog [Lantus] 30 unit SQ BID 10/17/18 Lactulose [Enulose] 20 g PO BID #1 btl 10/17/18
[2018-10-17] MEDS ORDERED: PRAMIPEXOLE DI-HCL 0.5 MG TABLET PO SCH (18:00)
[2018-10-18 01:41] VITALS: BP 109/52
[2018-10-18] MEDS ORDERED: POLYETHYLENE GLYCOL 3350 119 GM BTL PO SCH (09:00)
== END 2018-10-17 18:37 | disposition home health service (06) ==
LOC: ER 14:30 → MS 14:30
PROVIDERS: ADMIT Family Medicine; ATTEND Internal Medicine
CPT/HCPCS: 36415; 70450; 73630; 80053; 81001; 82009; 82140; 82550; 83519; 83605; 83880; 84484; 85025; 87086; 87106; 90471; 90715; 96361; 96365; 96366; 96372; 97110; 97116; 97161; 97165; 99285; G0378

== ENCOUNTER 2018-11-03 00:35 | Observation (INO) ==
[2018-11-03] MEDS ORDERED: MORPHINE SULFATE 4 MG/ML SYRG IV ONE (01:10)
[2018-11-03 01:18] LABS: Hematocrit 32.7 % (37.0-47.0); Hemoglobin 10.1 gm/dL (12.5-16.0); Mean Cell Volume 89.3 fl (78-100); Mean Corpuscular Hemoglobin 27.6 pg (27-31); Mean Corpuscular Hgb Conc 30.9 g/dl (32-36); Mean Platelet Volume 10.5 fl (8-12.5); Platelet Count 162 K/mm3 (150-450); Red Blood Count 3.66 M/mm3 (4.2-5.4); Red Cell Distribution Width 14.9 % (11.5-14.0); White Blood Count 7.4 K/mm3 (4.0-10.5)
--- NOTE | 2018-11-03 02:00 | ERNOTE ---
Back Pain ER HPI Date of Service: 11/03/18 Presenting Symptoms: injury/pain to back Time Seen by Provider: 11/03/18 00:59 Source: patient, EMS Exam Limitations: no limitations Immunizations: IMMUNIZATION HX Immunizations Up to Date Yes History of Influenza Vaccine Yes Hx Pneumococcal Vaccination Yes Allergies/Adverse Reactions: Allergies lactose Adverse Reaction (Mild, Verified 11/03/18 00:45) GAS latex Adverse Reaction (Mild, Verified 11/03/18 00:45) RASH lisinopril Adverse Reaction (Mild, Verified 11/03/18 00:45) dry cough Home Medications: HOME MEDICATIONS acetaminophen 500 mg tablet 500 mg PO Q6H PRN #360 tab 08/17/18 [Last Taken Unknown] docusate calcium 240 mg capsule 240 - 480 mg PO DAILY PRN #180 cap MDD 480mg Daily 08/17/18 [Last Taken Unknown] pramipexole 1 mg tablet 1 mg PO HS #90 tab 08/21/18 [Last Taken Unknown] spironolactone 50 mg tablet 50 mg PO DAILY #90 tab 08/21/18 [Last Taken Unknown] duloxetine 30 mg capsule,delayed release 60 mg PO DAILY #180 cap 09/03/18 [Last Taken Unknown] aspirin 81 mg chewable tablet 81 mg PO DAILY #90 tab 09/13/18 [Last Taken Unknown] fludrocortisone 0.1 mg tablet 0.1 mg PO DAILY #90 tab 09/13/18 [Last Taken Unknown] furosemide 40 mg tablet 40 mg PO DAILY #90 tab 09/13/18 [Last Taken Unknown] pantoprazole 40 mg tablet,delayed release 40 mg PO DAILY #90 tab 09/13/18 [Last Taken Unknown] cholecalciferol (vitamin D3) 400 unit tablet 400 unit PO DAILY #90 tab 09/17/18 [Last Taken Unknown] pravastatin 20 mg tablet 20 mg PO DAILY #90 tab 09/17/18 [Last Taken Unknown] Insulin Glargine,Hum.rec.anlog [Lantus] 30 unit SQ BID 10/17/18 [Last Taken Unknown] Lactulose [Enulose] 20 g PO BID #1 btl 10/17/18 [Last Taken Unknown] ciprofloxacin 500 mg tablet 500 mg PO DAILY #90 tab 10/22/18 [Last Taken Unknown] Narrative: patient had recent fall with dx of cervical disc protrusion, arrives with cervical coller in place, today c/o lumbar back pain, no new injury Timing: Reports: constant, getting worse Quality/Severity: Reports: moderate, dullness, fullness, stabbing Activities at Onset: Reports: none Recent Injury?: Reports: yes, possibly Possible Precipitating Factor: Reports: none Modifying Factors - (Improves): Reports: nothing Modifying Factors - (Worsens): Reports: movement to right, movement to left, movement flexion Associated Symptoms: Reports: difficulty walking Prior Treament: Reports: recently seen, treated by physician, recently hospitalized Review of Systems - Review of Systems Constitutional: Present: See HPI EYE: Present: no symptoms reported, see HPI ENT: Present: no symptoms reported Respiratory: Present: no symptoms reported Cardiology: Present: no symptoms reported Gastrointestinal/Abdominal: Present: no symptoms reported Genitourinary: Present: no symptoms reported Musculoskeletal: Present: See HPI, back pain, muscle pain, muscle stiffness, other - pain localized to lumbar region Skin: Present: no symptoms reported Neurological: Present: no symptoms reported Endocrine: Present: no symptoms reported Hematologic/Lymphatic: Present: no symptoms reported Psych: Present: no symptoms reported Medical History (Last Reviewed 11/03/18 @ 00:45 by Gilda Rankin RN) Alcoholic cirrhosis of liver Onset Date: 10/2015 CAD (coronary artery disease) Onset Date: 06/14/13 Depression Diabetes mellitus type II, uncontrolled Onset Date: 06/14/13 Esophageal varices Onset Date: 10/2015 Fracture, fibula Left Lateral malleous Fracture, humerus, proximal Onset Date: 07/18/16 Fracture, scapula Onset Date: 07/18/16 Glenoid cavity and neck of right scapula GI bleed Onset Date: 10/2015 Humerus surgical neck fracture Onset Date: ~2017 right Hypertension Influenza vaccine refused wants to receive at a later date. 07/26/18 Shoulder arthritis Onset Date: 11/28/16 Shoulder pain right Steatohepatitis Onset Date: 09/09/13 Surgical History: Surgical History (Last Reviewed 11/03/18 @ 00:45 by Gilda Rankin RN) Cataract Onset Date: 06/30/08 Left H/O inguinal hernia repair Onset Date: 10/14/99 R[facility] H/O repair of left rotator cuff Onset Date: 05/05/04 History of liver biopsy Onset Date: 03/13/96 open-steatohepatitis History of open reduction and internal fixation (ORIF) procedure Onset Date: 04/21/16 Breder/ORIF R 3 part proximal humerus fracture Hx of hysterectomy, total Onset Date: 1983 Radius distal fracture Onset Date: 09/05/12 ORIF-right Stented coronary artery Onset Date: ~2006 2 Stents. [place]. finger surgery Onset Date: 12/10/14 Dr. Gomez, left index finger arthrodesis PIP and excision of mucus History of colonoscopy Onset Date: 05/14/18 10/02/13 Bagan/villous adenoma, serrated adenoma, hyperplastic polyp. 05/14/18 Bagan-tubular adenoma. Recheck 5 yrs. History of esophagogastroduodenoscopy (EGD) Onset Date: 05/14/18 94,96,15,16,17, 08/24 2013 EGD with Variceal banding. 05/14/18 Bagan-clotest negative, mild benign reactive gastropathy/chemical gastritis. Hx laparoscopic cholecystectomy Onset Date: 06/2017 [facility] Family History: Family History (Last Reviewed 11/03/18 @ 00:45 by Gilda Rankin RN) Brother , 5 brothers-all w/heart disease Diabetes Heart disease Brother Diabetes Parkinson disease Father , age 70's-bone cancer Diabetes Heart disease CHF (congestive heart failure) Cancer bone Sister Diabetes 1 sister Cancer 1 sister-lung cancer Mother , age 72-pancreatic cancer Cancer pancreatic CA Goiter Social History: Preferred Language Anguillan Do you have any sikhism or No cultural preference? Smoking Status Never smoker Abuse History No History of abuse Psych History Hx of Depression,Currently on Meds Alcohol Use none Drug Use none (Last Updated 09/17/18 @ 14:39 by Isaac Mccurdy MD) No Social History Section defined Physical Exam - Physical Exam General Appearance: Present: moderate distress, anxious Head Exam: Present: normal inspection, no evidence of injury Eye Exam: Normal inspection: bilateral, PERRL: bilateral, EOMI: bilateral Ears, Nose, Throat: Present: normal ENT inspection, normal pharynx Neck: Present: normal inspection, nontender Respiratory: Present: no respiratory distress, normal breath sounds, no accessory muscle use, chest nontender, lungs clear Cardiovascular/Chest: Present: regular rate, rhythm, no murmur, normal peripheral pulses Gastrointestinal/Abdominal: Present: normal bowel sounds, nontender, nondistended, soft, no organomegaly Back Exam: Present: vertebral tenderness, decreased range of motion, muscle spasm, other - pain and muxscle spasm to mid lumbar spine, no deformity noted Extremity Exam: Present: normal inspection, non-tender, normal range of motion, no edema Neurological Exam: Present: alert, oriented, normal mood/affect, no motor/sensory deficits Skin Exam: Present: normal color, warm/dry Lymphatic Exam: Present: no adenopathy Progress - Date and Time Seen: Date and Time: 11/03/18 02:33 patient improved somewhat, persistant low back pain, ct reveals sub acute findings, case discussed with dr carter accepted to admit to observatiion for pain management - Results and Orders Patient's Lab Results:: I have reviewed the patient's lab results. - Vital Signs Patient's Vital Signs:: I have reviewed the patient's vital signs. Vital Signs: Vital Signs 11/03/18 00:36 Temperature 36.5 C Pulse Rate 87 Respiratory Rate 20 Blood Pressure 117/55 O2 Sat by Pulse Oximetry 97 - CT/Ultrasound CT/Ultrasound Narrative: ct lumbar spine sub acute findings of degenerative process and possible fracture - Progress/Reassessment Chief Complaint: Back Pain Progress:: Improved - Transfer of Care Expected Disposition: Admit Plan - Plan Plan: to admit to observation Departure Clinical Impression: Low back pain - Departure Disposition: Still a patient Condition: Stable Referrals: Kavya Jacinto MD [Primary Care Provider] -
[2018-11-03 02:03] LABS: Albumin * 2.1 gm/dl (3.4-5.0); Anion Gap 11.8 mmol/L (6.8-13.8); BUN/Creatinine Ratio 10.6 (9.0-21.6); Bilirubin, Total 0.7 mg/dL (0.0-1.1); Ca. Corrected For Albumin 9.2 mg/dL (8.4-10.2); Carbon Dioxide 25.5 mmol/L (24-32.6); Potassium 3.3 mmol/L (3.4-4.6); Total Protein 7.3 gm/dL (6.2-8.2)
[2018-11-03] MEDS: MORPHINE SULFATE 2 MG/ML DISP.SYRIN IV PRN ×2 (03:53→05:29)
[2018-11-03] MEDS: oxyCODONE HCL 5 MG TABLET PO PRN ×2 (14:21→19:05)
--- NOTE | 2018-11-03 15:33 | HP ---
Chief Complaint - Chief Complaint Date of Service: 11/03/18 Time of Service: 09:40 Chief Complaint: Low back pain, Weakness, History of Present Illness: Fifi Washburn is a 68-year-old female who presented to ER with severe low back pain. She has a history of cervical neck pain with a protruding cervical disc but she presented today with low back pain. It is incapacitating and she is unable to stand and walk or care for herself at home and so was admitted for improved pain control. Medical History (Last Reviewed 11/03/18 @ 03:24 by Zaira Byers, JI) Alcoholic cirrhosis of liver Onset Date: 10/2015 CAD (coronary artery disease) Onset Date: 06/14/13 Depression Diabetes mellitus type II, uncontrolled Onset Date: 06/14/13 Esophageal varices Onset Date: 10/2015 Fracture, fibula Left Lateral malleous Fracture, humerus, proximal Onset Date: 07/18/16 Fracture, scapula Onset Date: 07/18/16 Glenoid cavity and neck of right scapula GI bleed Onset Date: 10/2015 Humerus surgical neck fracture Onset Date: ~2017 right Hypertension Influenza vaccine refused wants to receive at a later date. 07/26/18 Shoulder arthritis Onset Date: 11/28/16 Shoulder pain right Steatohepatitis Onset Date: 09/09/13 Surgical History: Surgical History (Last Reviewed 11/03/18 @ 03:24 by Zaira Byers RN) Cataract Onset Date: 06/30/08 Left H/O inguinal hernia repair Onset Date: 10/14/99 RIH H/O repair of left rotator cuff Onset Date: 05/05/04 History of liver biopsy Onset Date: 03/13/96 open-steatohepatitis History of open reduction and internal fixation (ORIF) procedure Onset Date: 04/21/16 Breder/ORIF R 3 part proximal humerus fracture Hx of hysterectomy, total Onset Date: 1983 Radius distal fracture Onset Date: 09/05/12 ORIF-right Stented coronary artery Onset Date: ~2006 2 Stents. [place]. finger surgery Onset Date: 12/10/14 Dr. Gomez, left index finger arthrodesis PIP and excision of mucus History of colonoscopy Onset Date: 05/14/18 10/02/13 Bagan/villous adenoma, serrated adenoma, hyperplastic polyp. 05/14/18 Bagan-tubular adenoma. Recheck 5 yrs. History of esophagogastroduodenoscopy (EGD) Onset Date: 05/14/18 94,96,15,16,17, 08/24 2013 EGD with Variceal banding. 05/14/18 Bagan-clotest negative, mild benign reactive gastropathy/chemical gastritis. Hx laparoscopic cholecystectomy Onset Date: 06/2017 [facility] Family History: Family History (Last Reviewed 11/03/18 @ 03:24 by Zaira Byers RN) Brother , 5 brothers-all w/heart disease Diabetes Heart disease Brother Diabetes Parkinson disease Father , age 70's-bone cancer Diabetes Heart disease CHF (congestive heart failure) Cancer bone Sister Diabetes 1 sister Cancer 1 sister-lung cancer Mother , age 72-pancreatic cancer Cancer pancreatic CA Goiter Social History: Patient Lives/Resources [employer] Utilized Occupation retired Preferred Language Nicaraguan Do you have any faith or No cultural preference? Smoking Status Never smoker Have you smoked in the past 12 No months Abuse History No History of abuse Psych History Hx of Depression,Currently on Meds Alcohol Use none Drug Use none (Last Updated 09/17/18 @ 14:39 by Isaac Mccurdy MD) No Social History Section defined Review Of Systems (GEN) - Review of Systems Generalized/Overall Review: Present: Weakness EENTM: Present: No Symptoms Reported Respiratory: Present: No Symptoms Reported Cardiac: Present: No Symptoms Reported Abdominal: Present: No Symptoms Reported Genitourinary: Present: No Symptoms Reported Musculoskeletal: Present: Back Pain - Low back Neurological: Present: No Symptoms Reported, Weakness Skin: Present: No Symptoms Reported Endocrine: Present: No Symptoms Reported Immunizations: IMMUNIZATION HX Immunizations Up to Date Yes History of Influenza Vaccine Yes Hx Pneumococcal Vaccination Yes Allergies/Adverse Reactions: Allergies Allergy/AdvReac Type Severity Reaction Status Date / Time lactose AdvReac Mild GAS Verified 11/03/18 03:21 latex AdvReac Mild RASH Verified 11/03/18 03:21 lisinopril AdvReac Mild dry cough Verified 11/03/18 03:21 Home Medications: HOME MEDICATIONS duloxetine 30 mg capsule,delayed release 60 mg PO DAILY #180 cap 09/03/18 [Last Taken Unknown] aspirin 81 mg chewable tablet 81 mg PO DAILY #90 tab 09/13/18 [Last Taken Unknown] fludrocortisone 0.1 mg tablet 0.1 mg PO DAILY #90 tab 09/13/18 [Last Taken Unknown] furosemide 40 mg tablet 40 mg PO DAILY #90 tab 09/13/18 [Last Taken Unknown] pantoprazole 40 mg tablet,delayed release 40 mg PO DAILY #90 tab 09/13/18 [Last Taken Unknown] pravastatin 20 mg tablet 20 mg PO DAILY #90 tab 09/17/18 [Last Taken Unknown] Insulin Glargine,Hum.rec.anlog [Lantus] 30 unit SQ BID 10/17/18 [Last Taken Unknown] ciprofloxacin 500 mg tablet 500 mg PO DAILY #90 tab 10/22/18 [Last Taken Unknown] Acetaminophen 325 mg PO Q4H PRN 11/03/18 [Last Taken Unknown] Cholecalciferol (Vitamin D3) [Vitamin D3] 1,000 unit PO DAILY 11/03/18 [Last Taken Unknown] Insulin Aspart [Novolog] 16 units SC TIDWM 11/03/18 [Last Taken Unknown] Lactulose [Enulose] 45 ml PO BID 11/03/18 [Last Taken Unknown] Nadolol 20 mg PO DAILY 11/03/18 [Last Taken Unknown] Pramipexole Di-HCl [Pramipexole Dihydrochloride] 0.25 mg PO HS 11/03/18 [Last Taken Unknown] Rifaximin [Xifaxan] 550 mg PO BID 11/03/18 [Last Taken Unknown] Spironolactone 25 mg PO DAILY 11/03/18 [Last Taken Unknown] oxyCODONE HCL [Oxycodone] 5 mg PO BID PRN 11/03/18 [Last Taken Unknown] Exam - Exam Vital Signs: Vital Signs - Last Taken Temp 36.5 C 11/03/18 14:36 Pulse 79 11/03/18 14:36 Resp 16 11/03/18 14:36 BP 112/54 11/03/18 14:36 Pulse Ox 100 11/03/18 14:36 Constitutional: Present: Alert, Oriented x3, Cooperative, Well developed, Well nourished, No distress ENT Exam: Present: normal ENT inspection, hearing grossly normal Eye Exam: bilateral eye: normal inspection, PERRL, EOMI Neck: Present: limited range of motion, stiff neck, tender lateral Back Exam: Present: normal inspection, no vertebral tenderness, vertebral tenderness Respiratory: Present: chest non-tender, lungs clear, normal breath sounds, no respiratory distress, no accessory muscle use Cardiovascular/Chest: Present: normal peripheral pulses, regular rate, rhythm, no chest tenderness, no edema, no gallop, no JVD, no murmur, no rub Peripheral Pulses: carotid (R): 2+, carotid (L): 2+, radial (R): 2+, radial (L): 2+ Abdomen: Present: Normal bowel sounds, soft, nontender, nondistended /Rectal: Present: Exam deferred Extremity: Present: normal range of motion, non-tender, normal inspection, no pedal edema, no calf tenderness, normal capillary refill, pelvis stable Skin Exam: Present: normal color, warm/dry, no cyanosis, mottled Lymphatic: Present: no adenopathy Neurologic: Present: two way radio technician II-XII nml as tested Appearance: Present: appropriate appearance, appropriate insight Eye contact: Present: cooperative, good eye contact, normal speech Thoughts: Present: normal thought pattern, no apparent hallucination Diagnostic Studies: Abnormal Lab Results 11/03/18 11/03/18 11/03/18 Range/Units 01:15 01:15 01:15 RBC 3.66 L (4.2-5.4) M/mm3 Hgb 10.1 L (12.5-16.0) gm/dL Hct 32.7 L (37.0-47.0) % MCHC 30.9 L (32-36) g/dl RDW 14.9 H (11.5-14.0) % Lymphocytes % 15.6 L (20-51) % Monocytes % 12.5 H (0.0-9) % Lymphocytes # 1.15 L (1.5-3.5) k/mm3 Potassium 3.3 L (3.4-4.6) mmol/L Est GFR (Non-Af Amer) 51 L (60-130) mL/min Random Glucose 156 H (70-110) mg/dL Alkaline Phosphatase 458 H (50-170) U/L Ammonia 42.0 H (11-35) mcmol/L Albumin 2.1 L (3.4-5.0) gm/dl Laboratory Results WBC 7.4 K/mm3 (4.0-10.5) 11/03/18 01:15 RBC 3.66 M/mm3 (4.2-5.4) L 11/03/18 01:15 Hgb 10.1 gm/dL (12.5-16.0) L 11/03/18 01:15 Hct 32.7 % (37.0-47.0) L 11/03/18 01:15 MCV 89.3 fl (78-100) 11/03/18 01:15 MCH 27.6 pg (27-31) 11/03/18 01:15 MCHC 30.9 g/dl (32-36) L 11/03/18 01:15 RDW 14.9 % (11.5-14.0) H 11/03/18 01:15 Plt Count 162 K/mm3 (150-450) 11/03/18 01:15 MPV 10.5 fl (8-12.5) 11/03/18 01:15 Immature Gran % (Auto) 0.40 % (0.001-0.429) 11/03/18 01:15 Immature Gran # (Auto) 0.03 K/mm3 (0.000-0.0310) 11/03/18 01:15 Neutrophils % 68.0 % (42-75.0) 11/03/18 01:15 Lymphocytes % 15.6 % (20-51) L 11/03/18 01:15 Monocytes % 12.5 % (0.0-9) H 11/03/18 01:15 Eosinophils % 2.6 % (0.0-3.0) 11/03/18 01:15 Basophils % 0.9 % (0.0-1.0) 11/03/18 01:15 Nucleated RBC % 0.0 k/mm3 (0-1) 11/03/18 01:15 Neutrophils # 5.0 K/mm3 (1.3-6.0) 11/03/18 01:15 Lymphocytes # 1.15 k/mm3 (1.5-3.5) L 11/03/18 01:15 Monocytes # 0.9 k/mm3 (0.0-1.0) 11/03/18 01:15 Eosinophils # 0.2 k/mm3 (0.0-0.7) 11/03/18 01:15 Absolute Basophils 0.1 k/mm3 (0.0-0.1) 11/03/18 01:15 Sodium 137 mmol/L (132-142) 11/03/18 01:15 Plasma Sodium 138 mmol/L (130-142) 11/03/18 01:15 Potassium 3.3 mmol/L (3.4-4.6) L 11/03/18 01:15 Chloride 103 mmol/L (97-106) 11/03/18 01:15 Carbon Dioxide 25.5 mmol/L (24-32.6) 11/03/18 01:15 Anion Gap 11.8 mmol/L (6.8-13.8) 11/03/18 01:15 BUN 12 mg/dL (3-23) 11/03/18 01:15 Creatinine 1.13 mg/dL (0.4-1.4) 11/03/18 01:15 Est GFR (Non-Af Amer) 51 mL/min (60-130) L 11/03/18 01:15 BUN/Creatinine Ratio 10.6 (9.0-21.6) 11/03/18 01:15 Random Glucose 156 mg/dL (70-110) H 11/03/18 01:15 Calcium 8.0 mg/dL (7.9-10.9) 11/03/18 01:15 Calcium Adj for Albumin 9.2 mg/dL (8.4-10.2) 11/03/18 01:15 Total Bilirubin 0.7 mg/dL (0.0-1.1) 11/03/18 01:15 AST 46 U/L (0-48) 11/03/18 01:15 ALT 31 U/L (19-67) 11/03/18 01:15 Alkaline Phosphatase 458 U/L (50-170) H 11/03/18 01:15 Ammonia 42.0 mcmol/L (11-35) H 11/03/18 01:15 Total Protein 7.3 gm/dL (6.2-8.2) 11/03/18 01:15 Albumin 2.1 gm/dl (3.4-5.0) L 11/03/18 01:15 Assessment/Plan - Narrative Narrative: I will increase her hydrocodone 2 every 4 hours when necessary for pain and see how she does with that. If her pain is adequately controlled she could be sent back to the [facility] to nursing home. I will monitor her progress through today and tonight and anticipate discharge tomorrow morning. - Assessment/Plan (1) Low back pain Problem: Acute Qualifiers: Chronicity: acute Back pain laterality: midline Sciatica presence: without sciatica Qualified Code(s): M54.5 - Low back pain (2) Mobility impaired Problem: Acute (3) Generalized weakness Problem: Acute (4) Diabetes mellitus type 2 in nonobese Problem: Chronic
[2018-11-03] MEDS: CIPROFLOXACIN HCL 500 MG TABLET PO SCH (22:32)
[2018-11-04] MEDS: oxyCODONE HCL 5 MG TABLET PO PRN ×3 (01:45→12:32)
[2018-11-04] MEDS: CIPROFLOXACIN HCL 500 MG TABLET PO SCH (08:26)
--- NOTE | 2018-11-04 12:22 | DS ---
(1) Low back pain Problem: Acute Qualifiers: Chronicity: acute Back pain laterality: midline Sciatica presence: without sciatica Qualified Code(s): M54.5 - Low back pain (2) Mobility impaired Problem: Acute (3) Generalized weakness Problem: Acute (4) Diabetes mellitus type 2 in nonobese Problem: Chronic Description of Stay: Fifi Washburn is a 68-year-old female admitted through the emergency room with intense low back pain that she couldn't manage at home. I increased her hydrocodone to 1 every 4 hours as needed for pain and this is helped her back pain considerably. She is tolerating it well. She probably should have an MRI of her lumbar spine done as an outpatient. This morning she is uncomfortable but the severe pain is controlled somewhat. He will be discharged to return to the [facility] long-term. Apparently her daughter will pick her up and take her back there today. Otherwise there's no change in her medications. [id number] for group home at the [facility]: Fifi came here from the [facility] and had been in their group home facility for physical therapy and rehabilitation. She will need to resume her physical therapy tomorrow as previously planned. Her pain is better controlled now by giving her pain medicine more frequently so she should be able to participate in therapy a little better. She will also need group home for medication education and management. Physical therapy is to decrease pain and improve mobility and balance and strength. She will benefit from continued group home and physical therapy. Procedures Performed: none Results and Findings: Lab Pending Results 11/03/18 01:15: WBC 7.4, RBC 3.66 L, Hgb 10.1 L, Hct 32.7 L, MCV 89.3, MCH 27.6, MCHC 30.9 L, RDW 14.9 H, Plt Count 162, MPV 10.5, Immature Gran % (Auto) 0.40, Immature Gran # (Auto) 0.03, Neutrophils % 68.0, Lymphocytes % 15.6 L, Monocytes % 12.5 H, Eosinophils % 2.6, Basophils % 0.9, Nucleated RBC % 0.0, Neutrophils # 5.0, Lymphocytes # 1.15 L, Monocytes # 0.9, Eosinophils # 0.2, Absolute Basophils 0.1 11/03/18 01:15: Sodium 137, Plasma Sodium 138, Potassium 3.3 L, Chloride 103, Carbon Dioxide 25.5, Anion Gap 11.8, BUN 12, Creatinine 1.13, Est GFR (Non-Af Amer) 51 L, BUN/Creatinine Ratio 10.6, Random Glucose 156 H, Calcium 8.0, Calcium Adj for Albumin 9.2, Total Bilirubin 0.7, AST 46, ALT 31, Alkaline Phosphatase 458 H, Total Protein 7.3, Albumin 2.1 L 11/03/18 01:15: Ammonia 42.0 H Discharge Location: [facility] Disposition: SNF Condition: Stable Face to Face Encounter completed per [facility] Guidelines: Yes Level of Care: SNF Discharge Activity: Activity as tolerated Discharge Diet: General/regular food Mcfp Therapy: Physicial Therapy, Occupation Therapy Referrals: Kavya Jacinto MD [Primary Care Provider] - Problem Oriented Discharge Instructions to Patient/Family: Back Pain, Adult, [id number] Prescriptions (Any new or edited meds): oxyCODONE HCL [Oxycodone] 5 mg PO Q4H PRN #60 tab PRN Reason: Pain Complete Home Medications List: Complete Home Medication List: duloxetine 30 mg capsule,delayed release 60 mg PO DAILY #180 cap 09/03/18 aspirin 81 mg chewable tablet 81 mg PO DAILY #90 tab 09/13/18 fludrocortisone 0.1 mg tablet 0.1 mg PO DAILY #90 tab 09/13/18 furosemide 40 mg tablet 40 mg PO DAILY #90 tab 09/13/18 pantoprazole 40 mg tablet,delayed release 40 mg PO DAILY #90 tab 09/13/18 pravastatin 20 mg tablet 20 mg PO DAILY #90 tab 09/17/18 Insulin Glargine,Hum.rec.anlog [Lantus] 30 unit SQ BID 10/17/18 ciprofloxacin 500 mg tablet 500 mg PO DAILY #90 tab 10/22/18 Acetaminophen 325 mg PO Q4H PRN 11/03/18 Cholecalciferol (Vitamin D3) [Vitamin D3] 1,000 unit PO DAILY 11/03/18 Insulin Aspart [Novolog] 16 units SC TIDWM 11/03/18 Lactulose [Enulose] 45 ml PO BID 11/03/18 Nadolol 20 mg PO DAILY 11/03/18 Pramipexole Di-HCl [Pramipexole Dihydrochloride] 0.25 mg PO HS 11/03/18 Rifaximin [Xifaxan] 550 mg PO BID 11/03/18 Spironolactone 25 mg PO DAILY 11/03/18 oxyCODONE HCL [Oxycodone] 5 mg PO Q4H PRN #60 tab 11/04/18
[2018-11-04 12:40] VITALS: BP 122/64
== END 2018-11-04 12:58 ==
LOC: MS 00:35 → ER 00:35 → MS 03:20
PROVIDERS: ADMIT Family Medicine; ATTEND Internal Medicine
CPT/HCPCS: 36415; 72131; 80053; 82140; 85025; 87081; 96374; 96375; 99285; G0378

== ENCOUNTER 2019-07-29 16:16 | Observation (INO) ==
[2019-07-29] MEDS ORDERED: POTASSIUM CHLORIDE IN WATER 100 ML IV ONE (16:57)
[2019-07-29] MEDS ORDERED: NORMAL SALINE 1,000 ML IV ONE (16:57)
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
[2019-07-29] MEDS ORDERED: ACETAMINOPHEN 500 MG TABLET PO PRN (21:01)
[2019-07-29] MEDS ORDERED: POLYVINYL ALCOHOL 150 DROP BTL OP PRN (21:36)
[2019-07-29] MEDS ORDERED: INSULIN GLARGINE,HUM.REC.ANLOG 100 UNITS/ML VIAL SC SCH (21:45)
[2019-07-29] MEDS ORDERED: LEVOFLOXACIN 250 MG TABLET ONE (21:53)
[2019-07-29] MEDS: LEVOFLOXACIN 500 MG TABLET PO SCH (22:10)
[2019-07-29] MEDS: PANTOPRAZOLE SODIUM 40 MG TABLET.EC PO SCH (22:10)
[2019-07-29] MEDS: GABAPENTIN 300 MG CAPSULE PO SCH (22:11)
[2019-07-29] MEDS: POTASSIUM CHLORIDE IN WATER 100 ML IV SCH ×2 (22:13→23:19)
[2019-07-30] MEDS: POTASSIUM CHLORIDE IN WATER 100 ML IV SCH ×3 (00:23→10:16)
[2019-07-30 06:52] LABS: Albumin * 1.8 gm/dl (3.4-5.0); Anion Gap 13.8 mmol/L (6.8-13.8); BUN/Creatinine Ratio 9.6 (9.0-21.6); Bilirubin, Total 0.9 mg/dL (0.0-1.1); Ca. Corrected For Albumin 8.9 mg/dL (8.4-10.2); Calcium * 7.5 mg/dL (7.9-10.9); Carbon Dioxide 22.9 mmol/L (24-32.6); Potassium 2.7 mmol/L (3.4-4.6); Total Protein 6.5 gm/dL (6.2-8.2)
[2019-07-30] MEDS ORDERED: INSULIN ASPART 100 UNITS/ML VIAL SC SCH ×2 (07:00→09:00)
[2019-07-30] MEDS ORDERED: POLYVINYL ALCOHOL 150 DROP BTL OP PRN (07:15)
--- NOTE | 2019-07-30 08:34 | PN ---
Progess Note - Interim Date: 07/30/19 Time: 08:28 Narrative: 07/30/19 08:28 Hypokalemia due to diarrhea from lactulose vs CDiff. r/o due to diuretic. UTI due to Klebsiella sensitive to Levaquin. Patient AAO x 3.feels better . has had siginificant decrease on her diarrhea since admission. Likely causes are lactulose, r/o Cdiff, lasix. will decrease asulosefor now, increase spironolactone.lactuose has been decreased to 20 grams daily. Will give her 2 more K riders and child caregiver Oral K at 9 and 12 noon. Possible dischqrge this afternoon if k is at least 3. 07/30/19 08:32
[2019-07-30] MEDS ORDERED: FUROSEMIDE 80 MG TABLET PO SCH (09:00)
[2019-07-30] MEDS ORDERED: LACTULOSE 10 G/15 ML SYRUP PO SCH ×3 (09:00)
[2019-07-30] MEDS ORDERED: FLUDROCORTISONE ACETATE 0.1 MG TABLET PO SCH (09:00)
[2019-07-30] MEDS ORDERED: POTASSIUM CHLORIDE 20 MEQ TABLET.SA PO SCH (09:00)
[2019-07-30] MEDS ORDERED: SPIRONOLACTONE 100 MG TABLET PO SCH ×2 (09:00)
[2019-07-30] MEDS ORDERED: FUROSEMIDE 40 MG TABLET PO SCH (09:00)
[2019-07-30] MEDS ORDERED: NADOLOL 40 MG TABLET PO SCH (09:00)
[2019-07-30] MEDS ORDERED: SPIRONOLACTONE PO SCH ×2 (09:00)
[2019-07-30] MEDS ORDERED: ZINC SULFATE 220 MG CAPSULE PO SCH (09:00)
[2019-07-30] MEDS ORDERED: RIFAXIMIN 200 MG TABLET PO SCH (09:00)
[2019-07-30] MEDS ORDERED: DULoxetine HCL 30 MG CAPSULE.SA PO SCH (09:00)
[2019-07-30] MEDS ORDERED: INSULIN LISPRO 100 UNITS/ML VIAL SC SCH ×2 (09:00→11:00)
[2019-07-30] MEDS: GABAPENTIN 300 MG CAPSULE PO SCH ×2 (09:05→12:07)
[2019-07-30] MEDS: POTASSIUM CHLORIDE 20 MEQ TABLET.SA PO SCH ×2 (09:05→12:08)
[2019-07-30] MEDS: PANTOPRAZOLE SODIUM 40 MG TABLET.EC PO SCH (09:06)
[2019-07-30] MEDS: INSULIN GLARGINE,HUM.REC.ANLOG 100 UNITS/ML VIAL SC SCH ×2 (09:07→10:37)
--- NOTE | 2019-07-30 09:07 | DS ---
(1) Diarrhea Problem: Acute Qualifiers: Diarrhea type: unspecified type Qualified Code(s): R19.7 - Diarrhea, unspecified (2) Hypokalemia due to loss of potassium Problem: Acute (3) Urinary tract infection Diagnosis(s): klebsiella pneumoniae UTI Problem: Acute Qualifiers: Urinary tract infection type: site unspecified Hematuria presence: without hematuria Qualified Code(s): N39.0 - Urinary tract infection, site not specified (4) Hypoalbuminemia Diagnosis(s): due to liver cirrhosis Problem: Chronic (5) Ascites Problem: Chronic Qualifiers: Ascites type: other type Qualified Code(s): R18.8 - Other ascites (6) Bilateral lower extremity edema Problem: Chronic (7) Depression Problem: Chronic (8) Diabetes mellitus type 2 in obese Problem: Chronic (9) Diabetic neuropathy Problem: Chronic Qualifiers: Diabetes mellitus type: type 2 Diabetes mellitus complication detail: diabetic polyneuropathy Qualified Code(s): E11.42 - Type 2 diabetes mellitus with diabetic polyneuropathy (10) Hyperlipidemia Problem: Chronic Qualifiers: Hyperlipidemia type: pure hypercholesterolemia Qualified Code(s): E78.00 - Pure hypercholesterolemia, unspecified (11) Hypoglycemia due to type 2 diabetes mellitus Problem: Chronic (12) Liver cirrhosis secondary to nonalcoholic steatohepatitis (RITCHIE) Problem: Chronic (13) History of orthostatic hypotension Problem: Chronic Date of Discharge:: 07/30/19 Hospital Course: She is a 69-year-old white female who is a resident of the [facility] with past medical history of cirrhosis, diabetes, hypertension, recent UTI, depression, heart failure with diastolic dysfunction, coronary artery disease who was admitted on 07/29/2019 because of hypokalemia. She was recently discharged from [facility] on 07/22/2019 for UTI, altered mental status from hepatic encephalopathy. She presented to my office for a regular office visit. She had been having diarrhea for about a week [employer]. I ordered labs which showed a potassium of 2.2. We called the [facility] and told him to bring her back to the emergency room prompting her admission. She was on lactulose 30 ml QID when she got discharged from [facility]. ESR is also elevated at 67. Ammonia is normal at 34.She was started on cefdinir on the for urinary tract infection. Culture grew Klebsiella, resistant to ceftriaxone which is the IV equivalent of oral cefdinir. Her antibiotic was and changed to Levaquin first sensitivity. Her diarrhea which she described as small to big volume, on and off, occurring about 4-5 times a day associated with some abdominal cramping mostly on her lower abdomen/suprapubic area. She denied any nausea or vomiting. Stool for CDiff ordered. She received potassium riders and oral potassium supplementation. Her potassium today is 2.7. We gave more K riders and oral K and her repeat K is 3.1 She is table to go back to the . Will keep her on Lactulose 30 ml BID from QID as her Ammonia although normal, is in the upper normal and rifaximin. She will continue with the increase in her Spironlactone as she is also on lasix for her ascites. Will add K 10 meq PO q daily x 4 days only and then d/c as her K is 3.1. Will recheck her BMP and ammonia level on Monday. She had hypoglycemia and her insulin doses were decrease for now until she get better PO intake. Follow up with PCP in 1 week. Procedures Performed: none Results and Findings: Lab Pending Results 07/29/19 17:00: Ammonia 34.0 07/29/19 17:00: Troponin I 0.023 07/30/19 04:45: Random Glucose 46 L D 07/30/19 06:00: Sodium 141, Plasma Sodium 142, Potassium 2.7 L D, Chloride 107 H, Carbon Dioxide 22.9 L, Anion Gap 13.8, BUN 13, Creatinine 1.35, Est GFR (Non- Af Amer) 41 L, BUN/Creatinine Ratio 9.6, Random Glucose 149 H D, Calcium 7.5 L, Calcium Adj for Albumin 8.9, Total Bilirubin 0.9, AST 31, ALT 25, Alkaline Phosphatase 219 H, Total Protein 6.5, Albumin 1.8 L Discharge Location: [facility] Disposition: Intermediate Care Facility ICF Condition: Fair Level of Care: ICF Discharge Activity: Activity as tolerated Discharge Diet: Low salt - 2 grams and below Referrals: Kavya Jacinto MD [Primary Care Provider] - Additional Patient Instructions (free text): Pt is from [facility], please call them and fax discharge orders to them. Follow-up with PCP in 1 week. Prescriptions (Any new or edited meds): Spironolactone [Aldactone] 250 mg PO DAILY #100 tab Transmission Status: Received by [place] Potassium Chloride [Klor-Con 10] 10 meq PO DAILY 4 Days #4 tab Transmission Status: Received by [facility] Insulin Glargine,Hum.rec.anlog [Lantus] 15 unit SUBCUT BID #3 ml Transmission Status: Received by [facility] Levofloxacin [Levaquin] 500 mg PO DAILY@1100 #5 tab Transmission Status: Received by [facility] Insulin Aspart [Novolog] 10 unit SUBCUT TIDWM #3 ml Transmission Status: Received by [facility] Complete Home Medications List: Complete Home Medication List: duloxetine 30 mg capsule,delayed release 60 mg PO DAILY #180 cap 09/03/18 fludrocortisone 0.1 mg tablet 0.1 mg PO DAILY #90 tab 09/13/18 Insulin Aspart [Novolog] See Protocol SC TID 11/03/18 Rifaximin [Xifaxan] 550 mg PO BID 11/03/18 Acetaminophen [Tylenol] 500 mg PO QID PRN 11/26/18 Sennosides [Senna Laxative] 8.6 mg PO PRN PRN 11/26/18 furosemide 40 mg tablet 80 mg PO DAILY tab 12/17/18 gabapentin 300 mg tablet,extended release 24 hr 300 mg PO TID #270 tab 02/13/19 famotidine 20 mg tablet 20 mg PO BID 05/30/19 polyvinyl alcohol-povidone 0.5 %-0.6 % eye drops 1 drp OP QID PRN #15 ml 05/30/19 zinc 50 mg tablet 220 mg PO DAILY 06/19/19 Lactulose [Enulose] 30 ml PO DAILY 07/29/19 Nadolol [Corgard] 10 mg PO DAILY 07/29/19 Insulin Aspart [Novolog] 10 unit SUBCUT TIDWM #3 ml 07/30/19 Insulin Glargine,Hum.rec.anlog [Lantus] 15 unit SUBCUT BID #3 ml 07/30/19 Levofloxacin [Levaquin] 500 mg PO DAILY@1100 #5 tab 07/30/19 Potassium Chloride [Klor-Con 10] 10 meq PO DAILY 4 Days #4 tab 07/30/19 Spironolactone [Aldactone] 250 mg PO DAILY #100 tab 07/30/19 Amb Orders for Discharge: Ammonia Time Frame: 08/05/19, Facility: [facility], Location: Laboratory Basic Metabolic Panel Time Frame: 08/05/19, Facility: [facility], Location: Laboratory
[2019-07-30] MEDS ORDERED: INSULIN GLARGINE,HUM.REC.ANLOG 100 UNITS/ML VIAL SC SCH (09:30)
[2019-07-30] MEDS: INSULIN LISPRO 100 UNITS/ML VIAL SC SCH ×2 (10:19→12:09)
[2019-07-30 12:02] LABS: Anion Gap 12.5 mmol/L (6.8-13.8); BUN/Creatinine Ratio 9.3 (9.0-21.6); Calcium * 7.6 mg/dL (7.9-10.9); Carbon Dioxide 24.6 mmol/L (24-32.6); Estimated Creat Clear 39.5; Potassium 3.1 mmol/L (3.4-4.6)
[2019-07-30] MEDS: LEVOFLOXACIN 500 MG TABLET PO SCH (12:07)
[2019-07-30 13:31] VITALS: BP 123/62
== END 2019-07-30 13:10 ==
LOC: ER 16:16 → MS 16:16
PROVIDERS: ADMIT Family Medicine; ATTEND Internal Medicine
DX: R18.8 Other ascites; R60.0 Localized edema; K74.60 Unspecified cirrhosis of liver; E88.09 Other disorders of plasma-protein metabolism, not elsewhere classified; E87.6 Hypokalemia; N39.0 Urinary tract infection, site not specified; E11.42 Type 2 diabetes mellitus with diabetic polyneuropathy; K75.81 Nonalcoholic steatohepatitis (NASH); E78.00 Pure hypercholesterolemia, unspecified; R19.7 Diarrhea, unspecified
CPT/HCPCS: 36415; 74019; 74020; 80048; 80053; 82140; 82947; 84484; 87045; 87046; 87081; 87493; 93005; 96365; 96366; 96372; 99285; G0378